=== PATIENT | female | born 1970 | race Caucasian/White ===

== ENCOUNTER 2016-07-15 13:33 | Emergency (ER) | payer MEDICAID, OTHER ==
[~2016-07-15] VITALS: Ht 147.3 cm; Wt 63.0 kg
[~2016-07-15 13:33] MED LIST: CHOL1CAP6 PO; FIORIC PO; MAGN1CAP PO; ONE50TAB4 PO; VITA100T15 PO
[2016-07-15 13:35] VITALS: BP 115/67; PULSE 70; RESP 20; TEMP 97.8; O2SAT 96
--- NOTE | 2016-07-15 14:20 | PD ---
HPI . right heel pain for 6 mts Chief Complaint: Pain: Acute or Chronic Time Seen by Provider: 14:20 Travel History International Travel<30 days: No Contact w/Intl Traveler<30days: No Traveled to known affect area: No History of Present Illness HPI 45 yr old female with no significant PMH here with c/o right heel pain for 6 mts. Patient says she has been experiencing right heel pain for over 6 mts. She has seen her PCP Dr. Chacon and was told to have xrays, however it has been 3 weeks and she has not heard any instructions back as where to have those done. She decided to come to the ED to get the xrays ordered and expedited. She denies any recent injury or trauma. She has no other complaints. 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) Social History Alcohol Use: No Tobacco Use: No Substance Use: No Allergies-Medications (Allergen,Severity, Reaction): Coded Allergies: Bactrim (Verified Allergy, Intermediate, 07/15/16) HIVES Reported Meds & Prescriptions Reported Meds & Active Scripts Active Mobic (Meloxicam) 7.5 Mg Tab 7.5 Mg PO DAILY Review of Systems General / Constitutional: No: Fever Eyes: No: Visual changes HENT: No: Headaches Cardiovascular: No: Chest Pain or Discomfort Respiratory: No: Shortness of Breath Gastrointestinal: No: Abdominal Pain Genitourinary: No: Dysuria Musculoskeletal: Positive: Pain (right heel pain) Skin: No Rash Neurologic: No: Weakness Psychiatric: No: Depression Endocrine: No: Polydipsia Hematologic/Lymphatic: No: Easy Bruising Physical Exam Narrative GENERAL: AAO x 3, no acute distress, Well-nourished, well-developed patient. SKIN: Warm and dry. No visible rashes or bruising. No visible abnormality of b/ l feet. HEAD: Normocephalic and atraumatic. EYES: No scleral icterus. No injection or drainage. ENT: No nasal drainage noted. Mucous membranes pink. Airway patent. NECK: Supple, trachea midline. No JVD. CARDIOVASCULAR: Regular rate and rhythm without murmurs, gallops, or rubs. RESPIRATORY: Breath sounds equal bilaterally. No accessory muscle use. No rhonchi or rales. GASTROINTESTINAL: Abdomen soft, non-tender, nondistended. EXTREMITIES: No cyanosis or edema. Right foot: heel tender to touch. No pain with movement. Flexion and extension normal. Sensation is intact. BACK: Nontender without obvious deformity. No CVA tenderness. PSYCH: AAO x 3, normal affect. Data Data Last Documented VS Vital Signs Date Time Temp Pulse Resp B/P Pulse Ox O2 Delivery O2 Flow Rate FiO2 07/15/16 13:35 97.8 70 20 115/67 96 Room Air Orders Ketorolac Inj (Toradol Inj) (07/15/16 14:45) MDM Medical Decision Making Medical Screen Exam Complete: Yes Emergency Medical Condition: Yes Medical Record Reviewed: Yes Differential Diagnosis Plantar fasciitis, less likely bone spur, less likely fracture Narrative Course 45 yr old female with no significant PMH here with c/o right heel pain for 6 mts. Patient says she has been experiencing right heel pain for over 6 mts. She has seen her PCP Dr. Chacon and was told to have xrays, however it has been 3 weeks and she has not heard any instructions back as where to have those done. She decided to come to the ED to get the xrays ordered and expedited. She denies any recent injury or trauma. She has no other complaints. Patient seen and examined. There are no acute findings on her exam other than some tenderness of entire right heel. I discussed with her the pathophysiology and disease process of plantar fasciitis, which is what I suspect she may have. I recommend follow-up with her primary care provider and referral to podiatry for further workup and treatment. I discussed with her that my index of suspicion for fracture is low, and she was in agreement. I recommended some anti-inflammatories to see if they help with her symptoms. She was encouraged to reach out to her primary care provider this week. Patient verbalized understanding of instructions, questions were answered, and thanked me for their care. I advised them if their condition worsens, please return to the nearest emergency room for further care. Diagnosis Primary Impression: Foot pain, left Additional Impression: Plantar fasciitis of left foot Patient Instructions: General Instructions, Plantar Fasciitis (ED), Plantar Fasciitis Exercises (GEN) Additional Instructions: Please return to emergency department if your symptoms return or worsen. Follow up with your primary care provider. Take medications as prescribed. As we discussed, you will need to see a silviculturist for these issues. Please follow-up with your primary care provider for appropriate referral. Med/Other Pt SpecificInfo: Prescription(s) given Scripts Meloxicam (Mobic)7.5 Mg Tab7.5 Mg PO DAILY #20 TAB Ref 0 Prov:Carol Saenz MD 07/15/16 Disposition: 01 DISCHARGE HOME Condition: Stable Sharlene Villalta Jul 15, 2016 14:20
[2016-07-15] MEDS ORDERED: MOBI7.5T PO (14:35)
[2016-07-15] MEDS ORDERED: KETOROLAC TROMETHAMINE 60 MG/2 ML (IM) VIAL IM ONE (14:45)
== END 2016-07-15 14:49 | disposition home or self-care (01) ==
LOC: NEPB 13:33
DX: M72.2 Plantar fascial fibromatosis (principal)
CPT/HCPCS: 96372; 99283; J1885

== ENCOUNTER 2017-03-22 19:00 | Inpatient (IN) | payer MEDICAID ==
[~2017-03-22] VITALS: Ht 147.3 cm; Wt 72.9 kg
[~2017-03-22 19:00] MED LIST changes: -CHOL1CAP6 PO; -FIORIC PO; -MAGN1CAP PO; +MOBI7.5T PO; -ONE50TAB4 PO; -VITA100T15 PO
[2017-03-22 19:01] VITALS: BP 120/67; PULSE 75; RESP 16; TEMP 98.5; O2SAT 97
[2017-03-22] MEDS ORDERED: IBUP1TAB7 PO (20:24)
[2017-03-22] MEDS ORDERED: MECL12.574 PO (20:26)
[2017-03-22] MEDS ORDERED: SIMV10TA PO (20:26)
[2017-03-22] MEDS ORDERED: SODIUM CHLOR 0.9% 1000 ML INJ 1,000 ML IV SCH (20:55)
[2017-03-22] MEDS ORDERED: SODIUM CHLORIDE 0.9% FLUSH 5 ML FLUSH IV FLUSH PRN (21:00)
[2017-03-22 21:26] LABS: AUTOMATED NEUTROPHIL # 4.9 TH/MM3 (1.8-7.7); BASOPHIL % 0.7 % (0.0-2.0); EOSINOPHIL # 0.2 TH/MM3 (0-0.4); EOSINOPHIL % 2.4 % (0.0-4.0); HEMATOCRIT 36.3 % (35.0-46.0); HEMO FLAGS DIFF FINAL; LYMPH % 24.6 % (9.0-44.0); LYMPHOCYTE # 1.8 TH/MM3 (1.0-4.8); MEAN CELL VOLUME 89.7 FL (80.0-100.0); MEAN CORPUSCULAR HEMOGLOBIN 29.4 PG (27.0-34.0); MEAN CORPUSCULAR HGB CONC 32.8 % (32.0-36.0); MONO % 5.1 % (0.0-8.0); NEUT % 67.2 % (16.0-70.0); PLATELET COUNT 232 TH/MM3 (150-450); RED BLOOD COUNT 4.05 MIL/MM3 (4.00-5.30); RED CELL DISTRIBUTION WIDTH 15.7 % (11.6-17.2); WHITE BLOOD COUNT 7.4 TH/MM3 (4.0-11.0)
[2017-03-22 21:39] LABS: APTT (PATIENT) 26.1 SEC (24.3-30.1); PROTHROMBIN TIME - PATIENT 11.2 SEC (9.8-11.6)
[2017-03-22 21:45] LABS: ALT (GPT) 26 U/L (10-53)
[2017-03-22 21:55] LABS: ALKALINE PHOSPHATASE 83 U/L (45-117); ANION GAP 5 MEQ/L (5-15); AST (GOT) 20 U/L (15-37); BICARBONATE 25.8 MEQ/L (21.0-32.0); BLOOD UREA NITROGEN 10 MG/DL (7-18); CHLORIDE 106 MEQ/L (98-107); GLOMERULAR FILTRATION RATE 116 ML/MIN (>89); SODIUM (NA) 137 MEQ/L (136-145); TOTAL BILIRUBIN ADULT 0.3 MG/DL (0.2-1.0)
--- NOTE | 2017-03-22 21:55 | PD ---
HPI Chief Complaint: Altered Mental Status Time Seen by Provider: 20:45 Travel History International Travel<30 days: No Contact w/Intl Traveler<30days: No Traveled to known affect area: No History of Present Illness HPI Patient is a 46-year-old female with history of intracranial shunt as well as brain tumors, presents to emergency room with her mother for evaluation of altered mental status. As per patient's mother, patient has not been acting like her normal self for the past week. Patient reports that given her past medical history of intracranial shunts and brain tumors, for the past week, she has been ataxic with abnormal gait. Mom reports the patient has not been acting like her normal self. Reports no fevers or chills, reports that her daughter is just "off." Mom reports that patient has history of a shunt placed in 2012, reports that she was diagnosed with a brain tumor, reports that the initial tumor was resected and a shunt was placed. She then was diagnosed with another brain tumor which the neurosurgeon was watching. Patient was initially seen Dr. Cagle at [facility] at [facility]. Reports that she was last seen 2 years ago as her insurance company changed. Patient reports that she has not seen a neurologist since then, that she was having MRI was of her brain every 6 months for evaluation of brain tumor, last MRI was 2 years ago. Patients mom reports that she has been trying to make a follow-up appointment with a neurosurgeon, she did make an appointment with a neurosurgeon but does not remember his name. Patient at this time with no complaints, denies headache , denies chest pain or shortness of breath. Patient denies any fevers or chills. Patient reports dizziness. Patient denies any trauma to her head or neck. 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) Social History Alcohol Use: No Tobacco Use: No Substance Use: No Allergies-Medications (Allergen,Severity, Reaction): Coded Allergies: sulfamethoxazole (Unverified Allergy, Intermediate, 03/22/17) HIVES trimethoprim (Unverified Allergy, Intermediate, 03/22/17) HIVES Reported Meds & Prescriptions Reported Meds & Active Scripts Active Reported Simvastatin 10 Mg Tab 10 Mg PO DAILY Meclizine (Meclizine HCl) 12.5 Mg Tab 12.5 Mg PO DIRECTED PRN Ibuprofen 800 Mg Tab 800 Mg PO Q8H PRN Review of Systems General / Constitutional: No: Fever Eyes: No: Visual changes HENT: No: Headaches Cardiovascular: No: Chest Pain or Discomfort Respiratory: No: Shortness of Breath Gastrointestinal: No: Abdominal Pain Genitourinary: No: Dysuria Musculoskeletal: No: Pain Skin: No Rash Neurologic: Positive: Dizziness, Ataxia, Change in Mentation, No: Weakness Psychiatric: No: Depression Endocrine: No: Polydipsia Hematologic/Lymphatic: No: Easy Bruising Physical Exam Narrative GENERAL: NAD SKIN: Focused skin assessment warm/dry. HEAD: Atraumatic. Normocephalic. EYES: Pupils equal and round. No scleral icterus. No injection or drainage. ENT: No nasal bleeding or discharge. Mucous membranes pink and moist. NECK: Trachea midline. No JVD. CARDIOVASCULAR: Regular rate and rhythm. No murmur appreciated. RESPIRATORY: No accessory muscle use. Clear to auscultation. Breath sounds equal bilaterally. GASTROINTESTINAL: Abdomen soft, non-tender, nondistended. Hepatic and splenic margins not palpable. MUSCULOSKELETAL: No obvious deformities. No clubbing. No cyanosis. No edema. NEUROLOGICAL: Awake and alert. No obvious cranial nerve deficits. Motor grossly within normal limits. Normal speech. PSYCHIATRIC: Appropriate mood and affect; insight and judgment normal. Data Data Last Documented VS Vital Signs Date Time Temp Pulse Resp B/P (MAP) Pulse Ox O2 Delivery O2 Flow Rate FiO2 03/23/17 00:26 80 18 109/64 (79) 98 Room Air 03/22/17 19:01 98.5 Orders Orders Mri Brain W&W/O Contrast (03/22/17 ) Electrocardiogram (03/22/17 20:55) Complete Blood Count With Diff (03/22/17 20:55) Comprehensive Metabolic Panel (03/22/17 20:55) Creatine Kinase (Cpk) (03/22/17 20:55) Prothrombin Time / Inr (Pt) (03/22/17 20:55) Act Partial Throm Time (Ptt) (03/22/17 20:55) Troponin I (03/22/17 20:55) Urinalysis - C+S If Indicated (03/22/17 20:55) Ecg Monitoring (03/22/17 20:55) Iv Access Insert/Monitor (03/22/17 20:55) Oximetry (03/22/17 20:55) Sodium Chloride 0.9% Flush (Ns Flush) (03/22/17 21:00) Sodium Chlor 0.9% 1000 Ml Inj (Ns 1000 M (03/22/17 20:55) Meclizine (Antivert) (03/22/17 22:00) Ct Brain W/O Iv Contrast(Rout) (03/22/17 ) Urine Culture (03/22/17 22:25) Admit Order (Ed Use Only) (03/23/17 01:04) Labs Laboratory Tests Test 03/22/17 21:04 03/22/17 22:25 White Blood Count 7.4 TH/MM3 Red Blood Count 4.05 MIL/MM3 Hemoglobin 11.9 GM/DL Hematocrit 36.3 % Mean Corpuscular Volume 89.7 FL Mean Corpuscular Hemoglobin 29.4 PG Mean Corpuscular Hemoglobin Concent 32.8 % Red Cell Distribution Width 15.7 % Platelet Count 232 TH/MM3 Mean Platelet Volume 7.6 FL Neutrophils (%) (Auto) 67.2 % Lymphocytes (%) (Auto) 24.6 % Monocytes (%) (Auto) 5.1 % Eosinophils (%) (Auto) 2.4 % Basophils (%) (Auto) 0.7 % Neutrophils # (Auto) 4.9 TH/MM3 Lymphocytes # (Auto) 1.8 TH/MM3 Monocytes # (Auto) 0.4 TH/MM3 Eosinophils # (Auto) 0.2 TH/MM3 Basophils # (Auto) 0.0 TH/MM3 CBC Comment DIFF FINAL Differential Comment Prothrombin Time 11.2 SEC Prothromb Time International Ratio 1.0 RATIO Activated Partial Thromboplast Time 26.1 SEC Blood Urea Nitrogen 10 MG/DL Creatinine 0.56 MG/DL Random Glucose 91 MG/DL Total Protein 7.3 GM/DL Albumin 3.5 GM/DL Calcium Level 8.8 MG/DL Alkaline Phosphatase 83 U/L Aspartate Amino Transf (AST/SGOT) 20 U/L Alanine Aminotransferase (ALT/SGPT) 26 U/L Total Bilirubin 0.3 MG/DL Sodium Level 137 MEQ/L Potassium Level 4.4 MEQ/L Chloride Level 106 MEQ/L Carbon Dioxide Level 25.8 MEQ/L Anion Gap 5 MEQ/L Estimat Glomerular Filtration Rate 116 ML/MIN Total Creatine Kinase 79 U/L Troponin I LESS THAN 0.02 NG/ML Urine Color LIGHT-YELLOW Urine Turbidity CLEAR Urine pH 7.5 Urine Specific Tiller 1.007 Urine Protein NEG mg/dL Urine Glucose (UA) NEG mg/dL Urine Ketones NEG mg/dL Urine Occult Blood NEG Urine Nitrite NEG Urine Bilirubin NEG Urine Urobilinogen LESS THAN 2.0 MG/DL Urine Leukocyte Esterase NEG Urine Squamous Epithelial Cells 0-5 /hpf Urine Bacteria RARE /hpf Urine Mucus RARE /lpf Urine Yeast (Budding) OCC Microscopic Urinalysis Comment CATH-CULTURE IND MDM Medical Decision Making Medical Screen Exam Complete: Yes Emergency Medical Condition: Yes Medical Record Reviewed: Yes Interpretation(s) EKG at 211: NSR at 71bpm, qt/qtc: 352/375, no acute st or t wave changes Vital Signs Date Time Temp Pulse Resp B/P (MAP) Pulse Ox O2 Delivery O2 Flow Rate FiO2 03/22/17 19:01 98.5 75 16 120/67 (84) 97 Room Air Differential Diagnosis Electrolyte abnormality, intracranial tumor versus intracranial hemorrhage, vertebrobasilar insufficiency Narrative Course During the course of the patients emergency department visit, the patients history, examination, and differential diagnosis were reviewed with the patient. The patient was placed on a monitor technician with oximetry and frequent blood pressure monitoring. The patient had a 20-gauge IV access obtained and blood work sent for analysis. The patient was initially provided IV fluids The patients laboratory studies were reviewed and remarkable for: CBC & BMP Diagram 03/22/17 21:04 Total Protein 7.3, Albumin 3.5, Calcium Level 8.8, Alkaline Phosphatase 83, Aspartate Amino Transf (AST/SGOT) 20, Alanine Aminotransferase (ALT/SGPT) 26, Total Bilirubin 0.3 MRI of the brain with and without contrast was initially ordered, MRI as unable to be performed as it is unknown will kind of shunt she has. Plan to obtain records from [facility]. In the meantime, will obtain ct of head. Patient will require admission to the hospital for further evaluation of her altered mental status and gait dysfunction Last Impressions Head CT 03/22/17 0000 Signed Impressions: Service Date/Time: Wednesday, March 22, 2017 23:02 - CONCLUSION: Abnormal appearance to the right frontal lobe with cerebral edema, effacement of the right lateral ventricle, and midline shift towards the left. Differential considerations include infarct and tumor. Recommend further characterization with MRI with and without contrast. Larry Muller MD CT of the head with concerns infarct versus tumor. Patient require MRI with and without contrast to further differentiate this abnormal appearance of the CT of the head. Patient does have a known tumor to her brain, records were requested from [facility]. We are unable to perform an MRI until I find out what the shunt used. Patient will admission to the hospital this time. Case reviewed with Dr. Barber who accepts pt to service Records were received from [facility]. Critical Care Narrative Aggregate critical care time was 45 minutes. Time to perform other separately billable procedures was not included in the critical care time. My time did not include minutes spent treating any other patients simultaneously or on activities that did not directly contribute to the patient's treatment. The services I provided to this patient were to treat and/or prevent clinically significant deterioration that could result in: , decompensation, deterioration I provided critical care services requiring my management, as noted below: Chart data review, documentation time, medication orders and management, vital sign assessments/reviewing monitor data, ordering and reviewing lab tests, ordering and interpreting/reviewing x-rays and diagnostic studies, care of the patient and discussion of the patient with the admitting physicians. Diagnosis Primary Impression: Altered mental status, unspecified Additional Impressions: Ataxia Cerebral infarct Admitting Information Admitting Physician Requests: Admit Reina Villeda DO Mar 22, 2017 21:55
[2017-03-22 21:57] LABS: CREATINE KINASE 79 U/L (26-192); POTASSIUM 4.4 MEQ/L (3.5-5.1)
[2017-03-22] MEDS ORDERED: MECLIZINE HCL 25 MG TAB PO ONE (22:00)
[2017-03-22 22:44] LABS: BLOOD, URINE NEG (NEG); GLUCOSE,URINE NEG (NEG); KETONE, URINE NEG (NEG); NITRITE,URINE NEG (NEG); PH, URINE 7.5 (5.0-8.5); URINE COLOR LIGHT-YELLOW (YELLW/STRAW)
[2017-03-22 23:00] LABS: MUCUS URINE RARE /lpf (OCC)
[2017-03-22 23:01] LABS: BACTERIA, URINE RARE /hpf; COMMENT (UR) CATH-CULTURE IND; CULTURE IF INDICATED CATH CULTURE IND; SQUAMOUS EPITHELIAL CELL URINE 0-5 /hpf (0-5)
[2017-03-22 23:12] VITALS: BP 145/62; PULSE 84; RESP 18; O2SAT 100
[2017-03-22 23:13] VITALS: O2SAT 100
--- NOTE | 2017-03-22 23:36 | RADRPT ---
EXAM DATE/TIME: 03/22/2017 23:02 [facility] COMPARISON: CT BRAIN W & W/O CONTRAST, January 24, 2016, 20:44. INDICATIONS : Altered mental status. 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 ventricular shunt ENCOUNTER: Initial ACUITY: 1 day PAIN SCALE: Non-responsive LOCATION: cranial TECHNIQUE: Multiple contiguous axial images were obtained of the head. Using automated exposure control and adj ustment of the mA and/or kV according to patient size, radiation dose was kept as low as reasonably a chievable to obtain optimal diagnostic quality images. DICOM format image data is available electro nically for review and comparison. FINDINGS: Examination is abnormal. Prior CT in January 2016 demonstrated ventriculostomy catheter in the rig ht frontal region and left craniotomy. There are new findings on today's CT including right frontal cerebral edema, 3 mm midline shift to the left at the level of the 3rd ventricle, and effacement of t he frontal horn and body of the right lateral ventricle. These findings suggest tumor or infarct in the right frontal lobe. There is good nava-white matter differentiation in the left frontal lobe. R ight ventriculostomy catheter is in place with the tip near the 3rd ventricle. Left craniotomy defect with good approximation of the calvarial prosthesis. In the posterior fossa, there is a hyperdensit y in the posterior right bjorn with poorly defined margins and measuring 9 mm.. CONCLUSION: Abnormal appearance to the right frontal lobe with cerebral edema, effacement of the right lateral ve ntricle, and midline shift towards the left. Differential considerations include infarct and tumor. Recommend further characterization with MRI with and without contrast. Larry Muller MD on March 22, 2017 at 23:13 Board Certified Radiologist. This report was verified electronically.
[2017-03-23] VITALS (16 sets, daily range): BP systolic 99–125; BP diastolic 53–86; PULSE 70–99; RESP 15–25; TEMP 97.6–98.8; O2SAT 92–99
[2017-03-23] MEDS ORDERED: SODIUM CHLORIDE 0.9% FLUSH 10 ML FLUSH IV FLUSH PRN (01:15)
[2017-03-23] MEDS ORDERED: MAGNESIUM HYDROXIDE SUSP 30 ML CUP PO PRN (01:15)
[2017-03-23] MEDS ORDERED: RESP: ALBUTEROL 2.5 MG/3 ML NEB (PRN) INH (01:15)
[2017-03-23] MEDS ORDERED: CHLORHEXIDINE GLUCONATE 2 % 1 PACK (2 CLOTHS) TOP PRN (01:15)
[2017-03-23] MEDS ORDERED: ONDANSETRON HCL 4 MG/2 ML VIAL IV PUSH PRN (01:15)
[2017-03-23] MEDS ORDERED: BISACODYL 10 MG SUPP RECTAL PRN (01:15)
[2017-03-23] MEDS ORDERED: MISCELLANEOUS NURSING INFORMATION XX SCH (01:15)
[2017-03-23] MEDS ORDERED: LACTULOSE SYRUP 20 GM/30 ML CUP PO PRN (01:15)
[2017-03-23] MEDS ORDERED: SENNOSIDES 8.6 MG TAB PO PRN (01:15)
[2017-03-23] MEDS: ACETAMINOPHEN 325 MG TAB PO PRN ×3 (02:22→11:31)
[2017-03-23] MEDS: SODIUM CHLOR 0.9% 1000 ML INJ 1,000 ML IV SCH ×3 (02:22→23:18)
[2017-03-23] MEDS: CHLORHEXIDINE GLUCONATE 2 % 1 PACK (2 CLOTHS) TOP SCH (04:00)
[2017-03-23] MEDS: DEXAMETHASONE SOD PHOS 4 MG/ML VIAL IV PUSH SCH ×4 (06:00→23:18)
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
[2017-03-23] MEDS ORDERED: MECLIZINE HCL 25 MG TAB PO PRN (08:45)
[2017-03-23] MEDS: SODIUM CHLORIDE 0.9% FLUSH 10 ML FLUSH IV FLUSH SCH ×2 (09:00→20:52)
[2017-03-23] MEDS: PRAVASTATIN SOD 20 MG TAB PO SCH (09:41)
[2017-03-23] MEDS: PANTOPRAZOLE SOD 40 MG DELAYED RELEASE TAB PO SCH (09:41)
[2017-03-23] MEDS: DOCUSATE SODIUM 50 MG/SENNA 8.6 MG TAB PO SCH ×2 (09:41→21:00)
--- NOTE | 2017-03-23 13:20 | HHI.CCPN ---
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 emergency department for "not acting like herself", headache, and abnormal gait for about 3 weeks. Her mother notes that she is very slow with performing ADLs like buckling her seatbelt and dressing herself. Her gait has been slow and she leans to the left when she walks .No falls, seizures, vision changes. Reportedly she has a known second brain tumor and was getting serial MRI every 6 months. She has been unable to follow up with neurology or neurosurgery due to financial/insurance status. CT brain demonstrates right frontal lobe edema versus infarct. There is some mass effect with about 3 mm of midline shift. MRI pending. No fever, chills, chest pain, shortness of breath, palpitations, dysuria. Remainder of review of systems negative. 03/23: Presently researching the make of BURNISHER shunt to decide if MRI compatible. No change in neuro status. Objective Vital Signs Date Time Temp Pulse Resp B/P (MAP) Pulse Ox O2 Delivery O2 Flow Rate FiO2 03/23/17 12:00 86 03/23/17 12:00 97.6 15 102/61 (75) 95 03/23/17 07:00 Room Air Intake and Output 03/23/17 03/23/17 03/24/17 08:00 16:00 00:00 Intake Total 240 ml Output Total 500 ml Balance -260 ml Result Diagram: 03/22/17210303/22/172103 Objective Remarks GENERAL: Well-nourished, well-developed obese female in ISC bed. SKIN: Warm and dry. HEAD: Atraumatic. Normocephalic. EYES: Pupils equal and round, 4 mm and reactive to 2 mm bilaterally. Extra ocular movements intact. No scleral icterus. No injection or drainage. ENT: No nasal bleeding or discharge. Mucous membranes pink and moist. NECK: Trachea midline. Airway widely patent. CARDIOVASCULAR: Regular rate and rhythm. NL S1S2. No murmurs rubs or gallops. No JVD. RESPIRATORY: Breathing comfortably on room air with no accessory muscle use. Clear to auscultation bilaterally. GASTROINTESTINAL: Abdomen soft, non-tender, nondistended. Bowel sounds active. No guarding. MUSCULOSKELETAL: Extremities without clubbing, cyanosis, or edema. No obvious deformities. NEUROLOGICAL: Awake and alert. No obvious cranial nerve deficits. No nystagmus. No pronator drift. Strength 4+/5 triceps/biceps/deltoid bilaterally. Otherwise strength is 5/5 throughout. No response to Babinski. A/P Problem List: (1) Headache ICD Code: R51 - Headache Status: Acute (2) Obesity ICD Code: E66.9 - Obesity, unspecified Status: Chronic (3) Cerebral edema ICD Code: G93.6 - Cerebral edema Status: Chronic (4) BURNISHER (ventriculoperitoneal) shunt status ICD Code: Z98.2 - Presence of cerebrospinal fluid drainage device Status: Chronic (5) Meningioma ICD Code: D32.9 - Benign neoplasm of meninges, unspecified Status: Chronic (6) BMI 30.0-30.9,adult ICD Code: Z68.30 - Body mass index (BMI) 30.0-30.9, adult Status: Chronic (7) Dyslipidemia ICD Code: E78.5 - Hyperlipidemia, unspecified Status: Chronic (8) Altered mental status ICD Code: R41.82 - Altered mental status, unspecified Status: Acute Assessment and Plan NEURO: History of benign L frontal lobe brain tumor s/p resection BURNISHER shunt in place R frontal lobe edema - ?secondary to tumor. Infarct could not be ruled out by CT. Will obtain MRI to glean more information and determine further workup and management from there. Decadron 4 mg IV q6 hours. Neurosurgery consulted. RESP: On room air CV: Hyperlipidemia Continue simvastatin 10 mg by mouth daily GI: Obesity Regular diet FEN/RENAL: Normal renal function. Monitor electrolytes and replace as indicated. ID: UA with rare bacteria, occasional yeast. She denies symptoms. Will follow- up culture HEME: H/o ALL age 1 s/p radiation 'No acute hematologic issues. ENDO: Euglycemic PROPH: SCDs for DVT prophylaxis. Protonix 40 mg by mouth daily for stress ulcer prophylaxis. ACCESS: Peripheral IV providing adequate access at this time Overall impression: Recent deterioration in performance of minor tasks. BURNISHER shunt in place following resection of benign brain tumor. MRI pending. Problem Qualifiers (1) Obesity: Rodolfo Mcnair MD Mar 23, 2017 13:20
--- NOTE | 2017-03-23 15:48 | EKG ---
Date Performed: 03/22/2017 Time Performed: 21:11:06 PTAGE: 46 years EKG: Sinus rhythm NORMAL ECG NO PREVIOUS TRACING DOCTOR: Vasyl Nuñez Interpretating Date/Time 03/23/2017 15:46:15
--- NOTE | 2017-03-23 16:03 | EKG ---
Date Performed: 03/23/2017 Time Performed: 07:23:25 PTAGE: 46 years EKG: Sinus rhythm LOW QRS VOLTAGE IN PRECORDIAL LEADS Compared to prior tracing no significant change BORDERLINE ECG PREVIOUS TRACING : 03/22/2017 21.11 DOCTOR: Vasyl Nuñez Interpretating Date/Time 03/23/2017 16:02:42
--- NOTE | 2017-03-23 16:04 | RADRPT ---
EXAM DATE/TIME: 03/23/2017 15:00 [facility] COMPARISON: No previous studies available for comparison. INDICATIONS : Shunt settings pre mri MEDICAL HISTORY : SALES RECRUITER shunt, tumor resection SURGICAL HISTORY : Craniotomy. ventricular shunt ENCOUNTER: Initial ACUITY: 2 days PAIN SCORE: 0/10 LOCATION: Bilateral cranial FINDINGS: Plate and screw fixation of the left calvarium is noted. SALES RECRUITER shunt catheter tubing is present with tip terminating in the midline. Shunt valve settings are unable to be determined on this examination. CONCLUSION: SALES RECRUITER shunt catheter as above. The valve settings are indeterminate. Davin Rushing MD on March 23, 2017 at 15:55 Board Certified Radiologist. This report was verified electronically.
[2017-03-23] MEDS ORDERED: GADODIAMIDE PF 287 MG/ML 5 ML VIAL (for RAD MRI) IVCONTRAST ONE (18:07)
--- NOTE | 2017-03-23 18:10 | RADRPT ---
EXAM DATE/TIME: 03/23/2017 16:32 [facility] COMPARISON: CT BRAIN W/O CONTRAST, March 22, 2017, 23:02. INDICATIONS : Altered mental status. CONTRAST: 14 cc Omniscan (gadodiamide) IV MEDICAL HISTORY : Leukemia. SURGICAL HISTORY : Craniotomy. Hysterectomy. 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 ENCOUNTER: Initial ACUITY: 1 day PAIN SCORE: 0/10 LOCATION: cranial TECHNIQUE: Multiplanar, multisequence MRI of the brain was performed both prior to and following the administrat ion of paramagnetic contrast. FINDINGS: There is no evidence for acute infarction. There is a focal area of decreased T2 signal and slig htly decreased T1 signal with a few thin rim of increased T1 signal at the level of the bjorn to the r ight of midline. There is no abnormal enhancement. This is hyperdense on CT. There is a right frontal ventriculostomy catheter are identified and the tip terminates in third ventricle. The patient has h ad previous left frontal craniotomy. There is a large heterogeneously enhancing extra-axial mass in t he right frontal region, which measures on axial image 153 5.8 x 2.7 cm in transverse dimension. It a buts the falx cerebri which is focally thickened, and there is abnormal enhancing tissue on axial amadeo ge 150 in the left frontal region as well measuring 8 x 8 mm in AP and transverse. This mass demonstr ates mass effect on the right frontal lobe and ventricular system displaced inferiorly, as well as mi dline shift from right to left of the 1.3 cm. Also present is a dural based right high parietal extra -axial mass with heterogeneous enhancement measuring 3 x 1.3 cm in transverse dimension. There is dif fuse dural enhancement greatest along the right cerebral convexity. There is focal dural thickening l ateral to the right temporal region measuring 8 x 17 mm in transverse and AP dimension. CONCLUSION: 1. Multiple avidly enhancing extra-axial dural based masses in the right frontal region. The dominant mass in the right frontal region demonstrates extension across the falx in the left frontal region. There is significant mass effect and vasogenic edema. Dural enhancement is identified. I believe ther e is also some intraparenchymal involvement. 2. The findings would be most concerning for malignant spread of lymphoma/leukemia given the clinical history. The focus of decreased T2 signal and blooming artifact in the right bjorn may represent a r emote insult/bleed or cavernoma. Davin Rushing MD on March 23, 2017 at 17:58 Board Certified Radiologist. This report was verified electronically.
--- NOTE | 2017-03-23 23:15 | PD.CONS ---
HPI Service Neurosurgery Consult Requested By Orthotic Technician Reason for Consult Brain lesion Primary Care Physician Isaak Chacon, History of Present Illness The patient is a 46-year-old female who is accompanied by her mother who gives most of the history. The patient has a history of leukemia diagnosed and treated at age 1-1/2 years with treatment up until 10 years old. In 2012 she was diagnosed with a left frontal meningioma which was resected at [facility] in 2012, with an additional surgery for a bone flap revision in 2012. She developed postoperative hydrocephalus and underwent a ventriculoperitoneal shunt in 2013. The mother states that the patient has had a known right sided tumor since 2012. This was previously followed with serial MRI imaging every 6-12 months at [facility] until the past year or 2 when the patient had a change in her insurance coverage and could no longer be seen at [facility]. Since then she has had a neurology evaluation and last week a CT scan was obtained per neurology. The patient's mother states that she did not hear back from the neurologist regarding the CT case scan results and proceeded to the emergency room last evening due to persistent progressive symptoms. The patient and her mother state that the patient has chronic headaches and dizziness which have not really changed recently. However the patient has noted approximately 1-2 weeks of progressive difficulty with comprehension and memory loss with increased difficulty coordinating her thought processes. However she does not have slurred speech. The mother states that her gait has become significantly slowed over the past week. She has also noted some problems with left upper extremity coordination. The patient denies any recent vision problems, nausea or vomiting. No fevers or chills. Review of Systems Constitutional: COMPLAINS OF: Dizziness, DENIES: Fever, Change in appetite Eyes: DENIES: Blurred vision, Diplopia, Vision loss Ears, nose, mouth, throat: DENIES: Hearing loss Respiratory: DENIES: Cough, Hemoptysis Cardiovascular: DENIES: Chest pain, Palpitations Gastrointestinal: DENIES: Abdominal pain, Nausea Musculoskeletal: DENIES: Joint pain, Muscle aches Hematologic/lymphatic: DENIES: Bruising Neurologic: COMPLAINS OF: Abnormal gait, Headache, Poor Balance, DENIES: Localized weakness Psychiatric: DENIES: Anxiety, Depression Past Family Social History Allergies: Coded Allergies: sulfamethoxazole (Unverified Allergy, Intermediate, 03/22/17) HIVES trimethoprim (Unverified Allergy, Intermediate, 03/22/17) HIVES Past Medical History 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 Previous radiation treatment. Negative diabetes, hypertension Dyslipidemia Past Surgical History Surgeries are as noted above. In previous hysterectomy. Reported Medications Reported Meds & Active Scripts Active Reported Simvastatin 10 Mg Tab 10 Mg PO DAILY Meclizine (Meclizine HCl) 12.5 Mg Tab 12.5 Mg PO DIRECTED PRN Ibuprofen 800 Mg Tab 800 Mg PO Q8H PRN Family History Uterine cancer in the patient's grandmother Social History No history of significant alcohol or cigarette use. Lives at home with her mother Physical Exam Vital Signs Vital Signs Date Time Temp Pulse Resp B/P (MAP) Pulse Ox O2 Delivery O2 Flow Rate FiO2 03/23/17 22:00 86 03/23/17 20:00 98.8 88 24 110/68 (82) 95 03/23/17 20:00 88 03/23/17 19:00 100 Room Air 03/23/17 18:00 99 03/23/17 16:00 77 18 108/53 (71) 96 03/23/17 16:00 77 03/23/17 15:00 82 03/23/17 14:00 90 03/23/17 12:00 86 03/23/17 12:00 97.6 86 15 102/61 (75) 95 03/23/17 11:32 22 03/23/17 10:00 96 03/23/17 08:00 91 03/23/17 08:00 98.2 91 25 125/57 (79) 97 03/23/17 07:00 70 03/23/17 07:00 95 Room Air 03/23/17 06:00 92 03/23/17 05:58 115/66 (82) 03/23/17 04:00 98.2 72 19 125/86 (99) 92 03/23/17 04:00 76 03/23/17 03:48 98.2 78 22 114/59 (77) 97 03/23/17 02:06 98.1 75 18 99/54 (69) 99 Room Air 03/23/17 00:26 80 18 109/64 (79) 98 Room Air 03/22/17 23:13 100 03/22/17 23:12 84 18 145/62 (89) 100 Room Air Physical Exam GENERAL: Pleasant moderately obese female in no apparent distress. SKIN: No abrasions, contusion, rash noted. Skin warm and dry. HEAD: Atraumatic. Normocephalic. No temporal or scalp tenderness. EYES: Sclerae are clear and nonicteric ENT: No facial edema or ecchymosis. No periorbital edema. No CSF otorrhea or rhinorrhea. No palpable facial fracture or deformity. NECK: Trachea midline. No cervical spine tenderness. CARDIOVASCULAR: Regular rate and rhythm without murmurs, gallops, or rubs. RESPIRATORY: Clear to auscultation. Breath sounds equal bilaterally. No wheezes , rales, or rhonchi. GASTROINTESTINAL: Abdomen soft, non-tender, nondistended. No hepato-splenomegaly , or palpable masses. No guarding. MUSCULOSKELETAL: Extremities without cyanosis, or edema. No joint tenderness, or edema noted. No calf tenderness. Dorsalis pedis pulses 2+ bilateral NEUROLOGICAL: Awake and alert Oriented X person, hospital Speech is clear, mild to moderate slowing of speech and thought processes. Follow simple commands well Answers questions appropriately Diminished judgment and insight Recent and remote memory are at least moderately diminished No evidence of anxiety or depression Pupils are equal and reactive to accommodation. Extra-ocular movements, visual morris to confrontation, facial sensorimotor, tongue, palate, sternocleidomastoid testing, hearing to finger rub testing, and bilateral shoulder shrug are all intact. Sensation is intact to light touch in all extremities Strength normal major flexion and extension groups all extremities Panchito's absent bilaterally No ankle clonus Plantar responses absent bilateral Fine motor movements are mildly impaired in the upper extremities Laboratory Laboratory Tests Test 03/23/17 04:30 Nasal Screen MRSA (PCR) MRSA NOT DETECTED Date/Time Source Procedure Growth Status 03/22/17 22:25 Urine Catheterized Urine Urine Culture - Preliminary RESULTS PENDING Resulted Result Diagram: 03/22/17210303/22/172103 Imaging Last Impressions Skull X-Ray 03/23/17 0000 Signed Impressions: Service Date/Time: Saturday, March 23, 2017 15:00 - CONCLUSION: GROUND WIRER shunt catheter as above. The valve settings are indeterminate. Davin Rushing MD Brain MRI 03/23/17 0000 Signed Impressions: Service Date/Time: Thursday, March 23, 2017 16:32 - CONCLUSION: 1. Multiple avidly enhancing extra-axial dural based masses in the right frontal region. The dominant mass in the right frontal region demonstrates extension across the falx in the left frontal region. There is significant mass effect and vasogenic edema. Dural enhancement is identified. I believe there is also some intraparenchymal involvement. 2. The findings would be most concerning for malignant spread of lymphoma/leukemia given the clinical history. The focus of decreased T2 signal and blooming artifact in the right bjorn may represent a remote insult/bleed or cavernoma. Davin Rushing MD Head CT 03/22/17 0000 Signed Impressions: Service Date/Time: Wednesday, March 22, 2017 23:02 - CONCLUSION: Abnormal appearance to the right frontal lobe with cerebral edema, effacement of the right lateral ventricle, and midline shift towards the left. Differential considerations include infarct and tumor. Recommend further characterization with MRI with and without contrast. Larry Muller MD Assessment and Plan Assessment and Plan Impression: The patient has a new large right frontal meningioma just adjacent to the ventriculoperitoneal shunt arising from the falx. There is a previously noted right parietal parafalcine and convexity meningioma which was present on a previous MRI from 2014, although somewhat larger on the MRI from 03/23/2017. Plan: Findings were discussed at length with the patient's mother. The previous MRI images from 2014 were reviewed with her and compared to continue MRI from 03/23/17. Due to the very extensive and rapid growth of the right frontal meningioma, I have recommended surgical resection of this lesion. There may be compromised of the sagittal sinus. Also the lesion is rather nonhomogeneous and appears to have significant vascularity. Therefore an MRA and MRV of the brain will be obtained prior to considering surgical intervention. Patient will be maintained on Decadron. She is at increased risk for seizure activity. Guanaco Leonard MD Mar 23, 2017 23:15
[2017-03-24] VITALS (7 sets, daily range): BP systolic 102–110; BP diastolic 52–61; PULSE 72–100; RESP 20–29; TEMP 97.7–98.2; O2SAT 92–100
[2017-03-24] MEDS: CHLORHEXIDINE GLUCONATE 2 % 1 PACK (2 CLOTHS) TOP SCH (04:00)
[2017-03-24] MEDS: DEXAMETHASONE SOD PHOS 4 MG/ML VIAL IV PUSH SCH ×2 (05:24→11:43)
[2017-03-24 06:27] LABS: AUTOMATED NEUTROPHIL # 8.3 TH/MM3 (1.8-7.7); BASOPHIL % 0.2 % (0.0-2.0); BICARBONATE 20.9 MEQ/L (21.0-32.0); HEMATOCRIT 34.9 % (35.0-46.0); HEMO FLAGS DIFF FINAL; LYMPHOCYTE # 0.9 TH/MM3 (1.0-4.8); MEAN CELL VOLUME 88.5 FL (80.0-100.0); MEAN CORPUSCULAR HEMOGLOBIN 29.6 PG (27.0-34.0); MEAN CORPUSCULAR HGB CONC 33.5 % (32.0-36.0); MONO % 0.8 % (0.0-8.0); PLATELET COUNT 249 TH/MM3 (150-450); POTASSIUM 3.8 MEQ/L (3.5-5.1); RED BLOOD COUNT 3.95 MIL/MM3 (4.00-5.30); RED CELL DISTRIBUTION WIDTH 15.4 % (11.6-17.2); WHITE BLOOD COUNT 9.3 TH/MM3 (4.0-11.0)
[2017-03-24] MEDS: DOCUSATE SODIUM 50 MG/SENNA 8.6 MG TAB PO SCH (08:12)
[2017-03-24] MEDS: PRAVASTATIN SOD 20 MG TAB PO SCH (08:12)
[2017-03-24] MEDS: PANTOPRAZOLE SOD 40 MG DELAYED RELEASE TAB PO SCH (08:12)
[2017-03-24] MEDS: SODIUM CHLORIDE 0.9% FLUSH 10 ML FLUSH IV FLUSH SCH (08:12)
--- NOTE | 2017-03-24 08:30 | HHI.CCPN ---
Subjective Remarks/Hospital Course 46 yo F with PMH of L frontal brain tumor status post resection in 2013 (pt reports meningioma?) and SENIOR COPYWRITER shunt, hyperlipidemia, ALL at age 3 with cure who presents to [facility] emergency department for "not acting like herself", headache, and abnormal gait for about 3 weeks. Her mother notes that she is very slow with performing ADLs like buckling her seatbelt and dressing herself. Her gait has been slow and she leans to the left when she walks .No falls, seizures, vision changes. Reportedly she has a known second brain tumor and was getting serial MRI every 6 months. She has been unable to follow up with neurology or neurosurgery due to financial/insurance status. CT brain demonstrates right frontal lobe edema versus infarct. There is some mass effect with about 3 mm of midline shift. MRI pending. No fever, chills, chest pain, shortness of breath, palpitations, dysuria. Remainder of review of systems negative. 03/23: Presently researching the make of SENIOR COPYWRITER shunt to decide if MRI compatible. No change in neuro status. 03/24: no complaints. still slightly weak on left, particularly LUE. MRI shows progression of disease, MRA/MRV pending for today. ROS negative. Objective Vital Signs Date Time Temp Pulse Resp B/P (MAP) Pulse Ox O2 Delivery O2 Flow Rate FiO2 03/24/17 07:00 100 Room Air 03/24/17 06:00 72 03/24/17 04:00 98.2 23 102/52 (69) Intake and Output 03/24/17 03/24/17 03/25/17 08:00 16:00 00:00 Intake Total 1000 ml Balance 1000 ml Result Diagram: 03/24/17 0533 03/24/17 0533 Objective Remarks GENERAL: obese female in [facility] bed. SKIN: Warm and dry. HEAD: Atraumatic. Normocephalic. EYES: Pupils equal and round, reactive and conjugate. No scleral icterus. No injection or drainage. ENT: No nasal bleeding or discharge. Mucous membranes pink and moist. NECK: Trachea midline. Airway widely patent. CARDIOVASCULAR: Regular rate and rhythm. sinus by tele. RESPIRATORY: Breathing comfortably on room air with no accessory muscle use. GASTROINTESTINAL: Abdomen soft, non-tender, nondistended. No guarding. MUSCULOSKELETAL: Extremities without clubbing, cyanosis, or edema. No obvious deformities. NEUROLOGICAL: Awake and alert. No obvious cranial nerve deficits. No nystagmus. No pronator drift. Strength 4+/5 triceps/biceps/deltoid bilaterally. Otherwise strength is 5/5 throughout. No response to Babinski. A/P Problem List: (1) Headache ICD Code: R51 - Headache Status: Acute (2) Obesity ICD Code: E66.9 - Obesity, unspecified Status: Chronic (3) Cerebral edema ICD Code: G93.6 - Cerebral edema Status: Chronic (4) SENIOR COPYWRITER (ventriculoperitoneal) shunt status ICD Code: Z98.2 - Presence of cerebrospinal fluid drainage device Status: Chronic (5) Meningioma ICD Code: D32.9 - Benign neoplasm of meninges, unspecified Status: Chronic (6) BMI 30.0-30.9,adult ICD Code: Z68.30 - Body mass index (BMI) 30.0-30.9, adult Status: Chronic (7) Dyslipidemia ICD Code: E78.5 - Hyperlipidemia, unspecified Status: Chronic (8) Altered mental status ICD Code: R41.82 - Altered mental status, unspecified Status: Acute Assessment and Plan NEURO: History of benign L frontal lobe brain tumor s/p resection SENIOR COPYWRITER shunt in place R frontal lobe edema - secondary to tumor. MRI with significant progression of disease. MRA/MRV pending to confirm possible sinus thrombosis. Decadron 4 mg IV q6 hours. Neurosurgery consulted. RESP: On room air CV: Hyperlipidemia Continue simvastatin 10 mg by mouth daily GI: Obesity Regular diet FEN/RENAL: Normal renal function. Monitor electrolytes and replace as indicated. ID: UA with rare bacteria, occasional yeast. She denies symptoms. so far culture is NGTD. HEME: H/o ALL age 1 s/p radiation 'No acute hematologic issues. ENDO: Euglycemic PROPH: SCDs for DVT prophylaxis. Protonix 40 mg by mouth daily for stress ulcer prophylaxis. ACCESS: Peripheral IV providing adequate access at this time Overall impression: Recent deterioration in performance of minor tasks. SENIOR COPYWRITER shunt in place following resection of benign brain tumor. MRI with progression of disease. will likely need resection. continue neuro checks and f/u imaging. further operative planning per neurosurgery. Problem Qualifiers (1) Obesity: Dain Kennedy MD Mar 24, 2017 08:29
--- NOTE | 2017-03-24 10:16 | HHI.NSPN ---
(Dario Mathis Marcello RYDERP) History Chief Complaint: Headache, dizziness (Dario Mathis) Interval History 03/23: The patient is a 46-year-old female who is accompanied by her mother who gives most of the history. The patient has a history of leukemia diagnosed and treated at age 1-1/2 years with treatment up until 10 years old. In 2012 she was diagnosed with a left frontal meningioma which was resected at [facility] in 2012, with an additional surgery for a bone flap revision in 2012. She developed postoperative hydrocephalus and underwent a ventriculoperitoneal shunt in 2013. The mother states that the patient has had a known right sided tumor since 2012. This was previously followed with serial MRI imaging every 6-12 months at [facility] until the past year or 2 when the patient had a change in her insurance coverage and could no longer be seen at [facility]. Since then she has had a neurology evaluation and last week a CT scan was obtained per neurology. The patient's mother states that she did not hear back from the neurologist regarding the CT case scan results and proceeded to the emergency room last evening due to persistent progressive symptoms. The patient and her mother state that the patient has chronic headaches and dizziness which have not really changed recently. However the patient has noted approximately 1-2 weeks of progressive difficulty with comprehension and memory loss with increased difficulty coordinating her thought processes. However she does not have slurred speech. The mother states that her gait has become significantly slowed over the past week. She has also noted some problems with left upper extremity coordination. The patient denies any recent vision problems, nausea or vomiting. No fevers or chills. 03/24: The patient is awake and alert this morning when seen. She still has a frontal and vertex headache. She does endorse some dizziness. She denies any nausea, abdominal pain, numbness, tingling or weakness. She does feel tired. She went for a skull x-ray yesterday to determine her shunt settings ( Unfortunately the settings were not able to be obtained.) and then went for an MRI brain which demonstrated a new large right frontal meningioma and increase in size of the right parietal parafalcine and convexity meningoma. Nursing reports that the patient is going down for a MRA and MRV brain this morning. (Dario Mathis) System Review Comments Neurologic: Frontal headache, dizziness. Remainder of the ROS is negative. (Dario Mathis) Exam Results 03/22/17 03/22/17 03/23/17 03/23/17 03/24/17 03/24/17 06:00 18:00 06:00 18:00 06:00 18:00 Intake Total 1240 ml 800 ml 1000 ml Output Total 500 ml Balance 740 ml 800 ml 1000 ml Intake Oral 240 ml 800 ml 1000 ml IV Total 1000 ml Output Urine Total 500 ml # Voids 1 7 3 # Bowel Movements 1 0 Vital Signs Date Time Temp Pulse Resp B/P (MAP) Pulse Ox O2 Delivery O2 Flow Rate FiO2 03/24/17 08:00 88 03/24/17 08:00 98.1 88 20 110/59 (76) 97 03/24/17 07:00 100 Room Air 03/24/17 06:00 72 03/24/17 04:00 98.2 76 23 102/52 (69) 92 03/24/17 04:00 76 03/24/17 02:00 86 03/24/17 00:00 90 03/24/17 00:00 97.7 90 24 106/61 (76) 100 03/23/17 22:00 86 03/23/17 20:00 98.8 88 24 110/68 (82) 95 03/23/17 20:00 88 03/23/17 19:00 100 Room Air 03/23/17 18:00 99 03/23/17 16:00 77 18 108/53 (71) 96 03/23/17 16:00 77 03/23/17 15:00 82 03/23/17 14:00 90 03/23/17 12:00 86 03/23/17 12:00 97.6 86 15 102/61 (75) 95 03/23/17 11:32 22 03/23/17 10:00 96 03/23/17 08:00 91 03/23/17 08:00 98.2 91 25 125/57 (79) 97 03/23/17 07:00 70 03/23/17 07:00 95 Room Air 03/23/17 06:00 92 03/23/17 05:58 115/66 (82) 03/23/17 04:00 98.2 72 19 125/86 (99) 92 03/23/17 04:00 76 03/23/17 03:48 98.2 78 22 114/59 (77) 97 03/23/17 02:06 98.1 75 18 99/54 (69) 99 Room Air 03/23/17 00:26 80 18 109/64 (79) 98 Room Air 03/22/17 23:13 100 03/22/17 23:12 84 18 145/62 (89) 100 Room Air 03/22/17 19:01 98.5 75 16 120/67 (84) 97 Room Air (Dario Mathis) Physical Examination GENERAL: Patient is awake & alert and readily interacts this morning. Her affect is normal and she is not in any apparent distress. HEENT: Normocephalic, atraumatic. Face is symmetrical. PERRLA 4 mm brisk, EOMI. MMM & pink, tongue midline to protrusion. MUSCULOSKELETAL: RIZO w/o difficulty, no evident deformity or clubbing. NEUROLOGICAL: AAOx2 (person & place but not time). Speech clear & appropriate, slow to respond. Follows simple commands w/o difficulty. CN II-XII are grossly intact. Sensation is intact to light touch to all extremities. Motor strength is 4+ to 5/5 to all major flexion & extension muscle groups except for right deltoid 4/5 and left deltoid is 3+/5. (Dario Mathis) Lab, Micro, Other Results Recent Impressions Skull X-Ray 03/23/17 0000 Signed Impressions: Service Date/Time: Thursday, March 23, 2017 15:00 - CONCLUSION: SALES SUPPORT ADVISOR shunt catheter as above. The valve settings are indeterminate. Davin Rushing MD Brain MRI 03/23/17 0000 Signed Impressions: Service Date/Time: Thursday, March 23, 2017 16:32 - CONCLUSION: 1. Multiple avidly enhancing extra-axial dural based masses in the right frontal region. The dominant mass in the right frontal region demonstrates extension across the falx in the left frontal region. There is significant mass effect and vasogenic edema. Dural enhancement is identified. I believe there is also some intraparenchymal involvement. 2. The findings would be most concerning for malignant spread of lymphoma/leukemia given the clinical history. The focus of decreased T2 signal and blooming artifact in the right bjorn may represent a remote insult/bleed or cavernoma. Davin Rushing MD Head CT 03/22/17 0000 Signed Impressions: Service Date/Time: Wednesday, March 22, 2017 23:02 - CONCLUSION: Abnormal appearance to the right frontal lobe with cerebral edema, effacement of the right lateral ventricle, and midline shift towards the left. Differential considerations include infarct and tumor. Recommend further characterization with MRI with and without contrast. Larry Muller MD Laboratory Tests Test 03/22/17 21:04 03/22/17 22:25 03/23/17 04:30 03/24/17 05:33 White Blood Count 7.4 TH/MM3 9.3 TH/MM3 Red Blood Count 4.05 MIL/MM3 3.95 MIL/MM3 Hemoglobin 11.9 GM/DL 11.7 GM/DL Hematocrit 36.3 % 34.9 % Mean Corpuscular Volume 89.7 FL 88.5 FL Mean Corpuscular Hemoglobin 29.4 PG 29.6 PG Mean Corpuscular Hemoglobin Concent 32.8 % 33.5 % Red Cell Distribution Width 15.7 % 15.4 % Platelet Count 232 TH/MM3 249 TH/MM3 Mean Platelet Volume 7.6 FL 7.8 FL Neutrophils (%) (Auto) 67.2 % 89.0 % Lymphocytes (%) (Auto) 24.6 % 10.0 % Monocytes (%) (Auto) 5.1 % 0.8 % Eosinophils (%) (Auto) 2.4 % 0.0 % Basophils (%) (Auto) 0.7 % 0.2 % Neutrophils # (Auto) 4.9 TH/MM3 8.3 TH/MM3 Lymphocytes # (Auto) 1.8 TH/MM3 0.9 TH/MM3 Monocytes # (Auto) 0.4 TH/MM3 0.1 TH/MM3 Eosinophils # (Auto) 0.2 TH/MM3 0.0 TH/MM3 Basophils # (Auto) 0.0 TH/MM3 0.0 TH/MM3 CBC Comment DIFF FINAL DIFF FINAL Differential Comment Prothrombin Time 11.2 SEC Prothromb Time International Ratio 1.0 RATIO Activated Partial Thromboplast Time 26.1 SEC Blood Urea Nitrogen 10 MG/DL 9 MG/DL Creatinine 0.56 MG/DL 0.47 MG/DL Random Glucose 91 MG/DL 136 MG/DL Total Protein 7.3 GM/DL Albumin 3.5 GM/DL Calcium Level 8.8 MG/DL 8.9 MG/DL Alkaline Phosphatase 83 U/L Aspartate Amino Transf (AST/SGOT) 20 U/L Alanine Aminotransferase (ALT/SGPT) 26 U/L Total Bilirubin 0.3 MG/DL Sodium Level 137 MEQ/L 139 MEQ/L Potassium Level 4.4 MEQ/L 3.8 MEQ/L Chloride Level 106 MEQ/L 109 MEQ/L Carbon Dioxide Level 25.8 MEQ/L 20.9 MEQ/L Anion Gap 5 MEQ/L 9 MEQ/L Estimat Glomerular Filtration Rate 116 ML/MIN 142 ML/MIN Total Creatine Kinase 79 U/L Troponin I LESS THAN 0.02 NG/ML Urine Color LIGHT-YELLOW Urine Turbidity CLEAR Urine pH 7.5 Urine Specific [place] 1.007 Urine Protein NEG mg/dL Urine Glucose (UA) NEG mg/dL Urine Ketones NEG mg/dL Urine Occult Blood NEG Urine Nitrite NEG Urine Bilirubin NEG Urine Urobilinogen LESS THAN 2.0 MG/DL Urine Leukocyte Esterase NEG Urine Squamous Epithelial Cells 0-5 /hpf Urine Bacteria RARE /hpf Urine Mucus RARE /lpf Urine Yeast (Budding) OCC Microscopic Urinalysis Comment CATH-CULTURE IND Nasal Screen MRSA (PCR) MRSA NOT DETECTED (Dario Mathis) Medical Decision Making Impression and Plan Impression: 1. New large right frontal meningioma adjacent to the SALES SUPPORT ADVISOR shunt, arising from the falx. 2. Known right parafalcine & convexity meningioma slightly larger than MRI from 2015. 3. Increased risk for seizure activity. The patient is doing well, she continues to have her chronic headache & dizziness. She is neurologically intact except for deltoid weakness. Labs for today reviewed. Urine culture from pending. Plan: Discussed the plan of care with the patient. Recommend surgical resection of the right frontal meningioma. MRA & MRV brain today to evaluate possible compromise of the sagittal sinus. Continue dexamethasone. Patient will be maintained on Decadron. (Dario Mathis) Attending Statement The exam, history, and the medical decision-making described in the above note were completed with the assistance of the mid-level provider. I reviewed and agree with the findings presented. I attest that I had a [id number] encounter with the patient on the same day, and personally performed and documented my assessment and findings in the medical record. Please see my note of the same date. (Guanaco Leonard MD) Dario Mathis Mar 24, 2017 10:16 Guanaco Leonard MD Mar 24, 2017 13:15
[2017-03-24] MEDS ORDERED: GADODIAMIDE PF 287 MG/ML 20 ML VIAL (for RAD MRI) IVCONTRAST ONE (11:42)
[2017-03-24] MEDS: ACETAMINOPHEN 325 MG TAB PO PRN (11:43)
--- NOTE | 2017-03-24 12:16 | RADRPT ---
EXAM DATE/TIME: 03/24/2017 11:13 COMPARISON: MRA BRAIN W/O CONTRAST, March 24, 2017, 11:13. INDICATIONS : Cephalgia. CONTRAST: 20 cc Omniscan (gadodiamide) IV MEDICAL HISTORY : Leukemia. SURGICAL HISTORY : Craniotomy. Hysterectomy. shunt ENCOUNTER: Initial ACUITY: 1 day PAIN SCORE: 5/10 LOCATION: cranial FINDINGS: Intracranial veins and dural venous sinuses show normal configuration. No abnormal filling defect bart ntified. CONCLUSION: Brain MRV within normal limits. Martin Grove MD on March 24, 2017 at 12:11 Board Certified Radiologist. This report was verified electronically.
--- NOTE | 2017-03-24 12:18 | RADRPT ---
EXAM DATE/TIME: 03/24/2017 11:13 [place] COMPARISON: No previous studies available for comparison. INDICATIONS : Cephalgia. MEDICAL HISTORY : Leukemia. SURGICAL HISTORY : Craniotomy. Hysterectomy. Shunt. ENCOUNTER: Initial ACUITY: 2 day PAIN SCORE: 5/10 LOCATION: cranial Please note a normal MRA of the brain does not entirely exclude the possibility of a small aneurysm, nor the possibility of distal intracranial vessel disease. TECHNIQUE: 3D time of flight MRA was performed. Source images, multiplanar STS MIP, and 3D volume MIP reconstru ctions were reviewed. FINDINGS: There is excellent visualization of the major intracranial arteries out to the second-order branch ve ssels. There is no evidence for aneurysm, vessel truncation or stenosis, and no evidence for vascula r malformation. CONCLUSION: Brain MRA within normal limits. Martin Grove MD on March 24, 2017 at 12:15 Board Certified Radiologist. This report was verified electronically.
[2017-03-24] MEDS: SODIUM CHLOR 0.9% 1000 ML INJ 1,000 ML IV SCH (12:48)
--- NOTE | 2017-03-24 13:15 | HHI.NSPN ---
History Chief Complaint: Headache, dizziness Interval History 46-year-old female with history of left frontal meningioma resected 2012 at [facility]. The patient has a known right parietal convexity meningioma which has been followed conservatively with imaging studies over the past few years. She presents to the hospital now with recent progressive problems with increased beach difficulty, memory loss, difficulty with ambulation and coordination as well as possible increased headaches and dizziness. 03/23/17 MRI brain reveals a new right frontal dural based neoplasm consistent with meningioma. The lesion was not present on previous MRI from 2014. Mild increase in the size of the right parietal convexity meningioma. Exam Results Vital Signs Date Time Temp Pulse Resp B/P (MAP) Pulse Ox O2 Delivery O2 Flow Rate FiO2 03/24/17 10:00 100 03/24/17 08:00 98.1 20 110/59 (76) 97 03/24/17 07:00 Room Air Intake and Output 03/24/17 03/24/17 03/25/17 08:00 16:00 00:00 Intake Total 1000 ml Balance 1000 ml Physical Examination Gen.: Patient sitting up in bed. No acute distress Respiratory: Clear and nonlabored Neurologic: Mild slowing of speech and thought processes. Somewhat improved compared to examination. Moves all extremities well Ambulates without assist Lab, Micro, Other Results 03/24/2017 MRA and MRV of the brain images reviewed by the undersigned. No significant abnormalities noted in the arteriovenous cerebral vasculature. Head/Brain Mag Res Venography 03/24/17 0000 Signed Impressions: Service Date/Time: Friday, March 24, 2017 11:13 - CONCLUSION: Brain MRV within normal limits. Martin Grove MD Head Magnetic Resonance Angiography 03/24/17 0000 Signed Impressions: Service Date/Time: Friday, March 24, 2017 11:13 - CONCLUSION: Brain MRA within normal limits. Martin Grove MD Laboratory Tests Test 03/24/17 05:33 White Blood Count 9.3 TH/MM3 Red Blood Count 3.95 MIL/MM3 Hemoglobin 11.7 GM/DL Hematocrit 34.9 % Mean Corpuscular Volume 88.5 FL Mean Corpuscular Hemoglobin 29.6 PG Mean Corpuscular Hemoglobin Concent 33.5 % Red Cell Distribution Width 15.4 % Platelet Count 249 TH/MM3 Mean Platelet Volume 7.8 FL Neutrophils (%) (Auto) 89.0 % Lymphocytes (%) (Auto) 10.0 % Monocytes (%) (Auto) 0.8 % Eosinophils (%) (Auto) 0.0 % Basophils (%) (Auto) 0.2 % Neutrophils # (Auto) 8.3 TH/MM3 Lymphocytes # (Auto) 0.9 TH/MM3 Monocytes # (Auto) 0.1 TH/MM3 Eosinophils # (Auto) 0.0 TH/MM3 Basophils # (Auto) 0.0 TH/MM3 CBC Comment DIFF FINAL Differential Comment Blood Urea Nitrogen 9 MG/DL Creatinine 0.47 MG/DL Random Glucose 136 MG/DL Calcium Level 8.9 MG/DL Sodium Level 139 MEQ/L Potassium Level 3.8 MEQ/L Chloride Level 109 MEQ/L Carbon Dioxide Level 20.9 MEQ/L Anion Gap 9 MEQ/L Estimat Glomerular Filtration Rate 142 ML/MIN Medical Decision Making Impression and Plan Impression: 1. Large right frontal meningioma, not present on previous MRI from 2014. Relatively stable right parietal meningioma Recommendations: Findings were discussed with the patient and her mother Treatment options discussed. They wish to proceed with surgical intervention which will be scheduled on an elective basis. She appears neurologically stable at this time. Signs and symptoms to watch for mental discussed. She will be discharged on a low-dose Decadron 2 mg by mouth twice a day since she does have a history of GERD, takes Zantac. Guanaco Leonard MD Mar 24, 2017 13:15
[2017-03-24] MEDS ORDERED: DEXA2TAB PO (13:21)
--- NOTE | 2017-03-24 13:23 | HHI.DCPOC ---
Discharge Care Plan Diagnosis: (1) Meningioma Your Health Problems Are: Difficulty with ADL Exercise Tolerance Difficulty with Speech Additional Problems GERD. Maybe aggravated by oral steroids Goals to Promote Your Health * To prevent worsening of your condition and complications * To maintain your health at the optimal level Directions to Meet Your Goals Take your medications as prescribed Follow your dietary instruction Follow activity as directed Keep your appointments as scheduled Take your immunizations and boosters as scheduled If your symptoms worsen call your PCP, if no PCP go to Urgent Care Center or Emergency Room Smoking is Dangerous to Your Health. Avoid second hand smoke Call the 24-hour hour crisis hotline for domestic abuse at Guanaco Leonard MD Mar 24, 2017 13:23
--- NOTE | 2017-03-24 13:28 | HHI.DS ---
Discharge Summary Admission Date Mar 23, 2017 at 01:06 Discharge Date: Mar 24, 2017 Admitting Diagnosis AMS, Cerebral EDEMA, Intracranial mass vs infarct (1) Cerebral edema Diagnosis: Secondary ICD Code: G93.6 - Cerebral edema Status: Chronic (2) Meningioma Diagnosis: Principal ICD Code: D32.9 - Benign neoplasm of meninges, unspecified Status: Chronic CBC/BMP: 03/24/17 0533 03/24/17 0533 Significant Findings Laboratory Tests Test 03/22/17 21:04 03/22/17 22:25 03/23/17 04:30 03/24/17 05:33 Troponin I LESS THAN 0.02 NG/ML Urine Bacteria RARE /hpf (NONE) Urine Yeast (Budding) OCC (NONE) Red Blood Count 3.95 MIL/MM3 (4.00-5.30) Hematocrit 34.9 % (35.0-46.0) Neutrophils (%) (Auto) 89.0 % (16.0-70.0) Neutrophils # (Auto) 8.3 TH/MM3 (1.8-7.7) Lymphocytes # (Auto) 0.9 TH/MM3 (1.0-4.8) Creatinine 0.47 MG/DL (0.50-1.00) Random Glucose 136 MG/DL (74-106) Chloride Level 109 MEQ/L (98-107) Carbon Dioxide Level 20.9 MEQ/L (21.0-32.0) Imaging Last Impressions Head/Brain Mag Res Venography 03/24/17 0000 Signed Impressions: Service Date/Time: Friday, March 24, 2017 11:13 - CONCLUSION: Brain MRV within normal limits. Martin Grove MD Head Magnetic Resonance Angiography 03/24/17 0000 Signed Impressions: Service Date/Time: Friday, March 24, 2017 11:13 - CONCLUSION: Brain MRA within normal limits. Martin Grove MD Skull X-Ray 03/23/17 0000 Signed Impressions: Service Date/Time: Thursday, March 23, 2017 15:00 - CONCLUSION: EYEGLASS CUTTER shunt catheter as above. The valve settings are indeterminate. Davin Rushing MD Brain MRI 03/23/17 0000 Signed Impressions: Service Date/Time: Thursday, March 23, 2017 16:32 - CONCLUSION: 1. Multiple avidly enhancing extra-axial dural based masses in the right frontal region. The dominant mass in the right frontal region demonstrates extension across the falx in the left frontal region. There is significant mass effect and vasogenic edema. Dural enhancement is identified. I believe there is also some intraparenchymal involvement. 2. The findings would be most concerning for malignant spread of lymphoma/leukemia given the clinical history. The focus of decreased T2 signal and blooming artifact in the right bjorn may represent a remote insult/bleed or cavernoma. Davin Rushing MD Head CT 03/22/17 0000 Signed Impressions: Service Date/Time: Wednesday, March 22, 2017 23:02 - CONCLUSION: Abnormal appearance to the right frontal lobe with cerebral edema, effacement of the right lateral ventricle, and midline shift towards the left. Differential considerations include infarct and tumor. Recommend further characterization with MRI with and without contrast. Larry Muller MD Hospital Course Patient admitted through the emergency room due to mental status changes increased gait difficulty, dizziness, headache. Imaging studies reveals a new large right frontal meningioma with a relatively stable possible mildly increased right parietal convexity meningioma. Findings were discussed with the patient and her mother. They have elected to proceed with surgical intervention. She will be discharged over the holiday and surgery performed on elected basis in the near future. Pt Condition on Discharge: Stable Discharge Disposition: Discharge Home Discharge Instructions DIET: Follow Instructions for: As Tolerated, No Restrictions ACTIVITIES You can perform: Weight Bearing As Esteban Activities to Avoid: Lifting/Bending, Strenuous Activity New Medications: Dexamethasone (Dexamethasone) 2 Mg Tab 2 MG PO BID for Control Inflammation, #30 TAB 0 Refills Continued Medications: Meclizine (Meclizine) 12.5 Mg Tab 12.5 MG PO DIRECTED PRN for VERTIGO, TAB 0 Refills Discontinued Medications: Ibuprofen (Ibuprofen) 800 Mg Tab 800 MG PO Q8H PRN for PAIN 1 TO 10 AND/OR AGITATION, TAB 0 Refills Simvastatin (Simvastatin) 10 Mg Tab 10 MG PO DAILY for Cholesterol Management, #30 TAB 0 Refills Guanaco Leonard MD Mar 24, 2017 13:28
[2017-03-24] MEDS ORDERED: MELATONIN 5 MG TAB PO SCH (21:00)
== END 2017-03-24 14:01 | disposition home or self-care (01) | DRG 54 ==
LOC: NEPD 19:00 → NEDA 03-23 01:06 → N03A 03-23 02:38
PROVIDERS: ADMIT Emergency Medicine; ATTEND Emergency Medicine
DX: D32.0 Benign neoplasm of cerebral meninges (principal); G93.6 Cerebral edema; G91.9 Hydrocephalus, unspecified; E78.5 Hyperlipidemia, unspecified; Z85.6 Personal history of leukemia; R27.0 Ataxia, unspecified; Z98.2 Presence of cerebrospinal fluid drainage device; Z92.3 Personal history of irradiation; Z86.011 Personal history of benign neoplasm of the brain; E66.9 Obesity, unspecified; Z68.33 Body mass index [BMI] 33.0-33.9, adult; Z80.49 Family history of malignant neoplasm of other genital organs; K21.9 Gastro-esophageal reflux disease without esophagitis
CPT/HCPCS: 70250; 70450; 70544; 70546; 70553; 80048; 80053; 81001; 82550; 84484; 85025; 85610; 85730; 87086; 87641; 93005; 96360; A9579; J1100; J7030

== ENCOUNTER 2017-04-18 06:23 | Inpatient (IN) | payer MEDICAID ==
[~2017-04-18] VITALS: Ht 147.3 cm; Wt 72.0 kg
[~2017-04-18 06:23] MED LIST changes: +DEXA2TAB PO; +MECL12.574 PO; -MOBI7.5T PO
[2017-04-18] MEDS ORDERED: PROPOFOL 500 MG/50 ML INJ 100 ML ONE (06:39)
[2017-04-18] MEDS ORDERED: ceFAZolin 1,000 MG/NS 100 ML IV SCH ×2 (07:15)
[2017-04-18] MEDS ORDERED: CHLORHEXIDINE GLUCONATE 2 % 1 PACK (2 CLOTHS) TOPICAL PRN (07:15)
[2017-04-18] MEDS ORDERED: LACTATED RINGER'S 1000 ML IV PRN (07:15)
[2017-04-18] MEDS ORDERED: METOPROLOL TARTRATE 25 MG TAB PO PRN (07:15)
[2017-04-18] MEDS ORDERED: SODIUM CHLORID 0.9% 500 ML IV PRN (07:15)
[2017-04-18] MEDS ORDERED: POVIDONE IODINE 5% (ANTISEPSIS KIT) 4 APPLICATIONS EACH NARE PRN (07:15)
[2017-04-18] MEDS ORDERED: LACTATED RINGER'S 1000 ML INJ 1,000 ML IV SCH (07:15)
[2017-04-18] MEDS ORDERED: GELFOAM SIZE 100 ONE (07:31)
[2017-04-18] MEDS ORDERED: LIDOCAINE 1%/EPINEPHrine 1:100,000 SOLN 50 ML VIAL ONE (07:31)
[2017-04-18] MEDS ORDERED: THROMBIN (TOPICAL) 5,000 UNIT VIAL ONE ×2 (07:31→11:05)
[2017-04-18] MEDS ORDERED: GENTAMICIN SULFATE 80 MG/2 ML VIAL ONE (07:34)
[2017-04-18] MEDS ORDERED: MANNITOL INJ 100 ML ONE (08:30)
[2017-04-18] MEDS ORDERED: ARTIFICIAL TEARS OPTH OINT 3.5 APPLIC/3.5 GM TUBO ONE (09:22)
[2017-04-18] MEDS ORDERED: ceFAZolin INJ 1,000 MG VIAL IV ONE ×2 (09:36→12:00)
[2017-04-18] MEDS ORDERED: PHENYLEPHRINE HCL 10 MG/ML VIAL IV ONE (12:00)
[2017-04-18] MEDS ORDERED: VECURONIUM BROMIDE 20 MG VIAL IV ONE (12:00)
[2017-04-18] MEDS ORDERED: DEXAMETHASONE SOD PHOS 4 MG/ML VIAL IV ONE (12:00)
[2017-04-18] MEDS ORDERED: SODIUM CHLORID 0.9% 500 ML INJ 500 ML IV ONE (12:00)
[2017-04-18] MEDS ORDERED: PHENYLEPH/NS 1000 MCG/10 ML SYR IV ONE (12:00)
[2017-04-18] MEDS ORDERED: LIDOCAINE HCL 1% PF 5 ML SYRINGE OTHER ONE (12:00)
[2017-04-18] MEDS ORDERED: NORMOSOL R INJ 2,000 ML IV ONE (12:00)
[2017-04-18] MEDS ORDERED: ePHEDrine/NS 25 MG/5 ML SYRINGE IV ONE (12:00)
[2017-04-18] MEDS ORDERED: LACTATED RINGER'S 1000 ML INJ 1,000 ML IV ONE (12:00)
[2017-04-18] MEDS ORDERED: ONDANSETRON HCL 4 MG/2 ML VIAL IV PUSH ONE (12:00)
[2017-04-18] MEDS ORDERED: MIDAZOLAM HCL 2 MG/2 ML VIAL IV ONE (12:00)
[2017-04-18] MEDS ORDERED: ROCURONIUM INJ 50 MG/5 ML SYRINGE IV PUSH ONE (12:00)
[2017-04-18] MEDS ORDERED: SODIUM CHLOR 0.9% 250 ML INJ 250 ML IV ONE (12:00)
[2017-04-18] MEDS ORDERED: PROPOFOL 200 MG/20 ML AMP IV ONE (12:00)
[2017-04-18] MEDS ORDERED: levETIRAcetam 500 MG/5 ML VIAL IV ONE (12:02)
[2017-04-18] MEDS ORDERED: SUGAMMADEX SODIUM 200 MG/2 ML VIAL IV PUSH ONE ×2 (13:15→13:18)
[2017-04-18] MEDS ORDERED: NALOXONE HCL 0.4 MG/ML AMP IV PUSH PRN (13:37)
[2017-04-18] MEDS ORDERED: DO NOT ADM ANY ANTICOAGULANT DRUGS PRN (13:40)
[2017-04-18] MEDS ORDERED: MECLIZINE HCL 25 MG TAB PO PRN (13:45)
[2017-04-18] MEDS ORDERED: ONDANSETRON HCL 4 MG/2 ML VIAL IV PUSH PRN (13:45)
--- NOTE | 2017-04-18 14:03 | PD.OP ---
Operative Report Date of Surgery: Apr 18, 2017 Preoperative Diagnosis: (1) Meningioma Right frontal meningioma Right parietal meningioma Postoperative Diagnosis: (1) Meningioma Right frontal meningioma Right parietal meningioma Procedure: 1. Right frontoparietal craniotomy for resection of right frontal and right parietal meningiomas 2. Right frontoparietal dural reconstruction with Durepair patch graft 3. Use of intraoperative frameless stereotactic navigation for scalp and bone flap planning and assist for tumor resection. Anesthesia: General Surgeon: Guanaco Leonard Solution Analyst(s): Laura Rodríguez Operation and Findings: Findings: Large right frontal and moderate right parietal neoplasm. Right frontal lesion immediately adjacent to the falx. Procedure in detail: The patient was brought into the operating room and general endotracheal anesthesia induced without difficulty. Lines were established by anesthesia CAROLANN hose and sequential compression devices were in place Carlos catheter was in place Appropriate timeout procedure was performed with all personal present and in agreement The patient was positioned in supine position with all extremities appropriately padded. The head was placed in the 3-point fixation device and secured to the operating room table with the neck slightly flexed . The BrainLab system was registered with the laser facial registration system and landmarks verified. The BrainLab system was used to kamar the initial scalp flap and craniotomy opening, and was further used extensively during the procedure to guide the resection of the neoplasm. The hair overlying the scalp incision was shaved with clippers, and the operative site was sterilely prepped and draped. 1% Xylocaine with epinephrine was used for local infiltration over the incision site which was made in a curvilinear fashion over the right frontoparietal region and carried sharply down to the cranium. The anterior half of the incision was made over a previous right frontal parietal incision site. The scalp flap was elevated with the periosteal elevator and retracted with large scalp hooks. The existing ventricular shunt catheter was freed up from the surrounding tissue and sharply incised between the exit point from the cranium and the valve. The ventricular and was temporarily secured as needed with a rubber-shod hemostat. The water resources technical officer was used to place a bur hole at the right posterior parietal region adjacent to the midline, and the craniotome was used to incise the bone flap. 4-0 Nurolon dural tack up sutures placed through wire passing holes made along the edge of the craniotomy site were used as needed. There was significant involvement of the dura in the frontal and parietal region by neoplasm and it was elected to resect the dura in the right frontal parietal region along with the neoplasm. Draining veins were carefully preserved, particularly as they entered the sagittal sinus. There was no significant brain edema noted upon opening the dura. Patient was given Decadron during the procedure. The neoplasm was relatively soft with a good demarcation between the neoplasm and the surrounding brain tissue at both the frontal and parietal neoplasm sites. The neoplasm was circumferentially from the surrounding tissue with the [place] dissectors and the bipolar forceps with any bridging vessels coagulated with the bipolar forceps and incised with the micro-scissors. Any major vascular structures were carefully preserved. Cottonoid patties were used as needed to maintain the resection plane surrounding the tumor. Once the periphery of the tumor was delineated, the central portion was gradually debulked using the tissue biopsy forceps and the suction with bleeding controlled with bipolar forceps. The periphery of the tumor was then removed. A gross total resection of the lesion was achieved at both the right frontal and right parietal neoplasm locations. The tumor resection site was carefully examined and bleeding carefully controlled. There was no significant bleeding at the time of closure. The brain was soft and pulsatile at the time of closure A piece of Durepair was cut to the appropriate dimensions and sutured to the residual dural border and in some areas to the cranium through wire passing drill holes with 4-0 Nurolon suture. The proximal ventricular shunt tubing was brought out through a small incision in the dural graft and through the pre-existing bur hole in the bone flap and reapproximated to the distal peritoneal catheter with a in-line connector secured with 2-0 silk suture. Titanium maxillofacial plates and screws were used to secure the bone flap, 2-0 and 30 Vicryl was used for the galeal closure. [place] for the skin closure. A dressing of sterile Telfa, 4 x 4's, and a head stockinette were placed. The 3-point head fixation device was removed The patient was taken to recovery room in stable condition All counts were correct at the end of the case Estimated blood loss was 400 cc. Specimen of the neoplasm was sent to pathology for permanent section Guanaco Leonard MD Apr 18, 2017 14:03
[2017-04-18 14:57] LABS: EOSINOPHIL % 0.1 % (0.0-4.0); HEMATOCRIT 29.2 % (35.0-46.0); LYMPH % 9.7 % (9.0-44.0); LYMPHOCYTE # 1.1 TH/MM3 (1.0-4.8); MEAN CELL VOLUME 91.7 FL (80.0-100.0); MEAN CORPUSCULAR HEMOGLOBIN 31.2 PG (27.0-34.0); MEAN PLATELET VOLUME 6.9 FL (7.0-11.0); MONO % 5.8 % (0.0-8.0); MONOCYTE # 0.7 TH/MM3 (0-0.9); NEUT % 84.4 % (16.0-70.0); PLATELET COUNT 159 TH/MM3 (150-450); RED BLOOD COUNT 3.19 MIL/MM3 (4.00-5.30); RED CELL DISTRIBUTION WIDTH 18.1 % (11.6-17.2); WHITE BLOOD COUNT 11.8 TH/MM3 (4.0-11.0)
[2017-04-18] MEDS: D5-1/2 NS + KCL 20 MEQ INJ 1,000 ML IV SCH (15:00)
[2017-04-18] MEDS ORDERED: *morphine SULFATE 8 MG/ML PERIprocedure ONLY ONE (15:02)
[2017-04-18] MEDS ORDERED: PHENYLEPH/NS 1000 MCG/10 ML SYR ONE (15:11)
[2017-04-18 15:18] LABS: BICARBONATE 25.9 MEQ/L (21.0-32.0); CALCIUM 7.6 MG/DL (8.5-10.1); CREATININE 0.54 MG/DL (0.50-1.00)
[2017-04-18] MEDS: ACETAMINOPHEN/HYDROcodone 325 MG/10 MG TAB PO PRN (16:14)
[2017-04-18] MEDS: traMADol HCL 50 MG TAB PO PRN (17:44)
[2017-04-18 20:00] VITALS: BP 80/44; PULSE 78; RESP 20; TEMP 98.1; O2SAT 96
[2017-04-18] MEDS: MORPHINE SULFATE 2 MG/ML INJ IV PUSH PRN (20:50)
[2017-04-18] MEDS: DOCUSATE SODIUM 100 MG CAP PO SCH (20:50)
[2017-04-18] MEDS: DEXAMETHASONE 4 MG TAB PO SCH (20:50)
[2017-04-18] MEDS: FAMOTIDINE 20 MG TAB PO SCH (20:50)
[2017-04-18 22:00] VITALS: PULSE 75
[2017-04-19] VITALS (12 sets, daily range): BP systolic 79–114; BP diastolic 44–63; PULSE 64–95; RESP 14–20; TEMP 97.9–99.1; O2SAT 92–100
[2017-04-19] MEDS: D5-1/2 NS + KCL 20 MEQ INJ 1,000 ML IV SCH ×3 (00:50→19:37)
--- NOTE | 2017-04-19 04:58 | RADRPT ---
EXAM DATE/TIME: 04/19/2017 04:36 [place] COMPARISON: CT BRAIN W/O CONTRAST, March 22, 2017, 23:02. INDICATIONS : Post operative craniotomy. RADIATION DOSE: 26.39 CTDIvol (mGy) MEDICAL HISTORY : Non-responsive. SURGICAL HISTORY : Non-responsive. ENCOUNTER: Initial ACUITY: 3 days PAIN SCALE: Non-responsive LOCATION: cranial TECHNIQUE: Multiple contiguous axial images were obtained of the head. Using automated exposure control and adj ustment of the mA and/or kV according to patient size, radiation dose was kept as low as reasonably a chievable to obtain optimal diagnostic quality images. DICOM format image data is available electro nically for review and comparison. FINDINGS: Postsurgical findings are now seen in the frontal region. Left frontal skull defect is noted. Right f rontal skull postsurgical changes also noted. Gas and hemorrhagic products are seen centered in the p aramidline frontal region. Mass effect on the adjacent frontal lobes noted with up to 7 mm right to l eft midline shift focally. Vasogenic edema noted in the right frontal lobe. Small hyperdensity in the posterior right midbrain is again seen and unchanged. Right frontal ventriculostomy catheter remains in place with the tip in the region of the foramen of [place]. Ventricles within normal limits in siz e. CONCLUSION: 1. Postsurgical findings with hemorrhagic products and mass effect centered at the midline frontal re gion. 2. Ventriculostomy catheter remains in place. Martin Groev MD on April 19, 2017 at 4:49 Board Certified Radiologist. This report was verified electronically.
[2017-04-19] MEDS: ACETAMINOPHEN/HYDROcodone 325 MG/10 MG TAB PO PRN ×3 (07:48→19:48)
[2017-04-19] MEDS: levETIRAcetam 500 MG TAB PO SCH ×2 (07:48→19:48)
[2017-04-19] MEDS: DEXAMETHASONE 4 MG TAB PO SCH ×2 (07:48→19:49)
[2017-04-19] MEDS: FAMOTIDINE 20 MG TAB PO SCH ×2 (07:48→19:48)
[2017-04-19] MEDS: DOCUSATE SODIUM 100 MG CAP PO SCH ×2 (07:48→19:48)
--- NOTE | 2017-04-19 09:20 | HHI.NSPN ---
(Dario Mathis) History Chief Complaint: Throbbing headache. (Dario Mathis) Interval History 04/18: The patient presented for a right frontoparietal craniotomy for resection of right frontal and right parietal meningiomas. Post-operatively she was admitted to the [facility] unit for further care and monitoring. 04/19: This morning the patient is awake and alert when seen. She is picking at her breakfast tray. She states that she does have a throbbing headache but has no other complaints. Her mother does report that the patient has some confusion and appears weaker on the left more than normal. Nursing reports increased urine output and a urine specific gravity of 1.004. (Dario Mathis) System Review Comments MUSCULOSKELETAL: Mother reports some increased left-sided weakness. NEUROLOGICAL: Throbbing headache. Mother does report some confusion. (Dario Mathis) Exam Results 04/17/17 04/17/17 04/18/17 04/18/17 04/19/17 04/19/17 06:00 18:00 06:00 18:00 06:00 18:00 Intake Total 2580 ml 2881 ml Output Total 2200 ml 3650 ml Balance 380 ml -769 ml Intake Oral 480 ml 540 ml IV Total 2100 ml 2341 ml Output Urine Total 1800 ml 3650 ml Estimated Blood Loss 400 ml # Bowel Movements 0 Vital Signs Date Time Temp Pulse Resp B/P (MAP) Pulse Ox O2 Delivery O2 Flow Rate FiO2 04/19/17 08:00 82 04/19/17 08:00 96 Room Air 04/19/17 08:00 99.1 82 20 79/55 (63) 98 Arterial Line 04/19/17 06:00 68 04/19/17 04:04 100 Nasal Cannula 2.00 04/19/17 04:00 66 04/19/17 04:00 98.3 66 14 80/45 (57) 98 04/19/17 02:00 64 04/19/17 01:00 90 Nasal Cannula 2.00 04/19/17 00:00 74 04/19/17 00:00 97.9 74 16 83/44 (57) 92 04/18/17 22:00 75 04/18/17 20:00 96 Room Air 04/18/17 20:00 78 04/18/17 20:00 98.1 78 20 80/44 (56) 96 04/18/17 18:44 16 04/18/17 17:44 16 04/18/17 16:00 84 18 94/52 (66) 99 Nasal Cannula 2 04/18/17 15:45 98.2 92 16 90/52 (65) 98 Nasal Cannula 2 04/18/17 15:30 90 17 92/51 (65) 98 Nasal Cannula 2 04/18/17 15:15 91 16 92/52 (65) 98 Nasal Cannula 2 04/18/17 15:00 106 16 88/48 (61) 99 Nasal Cannula 2 04/18/17 14:45 106 15 89/55 (66) 97 Nasal Cannula 2 04/18/17 14:30 107 18 92/52 (65) 100 Nasal Cannula 2 113/56 (75) 04/18/17 14:15 109 16 95/54 (68) 98 Nasal Cannula 2 118/66 (83) 04/18/17 14:00 111 18 95/53 (67) 99 Nasal Cannula 2 122/64 (83) 04/18/17 13:45 114 15 104/53 (70) 99 Nasal Cannula 2 117/58 (77) 04/18/17 13:40 98.6 115 16 104/50 (68) 100 Nasal Cannula 2 04/18/17 07:20 98.0 64 18 113/55 (74) 96 (Dario Mathis) Physical Examination GENERAL: Awake & alert, picking at her food, interacts but is fixated on her breakfast tray, affect flat, no apparent distress. HEENT: Normocephalic, intact dressing to frontal surgical incision. PERRLA, EOMI , slight ecchymosis to lower eyelid. MMM & pink, tongue midline to protrusion. MUSCULOSKELETAL: RIZO, no evident deformity or clubbin. NEUROLOGICAL: AA&O x3. Speech clear & appropriate although slow. Follows simple commands w/o difficulty. CN II-XII appear grossly intact. Sensation intact to light touch to all extremities. Motor strength is 4+ to 5/5 to all major flexion & extension muscle groups on the right side. Motor strength on the left is the deltoid 3+/5, bicep 3/5, tricep 4/5 hand money laundering investigator 3+/5, iliopsoas 4/5, quadriceps 0/5, hamstrings 3/5, tibialis anterior 3/5, gastrocnemius 3+5 and extensor hallucis longus 3/5. (Dario Mathis) Lab, Micro, Other Results Recent Impressions Head CT 04/19/17 0600 Signed Impressions: Service Date/Time: Wednesday, April 19, 2017 04:36 - CONCLUSION: 1. Postsurgical findings with hemorrhagic products and mass effect centered at the midline frontal region. 2. Ventriculostomy catheter remains in place. Martin Grove MD Laboratory Tests Test 04/18/17 14:44 04/19/17 06:10 White Blood Count 11.8 TH/MM3 Red Blood Count 3.19 MIL/MM3 Hemoglobin 10.0 GM/DL Hematocrit 29.2 % Mean Corpuscular Volume 91.7 FL Mean Corpuscular Hemoglobin 31.2 PG Mean Corpuscular Hemoglobin Concent 34.0 % Red Cell Distribution Width 18.1 % Platelet Count 159 TH/MM3 Mean Platelet Volume 6.9 FL Neutrophils (%) (Auto) 84.4 % Lymphocytes (%) (Auto) 9.7 % Monocytes (%) (Auto) 5.8 % Eosinophils (%) (Auto) 0.1 % Basophils (%) (Auto) 0.0 % Neutrophils # (Auto) 10.0 TH/MM3 Lymphocytes # (Auto) 1.1 TH/MM3 Monocytes # (Auto) 0.7 TH/MM3 Eosinophils # (Auto) 0.0 TH/MM3 Basophils # (Auto) 0.0 TH/MM3 CBC Comment DIFF FINAL Differential Comment Blood Urea Nitrogen 10 MG/DL Creatinine 0.54 MG/DL Random Glucose 90 MG/DL Calcium Level 7.6 MG/DL Sodium Level 138 MEQ/L Potassium Level 3.8 MEQ/L Chloride Level 102 MEQ/L Carbon Dioxide Level 25.9 MEQ/L Anion Gap 10 MEQ/L Estimat Glomerular Filtration Rate 121 ML/MIN Urine Specific [place] 1.004 (Dario Mathis) Medical Decision Making Impression and Plan Impression: Right frontal meningioma Right parietal meningioma The patient is doing fairly well post-operatively. She is oriented but does appear to fixate. There is increased left-sided weakness. Reviewed labs & CT brain for today. Mild leukocytosis which is most likely reactionary due to surgery. Sodium is 138. Urine specific gravity is 1.004. CT brain today demonstrates post-operative changes with haemorrhagic products and mass effect centered to the midline frontal region with an intact ventriculostomy catheter. POD #1 () s/p: 1. Right frontoparietal craniotomy for resection of right frontal and right parietal meningiomas 2. Right frontoparietal dural reconstruction with Durepair patch graft 3. Use of intraoperative frameless stereotactic navigation for scalp and bone flap planning and assist for tumor resection. Postoperative Diagnosis: (1) Meningioma Right frontal meningioma Right parietal meningioma Plan: Frequent neuro checks. Stat CT brain for any worsening neuro status. Monitor urine output. Follow sodium level. Mobilise patient w/assistance. PT/OT eval & tx. Mechanical DVT prophylaxis. Hold pharmacological DVT prophylaxis. Advance diet as tolerated. Will d/c IVF when taking adequate PO fluids. (Dario Mathis) Attending Statement The exam, history, and the medical decision-making described in the above note were completed with the assistance of the mid-level provider. I reviewed and agree with the findings presented. I attest that I had a [id number] encounter with the patient on the same day, and personally performed and documented my assessment and findings in the medical record. Postoperative examination of 04/19/2017 as noted above. Patient with mostly 3/5 left upper and lower extremity strength. Hesitant speech. Mild lethargy. Postoperative CT satisfactory Begin physical therapy, speech therapy. Non-chemical DVT prophylaxis initially (Guanaco Leonard MD) Dario Mathis Apr 19, 2017 09:20 Guanaco Leonard MD Apr 24, 2017 00:17
[2017-04-19 13:30] LABS: AUTOMATED NEUTROPHIL # 7.5 TH/MM3 (1.8-7.7); BASOPHIL % 0.1 % (0.0-2.0); EOSINOPHIL % 0.1 % (0.0-4.0); HEMATOCRIT 28.5 % (35.0-46.0); HEMOGLOBIN 9.6 GM/DL (11.6-15.3); LYMPH % 7.2 % (9.0-44.0); LYMPHOCYTE # 0.6 TH/MM3 (1.0-4.8); MEAN CELL VOLUME 93.1 FL (80.0-100.0); MEAN CORPUSCULAR HEMOGLOBIN 31.2 PG (27.0-34.0); MEAN CORPUSCULAR HGB CONC 33.5 % (32.0-36.0); MEAN PLATELET VOLUME 7.5 FL (7.0-11.0); MONO % 8.2 % (0.0-8.0); MONOCYTE # 0.7 TH/MM3 (0-0.9); NEUT % 84.4 % (16.0-70.0); PLATELET COUNT 150 TH/MM3 (150-450); RED BLOOD COUNT 3.06 MIL/MM3 (4.00-5.30); RED CELL DISTRIBUTION WIDTH 17.9 % (11.6-17.2); WHITE BLOOD COUNT 8.8 TH/MM3 (4.0-11.0)
[2017-04-19] MEDS: traMADol HCL 50 MG TAB PO PRN (13:35)
[2017-04-19 13:57] LABS: BICARBONATE 26.4 MEQ/L (21.0-32.0); CALCIUM 8.4 MG/DL (8.5-10.1); CREATININE 0.41 MG/DL (0.50-1.00)
[2017-04-19] MEDS: MORPHINE SULFATE 2 MG/ML INJ IV PUSH PRN (14:33)
[2017-04-19 16:27] LABS: INTERNATIONAL NORMALIZED RATIO 1.1 RATIO; PROTHROMBIN TIME - PATIENT 10.7 SEC (9.8-11.6)
[2017-04-20] VITALS (11 sets, daily range): BP systolic 88–115; BP diastolic 52–75; PULSE 72–98; RESP 15–25; TEMP 98.2–98.8; O2SAT 92–99
[2017-04-20] MEDS: ACETAMINOPHEN/HYDROcodone 325 MG/10 MG TAB PO PRN ×2 (05:05→15:32)
[2017-04-20] MEDS: DOCUSATE SODIUM 100 MG CAP PO SCH ×2 (09:00→21:00)
[2017-04-20] MEDS: levETIRAcetam 500 MG TAB PO SCH ×2 (09:00→21:14)
[2017-04-20] MEDS: DEXAMETHASONE 4 MG TAB PO SCH ×2 (09:00→21:14)
[2017-04-20] MEDS: FAMOTIDINE 20 MG TAB PO SCH ×2 (09:00→21:14)
[2017-04-20] MEDS: traMADol HCL 50 MG TAB PO PRN (11:25)
[2017-04-21] VITALS (8 sets, daily range): BP systolic 104–112; BP diastolic 58–68; PULSE 66–84; RESP 15–20; TEMP 97.5–98.6; O2SAT 92–100
[2017-04-21] MEDS: ACETAMINOPHEN/HYDROcodone 325 MG/10 MG TAB PO PRN ×3 (03:13→21:53)
[2017-04-21] MEDS: DOCUSATE SODIUM 100 MG CAP PO SCH ×2 (08:14→21:56)
[2017-04-21] MEDS: levETIRAcetam 500 MG TAB PO SCH ×2 (08:14→21:56)
[2017-04-21] MEDS: FAMOTIDINE 20 MG TAB PO SCH ×2 (08:14→21:56)
[2017-04-21] MEDS: DEXAMETHASONE 4 MG TAB PO SCH ×2 (08:14→21:56)
[2017-04-21] MEDS: traMADol HCL 50 MG TAB PO PRN (10:40)
--- NOTE | 2017-04-21 12:20 | HHI.NSPN ---
History Chief Complaint: craniotomy Interval History No new complaints Sitting in chair System Review Comments no change Exam Results Vital Signs Date Time Temp Pulse Resp B/P (MAP) Pulse Ox O2 Delivery O2 Flow Rate FiO2 04/21/17 08:07 96 21 04/21/17 07:00 Room Air 04/21/17 06:00 66 04/21/17 04:00 98.6 20 104/58 (73) 04/19/17 04:04 2.00 Intake and Output 04/21/17 04/21/17 04/22/17 08:00 16:00 00:00 Intake Total 1120 ml Output Total 900 ml Balance 220 ml Physical Examination Sitting in chair Slow to respond Follows commands Moves all extremities Weaker on the left Wound is clean Medical Decision Making Impression and Plan Imp; Stable P: Move to floor Will need PT/OT Total Minutes: 15 Randall Smyth MD Apr 21, 2017 12:20
[2017-04-22] VITALS (8 sets, daily range): BP systolic 98–129; BP diastolic 51–76; PULSE 65–87; RESP 18–20; TEMP 98–98.8; O2SAT 95–98
[2017-04-22] MEDS: levETIRAcetam 500 MG TAB PO SCH ×2 (10:03→20:37)
[2017-04-22] MEDS: DOCUSATE SODIUM 100 MG CAP PO SCH ×2 (10:03→20:36)
[2017-04-22] MEDS: DEXAMETHASONE 4 MG TAB PO SCH ×2 (10:03→20:37)
[2017-04-22] MEDS: FAMOTIDINE 20 MG TAB PO SCH ×2 (10:03→20:37)
--- NOTE | 2017-04-22 16:42 | HHI.NSPN ---
(Dario Mathis) History Chief Complaint: Headache (Dario Mathis) Interval History 04/18: The patient presented for a right frontoparietal craniotomy for resection of right frontal and right parietal meningiomas. Post-operatively she was admitted to the [facility] unit for further care and monitoring. 04/19: This morning the patient is awake and alert when seen. She is picking at her breakfast tray. She states that she does have a throbbing headache but has no other complaints. Her mother does report that the patient has some confusion and appears weaker on the left more than normal. Nursing reports increased urine output and a urine specific gravity of 1.004. 04/21: No new complaints Sitting in chair 04/22: When seen this afternoon the patient is asleep but awakens to voice. She does say she has a headache and pain to the surgical site. Her mother states that the patient has refused to use the left upper extremity so yesterday the mother refused to open things for her and let the patient come up with her own way of opening them. Her mother does report that the patient did reach over with her left upper this morning and grabbed the rail with her left hand to help turn herself. The patient was doing well in [facility] and was therefore transferred to a regular med/surg floor yesterday. Nursing reports that the patient does not have any IV access and that six attempts were made without success. (Dario Mathis) System Review Comments HEENT: Pain to the surgical incision. NEUROLOGICAL: Headache. (Dario Mathis) Exam Results 04/20/17 04/20/17 04/21/17 04/21/17 04/22/17 04/22/17 06:00 18:00 06:00 18:00 06:00 18:00 Intake Total 960 ml 2400 ml 1120 ml 1375 ml Output Total 2700 ml 2650 ml 900 ml Balance -1740 ml -250 ml 220 ml 1375 ml Intake Oral 960 ml 2400 ml 1120 ml 1375 ml Output Urine Total 2700 ml 2650 ml 900 ml # Voids 6 1 # Bowel Movements 0 0 0 0 1 Vital Signs Date Time Temp Pulse Resp B/P (MAP) Pulse Ox O2 Delivery O2 Flow Rate FiO2 04/22/17 12:32 98.2 84 20 106/55 (72) 96 04/22/17 12:31 98 21 04/22/17 08:11 98.3 65 20 112/56 (74) 98 04/22/17 05:00 98.1 69 18 120/69 (86) 97 04/22/17 00:40 98.5 82 18 129/76 (93) 97 04/21/17 16:00 98.4 72 18 110/63 (79) 98 04/21/17 12:00 84 04/21/17 12:00 98.0 84 18 106/68 (81) 96 04/21/17 08:07 96 21 04/21/17 08:00 81 04/21/17 08:00 97.5 81 15 112/62 (79) 100 04/21/17 07:00 95 Room Air 04/21/17 06:00 66 04/21/17 04:00 70 04/21/17 04:00 98.6 70 20 104/58 (73) 92 04/21/17 02:00 70 04/21/17 00:00 98.4 68 18 112/60 (77) 93 04/21/17 00:00 68 04/20/17 22:00 88 04/20/17 20:39 99 04/20/17 20:00 92 04/20/17 20:00 98.8 92 17 115/72 (86) 94 04/20/17 19:00 96 Room Air 04/20/17 16:32 19 04/20/17 16:00 87 04/20/17 16:00 98.5 87 19 111/62 (78) 93 04/20/17 12:25 19 04/20/17 12:00 98.2 98 19 103/75 (84) 95 04/20/17 12:00 98 04/20/17 09:59 97 21 04/20/17 08:00 98.2 76 16 88/52 (64) 95 04/20/17 08:00 76 04/20/17 08:00 95 Room Air 04/20/17 06:00 82 04/20/17 04:00 98.5 87 15 90/52 (65) 96 04/20/17 04:00 87 04/20/17 02:00 74 04/20/17 00:00 98.6 72 25 98/59 (72) 92 04/20/17 00:00 72 04/19/17 22:00 90 04/19/17 20:26 97 21 04/19/17 20:00 94 Room Air 04/19/17 20:00 95 04/19/17 20:00 98.4 84 17 104/53 (70) 94 (Dario Mathis) Physical Examination GENERAL: Asleep but awakens to voice, awake & interacts after that, affect flat , no apparent distress. HEENT: Normocephalic, well-approximated frontal surgical incision TTP w/jorge intact, no drainage, erythema or streaking noted. PERRLA, EOMI, slight ecchymosis to lower eyelid. MMM & pink, tongue midline to protrusion. MUSCULOSKELETAL: RIZO, no evident deformity or clubbing. NEUROLOGICAL: AA&O x3. Speech clear & appropriate although slow. Follows simple commands w/o difficulty. CN II-XII appear grossly intact. Sensation intact to light touch to all extremities. Motor strength is 4+ to 5/5 to all major flexion & extension muscle groups on the right side. Motor strength on the left is the deltoid 3/5, bicep 3/5, tricep 4/5 hand senior service technician 3 /5, iliopsoas 4/5, quadriceps 0/5, hamstrings 3/5, tibialis anterior 1/5, gastrocnemius 3/5 and extensor hallucis longus 3/5. (Dario Mathis) Medical Decision Making Impression and Plan Impression: Right frontal meningioma Right parietal meningioma The patient is doing good. The left-sided weakness persists o/w she is neurologically intact. CT brain demonstrates post-operative changes with haemorrhagic products and mass effect centered to the midline frontal region with an intact ventriculostomy catheter. Physical Therapy recommends inpatient rehab. POD #4 () s/p: 1. Right frontoparietal craniotomy for resection of right frontal and right parietal meningiomas 2. Right frontoparietal dural reconstruction with Durepair patch graft 3. Use of intraoperative frameless stereotactic navigation for scalp and bone flap planning and assist for tumor resection. Postoperative Diagnosis: (1) Meningioma Right frontal meningioma Right parietal meningioma Plan: Neuro checks. Stat CT brain for any worsening neuro status. Mobilise patient w/assistance. PT/OT eval & tx. Mechanical DVT prophylaxis. Hold pharmacological DVT prophylaxis. Diet as tolerated. Okay to have no heplock. (Dario Mathis) Attending Statement The exam, history, and the medical decision-making described in the above note were completed with the assistance of the mid-level provider. I reviewed and agree with the findings presented. I attest that I had a [id number] encounter with the patient on the same day, and personally performed and documented my assessment and findings in the medical record. On my examination today, 04/22/17, the patient is out of bed. She is awake and alert with relatively clear speech. She answers questions appropriately and follows simple commands well. She states that she has been able to ambulate to the bathroom with minimal assist. She is able to lift her left hand depth with moderate strength. Discussed findings with the patient. Anticipate discharge home on 04/23/17 (Guanaco Leonard MD) Dario Mathis Apr 22, 2017 16:42 Guanaco Leonard MD Apr 22, 2017 20:33
[2017-04-22] MEDS: ACETAMINOPHEN/HYDROcodone 325 MG/10 MG TAB PO PRN (20:39)
[2017-04-23 00:30] VITALS: BP 94/54; PULSE 68; RESP 18; TEMP 97.6; O2SAT 95
--- NOTE | 2017-04-23 03:28 | RADRPT ---
EXAM DATE/TIME: 04/23/2017 02:49 [facility] COMPARISON: CT BRAIN W & W/O CONTRAST, January 24, 2016, 20:44. CT BRAIN W/O CONTRAST, April 19, 2017, 4:36 . INDICATIONS : Post operative craniotomy. RADIATION DOSE: 26.99 CTDIvol (mGy) MEDICAL HISTORY : Brain tumor. SURGICAL HISTORY : Hysterectomy. Brain. ENCOUNTER: Initial ACUITY: 1 day PAIN SCALE: 6/10 LOCATION: Bilateral cranial TECHNIQUE: Multiple contiguous axial images were obtained of the head. Using automated exposure control and adj ustment of the mA and/or kV according to patient size, radiation dose was kept as low as reasonably a chievable to obtain optimal diagnostic quality images. DICOM format image data is available electro nically for review and comparison. FINDINGS: CEREBRUM: There is a ventriculostomy tube in place with a right frontal approach. There is hemorrhage, edema an d air seen in the right frontal lobe. Milder hemorrhage is seen in the medial left frontal lobe. Ther e is air in the left lateral ventricle. The right lateral ventricle is decompressed. It is slitlike. There is 8 mm of wdwaq-yx-ulir midline shift. The basal cisterns are open. There is a small focal are a of hemorrhage in the posterior right midbrain. There is a persistent low density subdural collectio n seen in the left frontal lobe measuring 3 mm. Air seen in the left subdural space. There also appea rs be some right subdural hemorrhage and fluid over the superior aspect of the right convexity. There is a small area of parenchymal hemorrhage in the right parietal lobe. POSTERIOR FOSSA: Again noted is the small hemorrhage in the posterior right midbrain. The cerebellum and brainstem are intact. The 4th ventricle is midline. The cerebellopontine angle is unremarkable. EXTRACRANIAL: The visualized portion of the orbits is intact. SKULL: The patient is status post bilateral craniotomy. CONCLUSION: 1. Persistent hemorrhage, edema, mass effect, and air in the right frontal lobe and to lesser degree anterior left medial frontal lobe. 2. All mild subdural collections. 3. Ventriculostomy tube in place with a right frontal approach with the tip seen in the right lateral ventricle which is slitlike. 4. 8 mm of xxkkb-od-otez midline shift. 5. Small focal hemorrhage in the posterior right midbrain. 6. The spines are all stable. Junior Sequeira MD on April 23, 2017 at 3:20 Board Certified Radiologist. This report was verified electronically.
[2017-04-23 05:00] VITALS: BP 92/51; PULSE 62; RESP 18; TEMP 98.4; O2SAT 95
[2017-04-23 08:19] VITALS: BP 112/53; PULSE 64; RESP 20; TEMP 98; O2SAT 95
[2017-04-23] MEDS: FAMOTIDINE 20 MG TAB PO SCH ×2 (08:26→21:31)
[2017-04-23] MEDS: levETIRAcetam 500 MG TAB PO SCH ×2 (08:26→21:31)
[2017-04-23] MEDS: DEXAMETHASONE 4 MG TAB PO SCH ×2 (08:26→21:31)
[2017-04-23] MEDS: DOCUSATE SODIUM 100 MG CAP PO SCH ×2 (08:26→21:32)
[2017-04-23] MEDS: ACETAMINOPHEN/HYDROcodone 325 MG/10 MG TAB PO PRN ×2 (08:27→18:42)
[2017-04-23 12:26] VITALS: BP 103/57; PULSE 95; RESP 20; TEMP 98.3; O2SAT 94
--- NOTE | 2017-04-23 15:51 | HHI.NSPN ---
(DelDario LUNA) History Chief Complaint: Throbbing headache. (Aquilino Mathisrikki LUNA) Interval History 04/18: The patient presented for a right frontoparietal craniotomy for resection of right frontal and right parietal meningiomas. Post-operatively she was admitted to the [facility] unit for further care and monitoring. 04/19: This morning the patient is awake and alert when seen. She is picking at her breakfast tray. She states that she does have a throbbing headache but has no other complaints. Her mother does report that the patient has some confusion and appears weaker on the left more than normal. Nursing reports increased urine output and a urine specific gravity of 1.004. 04/21: No new complaints Sitting in chair 04/22: When seen this afternoon the patient is asleep but awakens to voice. She does say she has a headache and pain to the surgical site. Her mother states that the patient has refused to use the left upper extremity so yesterday the mother refused to open things for her and let the patient come up with her own way of opening them. Her mother does report that the patient did reach over with her left upper this morning and grabbed the rail with her left hand to help turn herself. The patient was doing well in [facility] and was therefore transferred to a regular med/surg floor yesterday. Nursing reports that the patient does not have any IV access and that six attempts were made without success. 04/23: The patient is awake in bed when seen. She states that she does have a headache with some dizziness. She also has some pain to the surgical incision. Her mother states that the patient earlier today got up and ambulated to the walker on her own because she had to got to the bathroom because no one came in. She then got herself up to the chair for lunch. Her mother states that she is moving the left side extremities much better than yesterday.The mother did express home that the patient would not have to go to a prison facility but she then said that the daughter's home is cluttered and that there are cats in the home who get underfoot. (Dario Mathis) System Review Comments HEENT: Head hurts along surgical incision. NEUROLOGICAL: Throbbing headache. Some dizziness. Localised weakness on left. (Dario Mathis) Exam Results 04/21/17 04/21/17 04/22/17 04/22/17 04/23/17 04/23/17 06:00 18:00 06:00 18:00 06:00 18:00 Intake Total 1120 ml 1375 ml 960 ml 480 ml Output Total 900 ml Balance 220 ml 1375 ml 960 ml 480 ml Intake Oral 1120 ml 1375 ml 960 ml 480 ml Output Urine Total 900 ml # Voids 6 5 4 # Bowel Movements 0 0 1 1 Vital Signs Date Time Temp Pulse Resp B/P (MAP) Pulse Ox O2 Delivery O2 Flow Rate FiO2 04/23/17 13:01 21 04/23/17 12:26 98.3 95 20 103/57 (72) 94 04/23/17 09:27 18 04/23/17 08:19 98.0 64 20 112/53 (72) 95 04/23/17 05:00 98.4 62 18 92/51 (65) 95 04/23/17 00:30 97.6 68 18 94/54 (67) 95 04/22/17 20:49 98.0 77 18 98/51 (67) 95 04/22/17 17:40 95 21 04/22/17 16:32 98.8 87 20 109/55 (73) 95 04/22/17 12:32 98.2 84 20 106/55 (72) 96 04/22/17 12:31 98 21 04/22/17 08:11 98.3 65 20 112/56 (74) 98 04/22/17 05:00 98.1 69 18 120/69 (86) 97 04/22/17 00:40 98.5 82 18 129/76 (93) 97 04/21/17 16:00 98.4 72 18 110/63 (79) 98 04/21/17 12:00 84 04/21/17 12:00 98.0 84 18 106/68 (81) 96 04/21/17 08:07 96 21 04/21/17 08:00 81 04/21/17 08:00 97.5 81 15 112/62 (79) 100 04/21/17 07:00 95 Room Air 04/21/17 06:00 66 04/21/17 04:00 70 04/21/17 04:00 98.6 70 20 104/58 (73) 92 04/21/17 02:00 70 04/21/17 00:00 98.4 68 18 112/60 (77) 93 04/21/17 00:00 68 04/20/17 22:00 88 04/20/17 20:39 99 04/20/17 20:00 92 04/20/17 20:00 98.8 92 17 115/72 (86) 94 04/20/17 19:00 96 Room Air 04/20/17 16:00 87 04/20/17 16:00 98.5 87 19 111/62 (78) 93 (Dario Mathis) Physical Examination GENERAL: Awake & alert, readily interacts, affect flat, no apparent distress. HEENT: Normocephalic, well-approximated frontal surgical incision TTP w/jorge intact, no drainage, erythema or streaking noted. PERRLA, EOMI, slight ecchymosis to lower eyelid improving. MMM & pink, tongue midline to protrusion. MUSCULOSKELETAL: RIZO, no evident deformity or clubbing. NEUROLOGICAL: AA&O x3. Speech clear & appropriate although slow. Follows simple commands w/o difficulty. CN II-XII appear grossly intact. Sensation intact to light touch to all extremities. Motor strength is 4+ to 5/5 to all major flexion & extension muscle groups on the right side. Motor strength on the left is the deltoid 3/5, bicep 4/5, tricep 4/5 hand vehicle body builder 4 /5, iliopsoas 4/5, quadriceps 0/5, hamstrings 3+/5, tibialis anterior 1/5, gastrocnemius 3/5 and extensor hallucis longus 3/5. (Dario Mathis) Lab, Micro, Other Results Recent Impressions Head CT 04/23/17 0000 Signed Impressions: Service Date/Time: Sunday, April 23, 2017 02:49 - CONCLUSION: 1. Persistent hemorrhage, edema, mass effect, and air in the right frontal lobe and to lesser degree anterior left medial frontal lobe. 2. All mild subdural collections. 3. Ventriculostomy tube in place with a right frontal approach with the tip seen in the right lateral ventricle which is slitlike. 4. 8 mm of iltpy-nk-clrl midline shift. 5. Small focal hemorrhage in the posterior right midbrain. 6. The spines are all stable. Junior Sequeira MD (Dario Mathis) Medical Decision Making Impression and Plan Impression: Right frontal meningioma Right parietal meningioma The patient continues to do well. The left-sided weakness is mildly improved. There is some chance that the weakness noted may be related to the patient not being able to process the command. CT brain demonstrates persistent haemorrhage, edema, mass effect & air in the right frontal lobe and to a lesser degree the anterior left medial frontal lobe, intact ventriculostomy catheter, jxtkq-ny-reem midline shift, stable posterior right midbrain haemorrhage. . Physical Therapy recommends home w/Home Health. The mother did express home that the patient would not have to go to a prison facility but she then said that the daughter's home is cluttered and that there are cats in the home who get underfoot. POD #5 () s/p: 1. Right frontoparietal craniotomy for resection of right frontal and right parietal meningiomas 2. Right frontoparietal dural reconstruction with Durepair patch graft 3. Use of intraoperative frameless stereotactic navigation for scalp and bone flap planning and assist for tumor resection. Postoperative Diagnosis: (1) Meningioma Right frontal meningioma Right parietal meningioma Plan: Neuro checks. Stat CT brain for any worsening neuro status. Mobilise patient w/assistance. PT/OT eval & tx. Mechanical DVT prophylaxis. Hold pharmacological DVT prophylaxis. Diet as tolerated. Okay to have no heplock. Plan for discharge tomorrow. (Dario Mathis) Attending Statement The exam, history, and the medical decision-making described in the above note were completed with the assistance of the mid-level provider. I reviewed and agree with the findings presented. I attest that I had a [id number] encounter with the patient on the same day, and personally performed and documented my assessment and findings in the medical record. On my examination of 04/23/2017 in the evening, the patient is resting quietly. She arouses easily to voice Her speech is a little hesitant, mild confusion. Extraocular movements intact Was all extremities well with good strength She indicates no significant headache or nausea She is ambulating independently Incision dry and intact Stable from neurosurgical standpoint. Plan discharge home 04/24/2017 (Guanaco Leonard MD) Dario Mathis Apr 23, 2017 15:51 Guanaco Leonard MD Apr 24, 2017 00:19
[2017-04-23 16:00] VITALS: BP 108/53; PULSE 91; RESP 20; TEMP 98.4; O2SAT 95
[2017-04-23 22:06] VITALS: BP 111/53; PULSE 74; RESP 18; TEMP 98; O2SAT 97
[2017-04-24] VITALS: BP 109/54; PULSE 68; RESP 20; TEMP 98.1; O2SAT 97
[2017-04-24] MEDS: ACETAMINOPHEN/HYDROcodone 325 MG/10 MG TAB PO PRN ×2 (03:19→17:58)
[2017-04-24 04:00] VITALS: BP 99/60; PULSE 75; RESP 18; TEMP 97.7; O2SAT 98
[2017-04-24 08:00] VITALS: BP 107/59; PULSE 71; RESP 16; TEMP 98.3; O2SAT 95
[2017-04-24 09:00] VITALS: BP 107/57; PULSE 66; RESP 16; TEMP 98.3; O2SAT 95
[2017-04-24] MEDS: FAMOTIDINE 20 MG TAB PO SCH ×2 (10:23→22:36)
[2017-04-24] MEDS: DEXAMETHASONE 4 MG TAB PO SCH ×2 (10:23→22:37)
[2017-04-24] MEDS: DOCUSATE SODIUM 100 MG CAP PO SCH ×2 (10:23→22:37)
[2017-04-24] MEDS: levETIRAcetam 500 MG TAB PO SCH ×2 (10:23→22:37)
--- NOTE | 2017-04-24 11:47 | HHI.NSPN ---
History Chief Complaint: Headache. Interval History 04/18: The patient presented for a right frontoparietal craniotomy for resection of right frontal and right parietal meningiomas. Post-operatively she was admitted to the [facility] unit for further care and monitoring. 04/19: This morning the patient is awake and alert when seen. She is picking at her breakfast tray. She states that she does have a throbbing headache but has no other complaints. Her mother does report that the patient has some confusion and appears weaker on the left more than normal. Nursing reports increased urine output and a urine specific gravity of 1.004. 04/21: No new complaints Sitting in chair 04/22: When seen this afternoon the patient is asleep but awakens to voice. She does say she has a headache and pain to the surgical site. Her mother states that the patient has refused to use the left upper extremity so yesterday the mother refused to open things for her and let the patient come up with her own way of opening them. Her mother does report that the patient did reach over with her left upper this morning and grabbed the rail with her left hand to help turn herself. The patient was doing well in [facility] and was therefore transferred to a regular med/surg floor yesterday. Nursing reports that the patient does not have any IV access and that six attempts were made without success. 04/23: The patient is awake in bed when seen. She states that she does have a headache with some dizziness. She also has some pain to the surgical incision. Her mother states that the patient earlier today got up and ambulated to the walker on her own because she had to got to the bathroom because no one came in. She then got herself up to the chair for lunch. Her mother states that she is moving the left side extremities much better than yesterday.The mother did express home that the patient would not have to go to a [facility] facility but she then said that the daughter's home is cluttered and that there are cats in the home who get underfoot. 04/24: This morning the patient is awake in bed. Her mother is present as well. The patient states she does have a headache which is better. She describes it as a throbbing. She also has soreness to the surgical site. When her mother came in this morning the patient was on the floor by the opposite wall where the chair was located. She had gotten up with the walker on her own. System Review Comments HEENT: Head is sore at the surgical incision. NEUROLOGICAL: Headache. Localised weakness on left. Exam Results 04/22/17 04/22/17 04/23/17 04/23/17 04/24/17 04/24/17 06:00 18:00 06:00 18:00 06:00 18:00 Intake Total 1375 ml 960 ml 480 ml 480 ml Output Total 500 ml Balance 1375 ml 960 ml 480 ml 480 ml -500 ml Intake Oral 1375 ml 960 ml 480 ml 480 ml Output Urine Total 500 ml # Voids 6 5 4 4 3 # Bowel Movements 0 1 1 1 Vital Signs Date Time Temp Pulse Resp B/P (MAP) Pulse Ox O2 Delivery O2 Flow Rate FiO2 04/24/17 09:00 98.3 66 16 107/57 (74) 95 04/24/17 08:00 98.3 71 16 107/59 (75) 95 04/24/17 04:00 97.7 75 18 99/60 (73) 98 04/24/17 00:00 98.1 68 20 109/54 (72) 97 04/23/17 22:06 98.0 74 18 111/53 (72) 97 04/23/17 16:00 98.4 91 20 108/53 (71) 95 04/23/17 13:01 21 04/23/17 12:26 98.3 95 20 103/57 (72) 94 04/23/17 09:27 18 04/23/17 08:19 98.0 64 20 112/53 (72) 95 04/23/17 05:00 98.4 62 18 92/51 (65) 95 04/23/17 00:30 97.6 68 18 94/54 (67) 95 04/22/17 20:49 98.0 77 18 98/51 (67) 95 04/22/17 17:40 95 21 04/22/17 16:32 98.8 87 20 109/55 (73) 95 04/22/17 12:32 98.2 84 20 106/55 (72) 96 04/22/17 12:31 98 21 04/22/17 08:11 98.3 65 20 112/56 (74) 98 04/22/17 05:00 98.1 69 18 120/69 (86) 97 04/22/17 00:40 98.5 82 18 129/76 (93) 97 04/21/17 16:00 98.4 72 18 110/63 (79) 98 04/21/17 12:00 84 04/21/17 12:00 98.0 84 18 106/68 (81) 96 Physical Examination GENERAL: Awake & alert, readily interacts, affect flat, no apparent distress. HEENT: Normocephalic, well-approximated frontal surgical incision TTP w/jorge intact, no drainage, erythema or streaking noted. PERRLA, EOMI. MMM & pink, tongue midline to protrusion. MUSCULOSKELETAL: RIZO, no evident deformity or clubbing. NEUROLOGICAL: AA&O x3 although w/some confusion. When asked what the next holiday is she said New Year's. When asked if we have already had [place] she said no. Speech clear & appropriate although slow. Follows simple commands w/o difficulty. CN II-XII appear grossly intact. Sensation intact to light touch to all extremities. Motor strength is 4+ to 5/5 to all major flexion & extension muscle groups on the right side. Motor strength on the left is the deltoid 3/5, bicep 4/5, tricep 4/5 hand game breeding farm manager 4 /5, iliopsoas 4/5, quadriceps 0/5, hamstrings 3+/5, tibialis anterior 1/5, gastrocnemius 3/5 and extensor hallucis longus 3/5. Lab, Micro, Other Results Recent Impressions Head CT 04/23/17 0000 Signed Impressions: Service Date/Time: Sunday, April 23, 2017 02:49 - CONCLUSION: 1. Persistent hemorrhage, edema, mass effect, and air in the right frontal lobe and to lesser degree anterior left medial frontal lobe. 2. All mild subdural collections. 3. Ventriculostomy tube in place with a right frontal approach with the tip seen in the right lateral ventricle which is slitlike. 4. 8 mm of lfuda-dh-llhf midline shift. 5. Small focal hemorrhage in the posterior right midbrain. 6. The spines are all stable. Junior Sequeira MD Medical Decision Making Impression and Plan Impression: Right frontal meningioma Right parietal meningioma The patient is doing good. The left-sided weakness is stable. CT brain demonstrates persistent haemorrhage, edema, mass effect & air in the right frontal lobe and to a lesser degree the anterior left medial frontal lobe, intact ventriculostomy catheter, msgin-ey-bodg midline shift, stable posterior right midbrain haemorrhage. . Physical Therapy recommends home w/Home Health. The patient fell this morning and the mother is worried if the patient could have caused some injury to the brain. There is no change noted in the patient's neurological condition from yesterday. POD #6 () s/p: 1. Right frontoparietal craniotomy for resection of right frontal and right parietal meningiomas 2. Right frontoparietal dural reconstruction with Durepair patch graft 3. Use of intraoperative frameless stereotactic navigation for scalp and bone flap planning and assist for tumor resection. Postoperative Diagnosis: (1) Meningioma Right frontal meningioma Right parietal meningioma Plan: Discussed plan of care with patient and mother. Neuro checks. Stat CT brain for any worsening neuro status. Mobilise patient w/assistance. PT/OT eval & tx. Mechanical DVT prophylaxis. Hold pharmacological DVT prophylaxis. Diet as tolerated. Okay to have no heplock. Anticipate discharge later today but will let Dr Leonard know about fall before. Dario Mathis Apr 24, 2017 11:47
[2017-04-24 12:00] VITALS: BP 105/57; PULSE 65; RESP 16; TEMP 97.5; O2SAT 98
[2017-04-24 16:00] VITALS: BP 98/55; PULSE 82; RESP 16; TEMP 98.5; O2SAT 95
[2017-04-25] VITALS (7 sets, daily range): BP systolic 94–133; BP diastolic 50–62; PULSE 67–95; RESP 16–24; TEMP 97.6–98.9; O2SAT 93–99
[2017-04-25] MEDS: DOCUSATE SODIUM 100 MG CAP PO SCH ×2 (09:30→21:43)
[2017-04-25] MEDS: ACETAMINOPHEN/HYDROcodone 325 MG/10 MG TAB PO PRN ×2 (09:30→21:43)
[2017-04-25] MEDS: levETIRAcetam 500 MG TAB PO SCH ×2 (09:30→21:44)
[2017-04-25] MEDS: DEXAMETHASONE 4 MG TAB PO SCH ×2 (09:31→21:44)
[2017-04-25] MEDS: FAMOTIDINE 20 MG TAB PO SCH ×2 (09:31→21:44)
--- NOTE | 2017-04-25 14:44 | HHI.NSPN ---
History Chief Complaint: Slight headache. Interval History 04/18: The patient presented for a right frontoparietal craniotomy for resection of right frontal and right parietal meningiomas. Post-operatively she was admitted to the [facility] unit for further care and monitoring. 04/19: This morning the patient is awake and alert when seen. She is picking at her breakfast tray. She states that she does have a throbbing headache but has no other complaints. Her mother does report that the patient has some confusion and appears weaker on the left more than normal. Nursing reports increased urine output and a urine specific gravity of 1.004. 04/21: No new complaints Sitting in chair 04/22: When seen this afternoon the patient is asleep but awakens to voice. She does say she has a headache and pain to the surgical site. Her mother states that the patient has refused to use the left upper extremity so yesterday the mother refused to open things for her and let the patient come up with her own way of opening them. Her mother does report that the patient did reach over with her left upper this morning and grabbed the rail with her left hand to help turn herself. The patient was doing well in [facility] and was therefore transferred to a regular med/surg floor yesterday. Nursing reports that the patient does not have any IV access and that six attempts were made without success. 04/23: The patient is awake in bed when seen. She states that she does have a headache with some dizziness. She also has some pain to the surgical incision. Her mother states that the patient earlier today got up and ambulated to the walker on her own because she had to got to the bathroom because no one came in. She then got herself up to the chair for lunch. Her mother states that she is moving the left side extremities much better than yesterday.The mother did express home that the patient would not have to go to a penitentiary facility but she then said that the daughter's home is cluttered and that there are cats in the home who get underfoot. 04/24: This morning the patient is awake in bed. Her mother is present as well. The patient states she does have a headache which is better. She describes it as a throbbing. She also has soreness to the surgical site. When her mother came in this morning the patient was on the floor by the opposite wall where the chair was located. She had gotten up with the walker on her own. 04/25: This afternoon when seen the patient was sitting up in the chair doing her Mcdonald card list. She stated she was doing good. She does have some pain to the surgical incision and says she has a slight headache. Her mother did a video of the patient walking and she is noted to drift from side to side. She is also noted to have a left foot drop as well. Discharge planning was discussed with the mother yesterday afternoon and she stated that the patient's home is cluttered and it would be difficult for the patient to get about with the walker. Even though it has previously been discussed with the mother that the patient is ready for discharge to home she has not yet done anything to prepare the patient's home. The matter was discussed with Case Management yesterday and the patient has limited rehab benefits from her insurance and is able to do Home Health for therapy but she does not have any inpatient benefit. The patient's SSI benefit was discussed also and Case Management stated that the patient temporarily living with the mother or vice versa due to her just having surgery would not affect the SSI benefit. I went to meet with the mother to discuss the patient's discharge again and what Case Management had said but she was not in the room. Therefore this morning I discussed with the mother what Case Management had said about the limited benefits of the patient's insurance and that the SSI benefit would not be affected by the need for the patient to have someone in the home to help her for a short period of time. The mother verbalised her understanding. The mother still had not made any effort to clear the patient's home. The patient does live beside the mother in her own home. The mother seemed reluctant to let her daughter stay in her home temporarily or to stay at the daughter's although she did acknowledge that someone could stay with the daughter for the short term without loss of the SSI benefit. The mother was told that the patient is going to be discharged home with Home Health. She was told the order would be placed for tomorrow morning. She verbalised her understanding and said she would start to clean things up at the daughter's. System Review Comments HEENT: Surgical incision hurts. NEUROLOGICAL: Slight headache. Left side weakness. Exam Results 04/23/17 04/23/17 04/24/17 04/24/17 04/25/17 04/25/17 06:00 18:00 06:00 18:00 06:00 18:00 Intake Total 480 ml 480 ml Output Total 500 ml Balance 480 ml 480 ml -500 ml Intake Oral 480 ml 480 ml Output Urine Total 500 ml # Voids 4 4 3 3 # Bowel Movements 1 1 Vital Signs Date Time Temp Pulse Resp B/P (MAP) Pulse Ox O2 Delivery O2 Flow Rate FiO2 04/25/17 08:00 97.6 77 16 98/57 (71) 96 04/25/17 04:00 98.1 80 18 99/58 (72) 98 04/25/17 00:00 98.0 67 18 97/54 (68) 98 04/24/17 16:00 98.5 82 16 98/55 (69) 95 04/24/17 12:00 97.5 65 16 105/57 (73) 98 04/24/17 09:00 98.3 66 16 107/57 (74) 95 04/24/17 08:00 98.3 71 16 107/59 (75) 95 04/24/17 04:00 97.7 75 18 99/60 (73) 98 04/24/17 00:00 98.1 68 20 109/54 (72) 97 04/23/17 22:06 98.0 74 18 111/53 (72) 97 04/23/17 16:00 98.4 91 20 108/53 (71) 95 04/23/17 13:01 21 04/23/17 12:26 98.3 95 20 103/57 (72) 94 04/23/17 09:27 18 04/23/17 08:19 98.0 64 20 112/53 (72) 95 04/23/17 05:00 98.4 62 18 92/51 (65) 95 04/23/17 00:30 97.6 68 18 94/54 (67) 95 04/22/17 20:49 98.0 77 18 98/51 (67) 95 04/22/17 17:40 95 21 04/22/17 16:32 98.8 87 20 109/55 (73) 95 Physical Examination GENERAL: Awake & alert sitting in the chair, readily interacts, affect flat, no apparent distress. HEENT: Normocephalic, well-approximated frontal surgical incision TTP w/jorge intact, no drainage, erythema or streaking noted. PERRLA, EOMI. MMM & pink, tongue midline to protrusion. MUSCULOSKELETAL: RIZO, no evident deformity or clubbing. NEUROLOGICAL: AA&O x3 although w/some confusion. Speech clear & appropriate although slow. Follows simple commands w/o difficulty. CN II-XII appear grossly intact. Sensation intact to light touch to all extremities. Motor strength is 4+ to 5/5 to all major flexion & extension muscle groups on the right side. Motor strength on the left is the deltoid 3/5, bicep 4/5, tricep 4/5 hand planetarium technician 4 /5, iliopsoas 4/5, quadriceps 0/5, hamstrings 3+/5, tibialis anterior 1/5, gastrocnemius 3/5 and extensor hallucis longus 3/5. Medical Decision Making Impression and Plan Impression: Right frontal meningioma Right parietal meningioma The patient continues to do well. The left-sided weakness is stable. CT brain demonstrates persistent haemorrhage, edema, mass effect & air in the right frontal lobe and to a lesser degree the anterior left medial frontal lobe, intact ventriculostomy catheter, [id number] midline shift, stable posterior right midbrain haemorrhage. . Physical Therapy recommends home w/Home Health. POD #7 () s/p: 1. Right frontoparietal craniotomy for resection of right frontal and right parietal meningiomas 2. Right frontoparietal dural reconstruction with Durepair patch graft 3. Use of intraoperative frameless stereotactic navigation for scalp and bone flap planning and assist for tumor resection. Postoperative Diagnosis: (1) Meningioma Right frontal meningioma Right parietal meningioma Plan: Discussed plan of care with patient and mother. The mother is to get the patient 's home ready for her to be discharged tomorrow morning. Discussed plan of care with Nursing. Neuro checks. Stat CT brain for any worsening neuro status. Mobilise patient w/assistance. PT/OT eval & tx. Mechanical DVT prophylaxis. Hold pharmacological DVT prophylaxis. Diet as tolerated. Okay to have no heplock. Discharge in the morning. Dario Mathis Apr 25, 2017 14:44
[2017-04-25] MEDS ORDERED: LEVE500 PO (14:48)
[2017-04-25] MEDS ORDERED: DOCU1CAP39 PO (14:48)
[2017-04-25] MEDS ORDERED: COMMODE 3-IN-11 MIS (14:51)
[2017-04-25] MEDS ORDERED: WALKER WHEELS/F1 MIS (14:51)
--- NOTE | 2017-04-25 14:57 | HHI.FF ---
Face to Face Verification Diagnosis: (1) Meningioma (2) S/P craniotomy Physical Therapy Order: Evaluate and Treat Occupational Therapy Order: Evaluate and Treat Home Health Nursing Order: Nursing assessment with vital signs Mold Runner Order: To Evaluate: Living conditions/environment Order: To Provide: Long range planning I have seen patient Ines Arteaga on 04/25/17. My clinical findings support the need for the requested home health care services because: Deconditioned w/ increased weakness Limited ability to care for self High risk of falls I certify that my clinical findings support that this patient is homebound because: Impaired cognitive ability/safety Unsteady gait/balance Unsafe to leave home unassisted Dario Mathis [facility] Apr 25, 2017 14:57
--- NOTE | 2017-04-25 15:02 | HHI.DCPOC ---
Discharge Care Plan Diagnosis: (1) Meningioma (2) S/P craniotomy Your Health Problems Are: Incision/Drains Exercise Tolerance Loss of Movements Additional Problems Difficulty ambulating Inability to provide self care Goals to Promote Your Health * To prevent worsening of your condition and complications * To maintain your health at the optimal level No lifting, bending, pushing, pulling or other strenuous activity. No showering until the surgical incision is totally healed. Avoid taking any medication that contains aspirin or NSAIDs (ibuprofen, naproxen , Motrin, Advil, Naprosyn) for at least a month. Follow up in the office in 2 weeks after surgery for a wound check, around 05/02. Directions to Meet Your Goals Take your medications as prescribed Follow your dietary instruction Follow activity as directed No lifting, bending, pushing, pulling or other strenuous activity. No showering until the surgical incision is totally healed. Avoid taking any medication that contains aspirin or NSAIDs (ibuprofen, naproxen , Motrin, Advil, Naprosyn) for at least a month. Follow up in the office in 2 weeks after surgery for a wound check, around 05/02. Keep your appointments as scheduled Take your immunizations and boosters as scheduled If your symptoms worsen call your PCP, if no PCP go to Urgent Care Center or Emergency Room Smoking is Dangerous to Your Health. Avoid second hand smoke Call the 24-hour hour crisis hotline for domestic abuse at Dario Mathis Apr 25, 2017 15:02
--- NOTE | 2017-04-25 15:05 | HHI.DS ---
Discharge Summary Admission Date Apr 18, 2017 at 06:23 Discharge Date: Apr 26, 2017 Admitting Diagnosis (1) Meningioma Diagnosis: Principal ICD Code: D32.9 - Benign neoplasm of meninges, unspecified Status: Chronic (2) S/P craniotomy Diagnosis: Secondary ICD Code: Z98.890 - Other specified postprocedural states Hospital Course 04/18: The patient presented for a right frontoparietal craniotomy for resection of right frontal and right parietal meningiomas. Post-operatively she was admitted to the [facility] unit for further care and monitoring. 04/19: This morning the patient is awake and alert when seen. She is picking at her breakfast tray. She states that she does have a throbbing headache but has no other complaints. Her mother does report that the patient has some confusion and appears weaker on the left more than normal. Nursing reports increased urine output and a urine specific gravity of 1.004. 04/21: No new complaints Sitting in chair 04/22: When seen this afternoon the patient is asleep but awakens to voice. She does say she has a headache and pain to the surgical site. Her mother states that the patient has refused to use the left upper extremity so yesterday the mother refused to open things for her and let the patient come up with her own way of opening them. Her mother does report that the patient did reach over with her left upper this morning and grabbed the rail with her left hand to help turn herself. The patient was doing well in [facility] and was therefore transferred to a regular med/surg floor yesterday. Nursing reports that the patient does not have any IV access and that six attempts were made without success. 04/23: The patient is awake in bed when seen. She states that she does have a headache with some dizziness. She also has some pain to the surgical incision. Her mother states that the patient earlier today got up and ambulated to the walker on her own because she had to got to the bathroom because no one came in. She then got herself up to the chair for lunch. Her mother states that she is moving the left side extremities much better than yesterday.The mother did express home that the patient would not have to go to a fpc facility but she then said that the daughter's home is cluttered and that there are cats in the home who get underfoot. 04/24: This morning the patient is awake in bed. Her mother is present as well. The patient states she does have a headache which is better. She describes it as a throbbing. She also has soreness to the surgical site. When her mother came in this morning the patient was on the floor by the opposite wall where the chair was located. She had gotten up with the walker on her own. 04/25: This afternoon when seen the patient was sitting up in the chair doing her Sushant card list. She stated she was doing good. She does have some pain to the surgical incision and says she has a slight headache. Her mother did a video of the patient walking and she is noted to drift from side to side. She is also noted to have a left foot drop as well. Discharge planning was discussed with the mother yesterday afternoon and she stated that the patient's home is cluttered and it would be difficult for the patient to get about with the walker. Even though it has previously been discussed with the mother that the patient is ready for discharge to home she has not yet done anything to prepare the patient's home. The matter was discussed with Case Management yesterday and the patient has limited rehab benefits from her insurance and is able to do Home Health for therapy but she does not have any inpatient benefit. The patient's SSI benefit was discussed also and Case Management stated that the patient temporarily living with the mother or vice versa due to her just having surgery would not affect the SSI benefit. I went to meet with the mother to discuss the patient's discharge again and what Case Management had said but she was not in the room. Therefore this morning I discussed with the mother what Case Management had said about the limited benefits of the patient's insurance and that the SSI benefit would not be affected by the need for the patient to have someone in the home to help her for a short period of time. The mother verbalised her understanding. The mother still had not made any effort to clear the patient's home. The patient does live beside the mother in her own home. The mother seemed reluctant to let her daughter stay in her home temporarily or to stay at the daughter's although she did acknowledge that someone could stay with the daughter for the short term without loss of the SSI benefit. The mother was told that the patient is going to be discharged home with Home Health. She was told the order would be placed for tomorrow morning. She verbalised her understanding and said she would start to clean things up at the daughter's. Pt Condition on Discharge: Good Discharge Disposition: Disch w/ Home Health Serv Discharge Instructions DIET: Follow Instructions for: As Tolerated, No Restrictions ACTIVITIES You can perform: Full Weight Bearing Activities to Avoid: Lifting/Bending, Strenuous Activity, Shower ADDITIONAL Activity Instructio: No lifting, bending, pushing, pulling or other strenuous activity. No showering until the surgical incision is totally healed. Additional Information Avoid taking any medication that contains aspirin or NSAIDs (ibuprofen, naproxen , Motrin, Advil, Naprosyn) for at least a month. Follow up in the office in 2 weeks after surgery for a wound check, around 05/02. Dario Mathis Apr 25, 2017 15:05
[2017-04-26] VITALS: BP 103/55; PULSE 88; RESP 18; TEMP 98.2; O2SAT 95
[2017-04-26 07:31] VITALS: BP 118/47; PULSE 68; RESP 18; TEMP 98; O2SAT 95
[2017-04-26] MEDS: DOCUSATE SODIUM 100 MG CAP PO SCH (08:35)
[2017-04-26] MEDS: FAMOTIDINE 20 MG TAB PO SCH (08:35)
[2017-04-26] MEDS: DEXAMETHASONE 4 MG TAB PO SCH (08:35)
[2017-04-26] MEDS: levETIRAcetam 500 MG TAB PO SCH (08:35)
[2017-04-26 08:46] VITALS: BP 94/52; PULSE 60; RESP 18; TEMP 97.7; O2SAT 99
[2017-05-02] MEDS ORDERED: SIMV10TA (13:54)
== END 2017-04-26 09:54 | disposition home health service (06) | DRG 27 ==
LOC: HSDI 06:23 → N03A 16:08 → N05B 04-21 13:13
PROVIDERS: ADMIT Neurological Surgery; ATTEND Neurological Surgery
PROC: 00U20KZ Supplement Dura Mater with Nonautologous Tissue Substitute, Open Approach (ICD-10-PCS; 2017-04-18)
PROC: 00W60JZ Revision of Synthetic Substitute in Cerebral Ventricle, Open Approach (ICD-10-PCS; 2017-04-18)
PROC: 2W30XYZ Immobilization of Head using Other Device (ICD-10-PCS; 2017-04-18)
PROC: 8E09XBZ Computer Assisted Procedure of Head and Neck Region (ICD-10-PCS; 2017-04-18)
PROC: 00B10ZZ Excision of Cerebral Meninges, Open Approach (ICD-10-PCS; principal; 2017-04-18 08:20)
DX: D32.0 Benign neoplasm of cerebral meninges (principal); E78.5 Hyperlipidemia, unspecified; K21.9 Gastro-esophageal reflux disease without esophagitis; D64.9 Anemia, unspecified; E66.9 Obesity, unspecified; Z68.33 Body mass index [BMI] 33.0-33.9, adult; Z98.2 Presence of cerebrospinal fluid drainage device; M21.372 Foot drop, left foot; M62.81 Muscle weakness (generalized)
CPT/HCPCS: 36430; 70450; 80048; 81003; 85025; 85610; 85730; 86850; 86900; 86901; 86920; 88307; 94150; C1713; C1781; J0690; J1100; J1580; J1953; J2150; J2250; J2270; J2370; J2405; J3010; J3480; J7040; J7050; J7120; J8540; P9016

== ENCOUNTER 2017-05-10 16:14 | Emergency (ER) | payer MEDICAID ==
[~2017-05-10] VITALS: Ht 147.3 cm; Wt 69.5 kg
[~2017-05-10 16:14] MED LIST changes: +COMMODE 3-IN-11 MIS; +DOCU1CAP39 PO; +LEVE500 PO; +SIMV10TA; +WALKER WHEELS/F1 MIS
[2017-05-10 16:15] VITALS: BP 131/69; PULSE 99; RESP 18; TEMP 99; O2SAT 97
[2017-05-10 16:37] VITALS: BP 139/75; PULSE 92; RESP 18; O2SAT 97
[2017-05-10] MEDS ORDERED: SIMV10TA PO (16:41)
[2017-05-10] MEDS ORDERED: DEXA2TAB PO (16:41)
[2017-05-10] MEDS ORDERED: MIGRTAB (16:41)
[2017-05-10] MEDS ORDERED: LEVE500T8 PO (16:41)
[2017-05-10] MEDS ORDERED: RANI150T PO (16:41)
[2017-05-10 16:54] VITALS: RESP 18; O2SAT 98
--- NOTE | 2017-05-10 16:58 | PD ---
HPI Chief Complaint: Facial Pain or Swelling Time Seen by Provider: 16:36 Travel History International Travel<30 days: No Contact w/Intl Traveler<30days: No Traveled to known affect area: No History of Present Illness HPI 46-year-old female planes of headache and facial swelling and rash on the scalp. Patient status post right frontal parietal craniotomy for resection of meningioma on April 18, 2017. Patient was discharged home on April 26, 2017. Patient states that she has increasing swelling around the facial area and a red rash on the scalp and the frontal head. Patient states that she has mild headache. Patient denies any visual change. Patient denies any neck pain. Patient denies any chest pain or shortness of breath. Patient denies abdominal pain. Patient denies any focal weakness or numbness of extremity. Patient's on dexamethasone. Patient contacted Dr. Leonard, neurosurgeon. Patient was advised to return to ED for CT scan of the brain with and without contrast. PFSH Past Medical History Cancer: Yes (LEUKEMIA) Cardiovascular Problems: No Cerebrovascular Accident: No Diabetes: No Diminished Hearing: No Endocrine: No Genitourinary: No Headaches: Yes Hepatitis: No Immune Disorder: No Musculoskeletal: No Neurologic: Yes (HX BRAIN TUMORS, CONTROL CLERK AUDITING SHUNT) Psychiatric: No Reproductive: No Respiratory: No Immunizations Current: Yes Migraines: No Seizures: No Sickle Cell Disease: No ?: Not Past Surgical History Abdominal Surgery: No AICD: No Arteriovenous Shunt: Yes (SHUNT IN HEAD (PROGRAMMABLE)) Body Medical Devices: CONTROL CLERK AUDITING SHUNT Cardiac Surgery: No Ear Surgery: No Endocrine Surgery: No Eye Surgery: Yes (RIGHT EYE FRACTURE) Genitourinary Surgery: No Gynecologic Surgery: Yes (VAGINAL HYSTERECTOMY) Hysterectomy: Yes Insulin Pump: No Joint Replacement: No Neurologic Surgery: Yes (BRAIN TUMOR SURGERY AND SHUNT PLACED) Oral Surgery: No Pacemaker: No Thoracic Surgery: No Other Surgery: Yes (RIGHT EYE, SHUNT IN HEAD PLACED, HYSTERECTOMY, DERMOID CYST , BRAIN TUMOR) Social History Alcohol Use: No Tobacco Use: No Substance Use: No Allergies-Medications (Allergen,Severity, Reaction): Coded Allergies: sulfamethoxazole (Unverified Allergy, Intermediate, 05/10/17) HIVES trimethoprim (Unverified Allergy, Intermediate, 05/10/17) HIVES Reported Meds & Prescriptions Reported Meds & Active Scripts Active Commode 3-in-1 (Device) 1 Mis Mis Ea .ROUTE DIRECTED Walker with Front Wheels (Device) 1 Mis Mis Ea .ROUTE DIRECTED Keppra (Levetiracetam) 500 Mg Tab 500 Mg PO BID Dok (Docusate Sodium) 100 Mg Cap 100 Mg PO BID Dexamethasone 2 Mg Tab 2 Mg PO BID Reported Simvastatin 10 Mg Tab 10 Mg PO DAILY Dexamethasone 2 Mg Tab 2 Mg PO BID Levetiracetam 500 Mg Tab 500 Mg PO BID Migraine Formula (Yyhoqog-Ugvbhevmatnqx-Umwbrylo) 250-250-65 Mg Tab Ranitidine (Ranitidine HCl) 150 Mg Tab 150 Mg PO BID Simvastatin 10 Mg Tab Meclizine (Meclizine HCl) 12.5 Mg Tab 12.5 Mg PO DIRECTED PRN Review of Systems General / Constitutional: No: Fever Eyes: No: Visual changes HENT: Positive: Headaches Cardiovascular: No: Chest Pain or Discomfort Respiratory: No: Shortness of Breath Gastrointestinal: No: Abdominal Pain Genitourinary: No: Dysuria Musculoskeletal: No: Pain Skin: No Rash Neurologic: No: Weakness Psychiatric: No: Depression Endocrine: No: Polydipsia Hematologic/Lymphatic: No: Easy Bruising Physical Exam Narrative GENERAL: Well-nourished, well-developed patient. SKIN: Focused skin assessment warm/dry. HEAD: Normocephalic. Patient has a small area of pustule vesicles on the scalp above the forehead. Patient has mild edema on the chin area and submandibular area. No induration no redness no tenderness on palpation. EYES: No scleral icterus. No injection or drainage. Pupils 2 mm equal reactive. NECK: Supple, trachea midline. No JVD or lymphadenopathy. CARDIOVASCULAR: Regular rate and rhythm without murmurs, gallops, or rubs. RESPIRATORY: Breath sounds equal bilaterally. No accessory muscle use. GASTROINTESTINAL: Abdomen soft, non-tender, nondistended. MUSCULOSKELETAL: No cyanosis, or edema. BACK: Nontender without obvious deformity. No CVA tenderness. Neurologic exam normal. Data Data Last Documented VS Vital Signs Date Time Temp Pulse Resp B/P (MAP) Pulse Ox O2 Delivery O2 Flow Rate FiO2 05/10/17 16:37 92 18 139/75 (96) 97 Room Air 05/10/17 16:15 99.0 Orders Orders Complete Blood Count With Diff (05/10/17 16:44) Basic Metabolic Panel (Bmp) (05/10/17 16:44) Iv Access Insert/Monitor (05/10/17 16:44) Ecg Monitoring (05/10/17 16:44) Oximetry (05/10/17 16:44) Ct Brain W & W/O Iv Contrast (05/10/17 ) MDM Medical Decision Making Medical Screen Exam Complete: Yes Emergency Medical Condition: Yes Differential Diagnosis Differential diagnosis including skin irritation, folliculitis, edema secondary to surgery. Narrative Course 46-year-old female small area of pustule lesions on the scalp, mild edema on the facial area. Status post craniotomy and CONTROL CLERK AUDITING shunt on April 18, 2017. Juan Carlos Art MD May 10, 2017 16:58
[2017-05-10 17:27] LABS: AUTOMATED NEUTROPHIL # 8.1 TH/MM3 (1.8-7.7); BASOPHIL % 0.3 % (0.0-2.0); EOSINOPHIL # 0.1 TH/MM3 (0-0.4); EOSINOPHIL % 0.6 % (0.0-4.0); HEMATOCRIT 37.3 % (35.0-46.0); HEMOGLOBIN 12.3 GM/DL (11.6-15.3); LYMPH % 11.1 % (9.0-44.0); LYMPHOCYTE # 1.1 TH/MM3 (1.0-4.8); MEAN CELL VOLUME 94.9 FL (80.0-100.0); MEAN CORPUSCULAR HEMOGLOBIN 31.4 PG (27.0-34.0); MEAN CORPUSCULAR HGB CONC 33.1 % (32.0-36.0); MEAN PLATELET VOLUME 8.6 FL (7.0-11.0); MONOCYTE # 0.4 TH/MM3 (0-0.9); PLATELET COUNT 114 TH/MM3 (150-450); RED BLOOD COUNT 3.93 MIL/MM3 (4.00-5.30); RED CELL DISTRIBUTION WIDTH 18.4 % (11.6-17.2); WHITE BLOOD COUNT 9.6 TH/MM3 (4.0-11.0)
[2017-05-10 17:55] LABS: BICARBONATE 23.5 MEQ/L (21.0-32.0); CALCIUM 9.3 MG/DL (8.5-10.1); CREATININE 0.69 MG/DL (0.50-1.00)
[2017-05-10 18:30] LABS: BANDS 1 % (0-6); LYMPHOCYTES 7 % (9-44); METAMYELOCYTES 2 % (0-1); MONOCYTES 3 % (0-8); MYELOCYTES 1 % (0-0); NEUTROPHIL # MANUAL DIFF 8.6 TH/MM3 (1.8-7.7); POLYS (SEG NEUTROPHILS) 86 % (16-70)
[2017-05-10] MEDS ORDERED: IOHEXOL 350 MG/ML 10 ML VIAL (for RAD DIAG) IVCONTRAST ONE (19:16)
--- NOTE | 2017-05-10 19:44 | RADRPT ---
EXAM DATE/TIME: 05/10/2017 19:16 [place] COMPARISON: CT BRAIN W/O CONTRAST, April 23, 2017, 2:49. 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 Craniotomy. ENCOUNTER: Initial ACUITY: 1 day PAIN SCALE: 5/10 LOCATION: cranial TECHNIQUE: Multiple contiguous axial images were obtained of the head. Using automated exposure control and adj ustment of the mA and/or kV according to patient size, radiation dose was kept as low as reasonably a chievable to obtain optimal diagnostic quality images. DICOM format image data is available electro nically for review and comparison. FINDINGS: Comparison is to April 23. Right hemispheric edema and mass effect has decreased the midline shift has decreased from about 8 mm to 4 mm there is a right frontal ventriculostomy with tip near the for amen of [place]. Ventricular size is within normal range. Post craniotomy changes again noted bilatera lly. Previous pneumocephalus has improved. Residual subdural fluid on the right measures about 1 cm i n thickness, improved from April 23. No new intracranial hemorrhage. CONCLUSION: 1. Postoperative changes as above with decreasing edema and mass effect in the right hemisphere and d ecreasing midline shift. Also improving pneumocephalus and right subdural fluid collection. No new he morrhage. Ventricular size within normal limits. Nathan Beltre MD on May 10, 2017 at 19:38 Board Certified Radiologist. This report was verified electronically.
[2017-05-10] MEDS ORDERED: oxyCODONE/ACETAMINOPHEN 5 MG/325 MG TAB PO ONE (21:15)
[2017-05-10] MEDS ORDERED: KETOROLAC TROMETHAMINE 30 MG/ML (IVP) VIAL IV PUSH ONE (21:15)
[2017-05-10] MEDS ORDERED: IBUP-232 PO (21:37)
[2017-05-10] MEDS ORDERED: HYDR-3516 PO (21:37)
--- NOTE | 2017-05-10 21:40 | PD ---
Physical Exam Date Seen by Provider: May 10, 2017 Time Seen by Provider: 20:00 Narrative I spoke with for Dr. Leonard of neurosurgery. 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 I reassure the family that most likely her facial swelling is secondary to postoperative edema that is now draining to gravity depend area ..now that she is more upright walking around more and standing upright and that explains why she would've symmetrical swelling of her cheeks ..patient feels better.. reviewed white count with Dr. Conklin and he does not feel there is need for further eval in ER nor Admission No indication of infection or any other intervention at this time I will discharge her home with pain medication and follow-up as an outpatient Neuro Surg Data Data Last Documented VS Vital Signs Date Time Temp Pulse Resp B/P (MAP) Pulse Ox O2 Delivery O2 Flow Rate FiO2 05/10/17 21:35 05/10/17 16:54 18 98 05/10/17 16:37 92 Room Air 05/10/17 16:15 99.0 Orders Orders Complete Blood Count With Diff (05/10/17 16:44) Basic Metabolic Panel (Bmp) (05/10/17 16:44) Iv Access Insert/Monitor (05/10/17 16:44) Ecg Monitoring (05/10/17 16:44) Oximetry (05/10/17 16:44) Ct Brain W & W/O Iv Contrast (05/10/17 ) Oxycodone-Acetamin 5-325 Mg (Percocet (05/10/17 21:15) Ketorolac Inj (Toradol Inj) (05/10/17 21:15) Labs Laboratory Tests Test 05/10/17 16:55 White Blood Count 9.6 TH/MM3 Red Blood Count 3.93 MIL/MM3 Hemoglobin 12.3 GM/DL Hematocrit 37.3 % Mean Corpuscular Volume 94.9 FL Mean Corpuscular Hemoglobin 31.4 PG Mean Corpuscular Hemoglobin Concent 33.1 % Red Cell Distribution Width 18.4 % Platelet Count 114 TH/MM3 Mean Platelet Volume 8.6 FL Neutrophils (%) (Auto) 84.0 % Lymphocytes (%) (Auto) 11.1 % Monocytes (%) (Auto) 4.0 % Eosinophils (%) (Auto) 0.6 % Basophils (%) (Auto) 0.3 % Neutrophils # (Auto) 8.1 TH/MM3 Lymphocytes # (Auto) 1.1 TH/MM3 Monocytes # (Auto) 0.4 TH/MM3 Eosinophils # (Auto) 0.1 TH/MM3 Basophils # (Auto) 0.0 TH/MM3 CBC Comment AUTO DIFF Differential Total Cells Counted 100 Neutrophils % (Manual) 86 % Band Neutrophils % 1 % Lymphocytes % 7 % Monocytes % 3 % Neutrophils # (Manual) 8.6 TH/MM3 Metamyelocytes 2 % Myelocytes 1 % Differential Comment FINAL DIFF MANUAL Platelet Estimate LOW Platelet Morphology Comment NORMAL Red Cell Morphology Comment NORMAL Blood Urea Nitrogen 15 MG/DL Creatinine 0.69 MG/DL Random Glucose 120 MG/DL Calcium Level 9.3 MG/DL Sodium Level 135 MEQ/L Potassium Level 5.5 MEQ/L Chloride Level 102 MEQ/L Carbon Dioxide Level 23.5 MEQ/L Anion Gap 10 MEQ/L Estimat Glomerular Filtration Rate 91 ML/MIN MDM Supervised Visit with MARIA LUISA: No Narrative Course Patient is having pain mainly of the incision assessment for pain medication I reviewed all of her findings with the neurosurgical team Dr. Katerin freeman Dr. : In a feel she can go home without any intervention further at this time discharge her home with 10 pills of hydrocodone and ibuprofen 600 mg pills 10 Diagnosis Primary Impression: Postoperative pain Additional Impression: Postoperative edema Patient Instructions: Acute Headache (ED), General Instructions Scripts Ibuprofen (Ibuprofen) 600 Mg Tab 600 MG PO Q6H Y for Pain/Inflammation, #20 TAB 0 Refills Prov: Nikunj Zamudio MD 05/10/17 Hydrocodone-Acetaminophen (Hydrocodone-Acetaminophen) 5-325 mg Tab 1 TAB PO Q4H Y for PAIN, #12 TAB 0 Refills Prov: Nikunj Zamudio MD 05/10/17 Disposition: 01 DISCHARGE HOME Condition: Good Nikunj Zamudio MD May 10, 2017 21:40
[2017-05-22] MEDS ORDERED: DEXA1TAB PO (16:45)
== END 2017-05-10 21:58 | disposition home or self-care (01) ==
LOC: NEPE 16:14
DX: G89.18 Other acute postprocedural pain (principal); R60.9 Edema, unspecified; Z98.2 Presence of cerebrospinal fluid drainage device
CPT/HCPCS: 70470; 80048; 85007; 85027; 96374; 99284; J1885; Q9967

== ENCOUNTER 2017-05-12 14:12 | Emergency (ER) | payer MEDICAID ==
[~2017-05-12] VITALS: Ht 147.3 cm; Wt 68.0 kg
[~2017-05-12 14:12] MED LIST changes: +HYDR-3516 PO; +IBUP-232 PO; +LEVE500T8 PO; +MIGRTAB; +RANI150T PO; +SIMV10TA PO
[2017-05-12 14:14] VITALS: BP 108/58; PULSE 102; RESP 18; TEMP 98.6; O2SAT 97
[2017-05-12 14:31] VITALS: O2SAT 97
[2017-05-12] MEDS ORDERED: ONDANSETRON HCL 4 MG/2 ML VIAL IV PUSH ONE (15:00)
[2017-05-12] MEDS ORDERED: MORPHINE SULFATE 2 MG/ML INJ IV PUSH ONE (15:00)
[2017-05-12 16:04] LABS: AUTOMATED NEUTROPHIL # 11.9 TH/MM3 (1.8-7.7); BASOPHIL % 0.1 % (0.0-2.0); EOSINOPHIL % 0.1 % (0.0-4.0); HEMATOCRIT 37.1 % (35.0-46.0); HEMOGLOBIN 12.2 GM/DL (11.6-15.3); LYMPH % 7.1 % (9.0-44.0); LYMPHOCYTE # 0.9 TH/MM3 (1.0-4.8); MEAN CELL VOLUME 96.1 FL (80.0-100.0); MEAN CORPUSCULAR HEMOGLOBIN 31.6 PG (27.0-34.0); MEAN CORPUSCULAR HGB CONC 32.9 % (32.0-36.0); MEAN PLATELET VOLUME 8.1 FL (7.0-11.0); MONOCYTE # 0.5 TH/MM3 (0-0.9); NEUT % 88.7 % (16.0-70.0); PLATELET COUNT 204 TH/MM3 (150-450); RED BLOOD COUNT 3.86 MIL/MM3 (4.00-5.30); RED CELL DISTRIBUTION WIDTH 18.2 % (11.6-17.2); WHITE BLOOD COUNT 13.4 TH/MM3 (4.0-11.0)
--- NOTE | 2017-05-12 16:38 | RADRPT ---
EXAM DATE/TIME: 05/12/2017 15:57 This report includes an Addendum and supersedes previous reports for this exam. [facility] COMPARISON: CT BRAIN W/O CONTRAST, April 23, 2017, 2:49. INDICATIONS : Cephalgia. RADIATION DOSE: 56.77 CTDIvol (mGy) MEDICAL HISTORY : Leukemia. Brain tumor. SURGICAL HISTORY : Craniotomy. 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 ENCOUNTER: Initial ACUITY: 2 days PAIN SCALE: 10/10 LOCATION: cranial TECHNIQUE: Multiple contiguous axial images were obtained of the head. Using automated exposure control and adj ustment of the mA and/or kV according to patient size, radiation dose was kept as low as reasonably a chievable to obtain optimal diagnostic quality images. DICOM format image data is available electro nically for review and comparison. FINDINGS: There is no evidence of acute cortical infarction, acute hemorrhage, mass effect or midline shift. Sh unt is present in the right frontal horn and the ventricles are normal in size. The previously seen e elizbaeth and infarct in the right frontal lobe as no lung or identified with encephalomalacia present. Th ere is a subdural hematoma over right cerebral convexity patient maximally 15 mm in thickness but the re is only minimal mass effect mass effect and no signs of herniation. Posterior fossa structures are unremarkable. CONCLUSION: 1. Evolving postsurgical changes in the right frontal region with subdural hematoma on the right with minimal mass effect but no significant midline shift. 2. No evidence of acute hemorrhage Vasyl Valenzuela MD on May 12, 2017 at 16:33 Board Certified Radiologist. This report was verified electronically. ADDENDUM: COMPARISON: CT BRAIN W & W/O CONTRAST, May 10, 2017, 19:16. There is decreasing extra-axial gas over the right cerebral convexity. The mass effect is unchanged f rom the prior study. Vasyl Valenzuela MD on May 12, 2017 at 17:09 Board Certified Radiologist. This report was verified electronically.
[2017-05-12 16:42] LABS: ALBUMIN 3.4 GM/DL (3.4-5.0); ALKALINE PHOSPHATASE 67 U/L (45-117); ALT (GPT) 39 U/L (10-53); AST (GOT) 21 U/L (15-37); BICARBONATE 23.3 MEQ/L (21.0-32.0); BLOOD UREA NITROGEN 18 MG/DL (7-18); C-REACTIVE PROTEIN LESS THAN 0.29 MG/DL (0.00-0.30); CALCIUM 8.5 MG/DL (8.5-10.1); CHLORIDE 104 MEQ/L (98-107); CREATININE 0.73 MG/DL (0.50-1.00); GLOMERULAR FILTRATION RATE 85 ML/MIN (>89); GLUCOSE,RANDOM 117 MG/DL (74-106); LIPASE 346 U/L (73-393); MAGNESIUM 2.4 MG/DL (1.5-2.5); SODIUM (NA) 136 MEQ/L (136-145); TOTAL BILIRUBIN ADULT 0.4 MG/DL (0.2-1.0); TOTAL PROTEIN 6.8 GM/DL (6.4-8.2)
--- NOTE | 2017-05-12 17:03 | RADRPT ---
EXAM DATE/TIME: 05/12/2017 15:37 [facility] COMPARISON: SHUNT SERIES, January 24, 2016, 19:47. INDICATIONS : Headaches, cat scan two days ago. MEDICAL HISTORY : Brain tumor SURGICAL HISTORY : Hysterectomy. Craniotomy. ENCOUNTER: Subsequent ACUITY: 3 days PAIN SCORE: 8/10 LOCATION: Bilateral cranial FINDINGS: Radiograph of the skull, neck, chest and abdomen performed to evaluate shunt patency. The shunt cath eter is seen entering the right frontal region with its tip in the region of the body of the left lat eral ventricle. The catheter is continuous in its course terminating in the pelvis No catheter disruption is identifi ed. The visualized heart, lungs and abdominal structures are intact. CONCLUSION: Intact shunt. Vasyl Valenzuela MD on May 12, 2017 at 16:59 Board Certified Radiologist. This report was verified electronically.
[2017-05-12 17:19] VITALS: BP_SYST 107; BP_SYST 110; BP_SYST 112; BP_DIAS 55; BP_DIAS 58; BP_DIAS 59
[2017-05-12] MEDS ORDERED: ACYCLOVIR 800 MG TAB PO ONE (17:45)
[2017-05-12] MEDS ORDERED: CEPHALEXIN MONOHYDRATE 500 MG CAP PO ONE (17:45)
[2017-05-12] MEDS ORDERED: CLINDAMYCIN 150 MG CAP PO ONE (18:00)
[2017-05-12] MEDS ORDERED: CLIN150C14 PO (18:01)
[2017-05-12] MEDS ORDERED: MUPI2OIN TOPICAL (18:01)
[2017-05-12] MEDS ORDERED: ACYC800T PO (18:01)
--- NOTE | 2017-05-12 18:11 | PD ---
HPI Chief Complaint: Headache Time Seen by Provider: 14:36 Travel History International Travel<30 days: No Contact w/Intl Traveler<30days: No Traveled to known affect area: No History of Present Illness HPI 46-year-old female that presents to the ED for evaluation of headache and swelling. Per family member patient has been complaining of headache on and off since having a craniotomy on April 21. Patient was seen here 2 days ago for swelling and what appears to be postsurgical changes. She had a CT done with conscious at the time and had a consultation to Dr. Conklin who is on-call for Dr. Leonard who did the surgery and he agreed the patient could follow with Dr. Leonard. Patient has had no new neurological deficits. Patient does have a superficial infection to the forehead of unclear etiology. Per family is been there for about 5 days. Mother is mainly concerned because patient's symptoms do not seem to be improving even after the craniotomy. Unclear the been followed by Dr. Loenard. The complaints that the patient has been having balance issues since before the surgery. Per patient the pain comes in waves and is significant. She denies any nausea or vomiting but she had a bout of this yesterday and she was given some medication [id number] with some relief. Patient was seen here 2 days ago and was prescribed hydrocodone and ibuprofen and the patient has been taking ibuprofen with some relief of her pain but she did not get the prescription filled for the hydrocodone as she only got it today. She has not yet taken this medication. She complains that her headache is significant. Patient herself doesn't really provide much information and most information obtained from the mother who is the primary caregiver. PFSH Past Medical History Cancer: Yes (LEUKEMIA) Cardiovascular Problems: No Cerebrovascular Accident: No Diabetes: No Diminished Hearing: No Endocrine: No Genitourinary: No Headaches: Yes Hepatitis: No Immune Disorder: No Musculoskeletal: No Neurologic: Yes (HX BRAIN TUMORS, TICKET MARKER SHUNT) Psychiatric: No Reproductive: No Respiratory: No Immunizations Current: Yes Migraines: No Seizures: No Sickle Cell Disease: No ?: Not Past Surgical History Abdominal Surgery: No AICD: No Arteriovenous Shunt: Yes (SHUNT IN HEAD (PROGRAMMABLE)) Body Medical Devices: TICKET MARKER SHUNT Cardiac Surgery: No Ear Surgery: No Endocrine Surgery: No Eye Surgery: Yes (RIGHT EYE FRACTURE) Genitourinary Surgery: No Gynecologic Surgery: Yes (VAGINAL HYSTERECTOMY) Hysterectomy: Yes Insulin Pump: No Joint Replacement: No Neurologic Surgery: Yes (BRAIN TUMOR SURGERY AND SHUNT PLACED) Oral Surgery: No Pacemaker: No Thoracic Surgery: No Other Surgery: Yes (RIGHT EYE, SHUNT IN HEAD PLACED, HYSTERECTOMY, DERMOID CYST , BRAIN TUMOR) Social History Alcohol Use: No Tobacco Use: No Substance Use: No Allergies-Medications (Allergen,Severity, Reaction): Coded Allergies: sulfamethoxazole (Unverified Allergy, Intermediate, 05/12/17) HIVES trimethoprim (Unverified Allergy, Intermediate, 05/12/17) HIVES Reported Meds & Prescriptions Reported Meds & Active Scripts Active Mupirocin Topical (Mupirocin) 2 % Oint 1 Applic TOPICAL BID Acyclovir 800 Mg Tab 800 Mg PO 5 TIMES A DAY 7 Days Clindamycin (Clindamycin HCl) 150 Mg Cap 300 Mg PO Q8HR 10 Days Ibuprofen 600 Mg Tab 600 Mg PO Q6H PRN Hydrocodone-Acetaminophen 5-325 mg Tab 1 Tab PO Q4H PRN Commode 3-in-1 (Device) 1 Mis Mis Ea .ROUTE DIRECTED Walker with Front Wheels (Device) 1 Mis Mis Ea .ROUTE DIRECTED Keppra (Levetiracetam) 500 Mg Tab 500 Mg PO BID Dok (Docusate Sodium) 100 Mg Cap 100 Mg PO BID Dexamethasone 2 Mg Tab 2 Mg PO BID Reported Simvastatin 10 Mg Tab 10 Mg PO DAILY Dexamethasone 2 Mg Tab 2 Mg PO BID Levetiracetam 500 Mg Tab 500 Mg PO BID Migraine Formula (Bvoxpuj-Cdgavlsfbhnou-Jdypunsa) 250-250-65 Mg Tab Ranitidine (Ranitidine HCl) 150 Mg Tab 150 Mg PO BID Meclizine (Meclizine HCl) 12.5 Mg Tab 12.5 Mg PO DIRECTED PRN Review of Systems Except as stated in HPI: all other systems reviewed are Neg Physical Exam Narrative GENERAL: SKIN: Warm and dry. Patient does have what appears to be a herpetic rash to the forehead and appears to spare the left side. She does have what appears to be blisters as well as yellow crusting. No noted on the surgical scars. Only on the forehead but also noted on the right temporal head HEAD: Atraumatic. Normocephalic. EYES: Pupils equal and round. No scleral icterus. No injection or drainage. ENT: No nasal bleeding or discharge. Mucous membranes pink and moist. Tongue is midline. No uvula deviation. NECK: Trachea midline. No JVD. CARDIOVASCULAR: Regular rate and rhythm. No murmurs, S3, S4. RESPIRATORY: No accessory muscle use. Clear to auscultation. Breath sounds equal bilaterally. GASTROINTESTINAL: Abdomen soft, non-tender, nondistended. Hepatic and splenic margins not palpable. MUSCULOSKELETAL: Extremities without clubbing, cyanosis, or edema. No obvious deformities. Full range of motion of the upper and lower extremities bilaterally. Patient does have some weakness to the left side compared to the right which appears to be chronic for her medical records. NEUROLOGICAL: Awake and alert. No obvious cranial nerve deficits. Motor grossly within normal limits. Five out of 5 muscle strength in the arms and legs. Normal speech. PSYCHIATRIC: Appropriate mood and affect; insight and judgment normal. Data Data Last Documented VS Vital Signs Date Time Temp Pulse Resp B/P (MAP) Pulse Ox O2 Delivery O2 Flow Rate FiO2 05/12/17 17:19 75 107/59 (75) 85 112/58 (76) 87 110/55 (73) 05/12/17 14:32 16 Room Air 05/12/17 14:31 97 05/12/17 14:14 98.6 Orders Orders Electrocardiogram (05/12/17 14:51) Complete Blood Count With Diff (05/12/17 14:51) Comprehensive Metabolic Panel (05/12/17 14:51) Prothrombin Time / Inr (Pt) (05/12/17 14:51) Act Partial Throm Time (Ptt) (05/12/17 14:51) Blood Culture (05/12/17 14:51) C-Reactive Protein (Crp) (05/12/17 14:51) Lipase (05/12/17 14:51) Urinalysis - C+S If Indicated (05/12/17 14:51) Magnesium (Mg) (05/12/17 14:51) Thyroid Stimulating Hormone (05/12/17 14:51) Iv Access Insert/Monitor (05/12/17 14:51) Ecg Monitoring (05/12/17 14:51) Oximetry (05/12/17 14:51) Orthostatic Vital Signs (05/12/17 14:51) Morphine Inj (Morphine Inj) (05/12/17 15:00) Ondansetron Inj (Zofran Inj) (05/12/17 15:00) Shunt Series (05/12/17 ) Ct Brain W/O Iv Contrast(Rout) (05/12/17 ) Acyclovir (Zovirax) (05/12/17 17:45) Cephalexin (Keflex) (05/12/17 17:45) Ed Discharge Order (05/12/17 17:58) Clindamycin (Cleocin) (05/12/17 18:00) Labs Laboratory Tests Test 05/12/17 15:50 05/12/17 17:11 White Blood Count 13.4 TH/MM3 Red Blood Count 3.86 MIL/MM3 Hemoglobin 12.2 GM/DL Hematocrit 37.1 % Mean Corpuscular Volume 96.1 FL Mean Corpuscular Hemoglobin 31.6 PG Mean Corpuscular Hemoglobin Concent 32.9 % Red Cell Distribution Width 18.2 % Platelet Count 204 TH/MM3 Mean Platelet Volume 8.1 FL Neutrophils (%) (Auto) 88.7 % Lymphocytes (%) (Auto) 7.1 % Monocytes (%) (Auto) 4.0 % Eosinophils (%) (Auto) 0.1 % Basophils (%) (Auto) 0.1 % Neutrophils # (Auto) 11.9 TH/MM3 Lymphocytes # (Auto) 0.9 TH/MM3 Monocytes # (Auto) 0.5 TH/MM3 Eosinophils # (Auto) 0.0 TH/MM3 Basophils # (Auto) 0.0 TH/MM3 CBC Comment AUTO DIFF Differential Comment AUTO DIFF CONFIRMED Platelet Estimate NORMAL Platelet Morphology Comment CLUMPED Blood Urea Nitrogen 18 MG/DL Creatinine 0.73 MG/DL Random Glucose 117 MG/DL Total Protein 6.8 GM/DL Albumin 3.4 GM/DL Calcium Level 8.5 MG/DL Magnesium Level 2.4 MG/DL Alkaline Phosphatase 67 U/L Aspartate Amino Transf (AST/SGOT) 21 U/L Alanine Aminotransferase (ALT/SGPT) 39 U/L Total Bilirubin 0.4 MG/DL Sodium Level 136 MEQ/L Potassium Level 4.3 MEQ/L Chloride Level 104 MEQ/L Carbon Dioxide Level 23.3 MEQ/L Anion Gap 9 MEQ/L Estimat Glomerular Filtration Rate 85 ML/MIN C-Reactive Protein LESS THAN 0.29 MG/DL Lipase 346 U/L Thyroid Stimulating Hormone 3rd Gen 0.831 uIU/ML MDM Medical Decision Making Medical Screen Exam Complete: Yes Emergency Medical Condition: Yes Medical Record Reviewed: Yes Interpretation(s) CBC & BMP Diagram CBC & BMP Diagram 05/12/17 15:50 Total Protein 6.8, Albumin 3.4, Calcium Level 8.5 #, Magnesium Level 2.4, Alkaline Phosphatase 67, Aspartate Amino Transf (AST/SGOT) 21, Alanine Aminotransferase (ALT/SGPT) 39, Total Bilirubin 0.4 05/12/17 15:50 Total Protein 6.8, Albumin 3.4, Calcium Level 8.5 #, Magnesium Level 2.4, Alkaline Phosphatase 67, Aspartate Amino Transf (AST/SGOT) 21, Alanine Aminotransferase (ALT/SGPT) 39, Total Bilirubin 0.4 Last Impressions Shunt Study (Imaging) 05/12/17 0000 Signed Impressions: Service Date/Time: Friday, May 12, 2017 15:37 - CONCLUSION: Intact shunt. Vasyl Valenzuela MD Head CT 05/12/17 0000 Signed Impressions: Service Date/Time: Friday, May 12, 2017 15:57 - CONCLUSION: 1. Evolving postsurgical changes in the right frontal region with subdural hematoma on the right with minimal mass effect but no significant midline shift. 2. No evidence of acute hemorrhage Vasyl Valenzuela MD ADDENDUM: COMPARISON: CT BRAIN W & W/O CONTRAST, May 10, 2017, 19:16. There is decreasing extra-axial gas over the right cerebral convexity. The mass effect is unchanged from the prior study. Vasyl Valenzuela MD Differential Diagnosis Shunt malfunction versus impetigo versus shingles versus acute on chronic symptoms versus headache Narrative Course 46-year-old female that presents to the ED for evaluation of headache and dizziness. Patient was properly examined and was found to have signs and symptoms of unclear etiology. She does appear to have a rash appears to be almost herpetic in nature. Possible shingles versus impetigo. I had my attending Dr. Art evaluated the patient as he evaluated her 2 days ago and also about her. He evaluated her and agrees that the rash appears to be possible herpetic versus impetigo. He does recommend some labs and imaging and consult with Dr. Conklin or whoever is on-call for Dr. Otoole. Labs and imaging were essentially unremarkable. She does have a little leukocytosis. This was discussed in my attending Dr. Art for agrees to it to speak with Dr. Conklin for further evaluation if needed. I spoke with Dr. Conklin who was made aware of all findings and recommends that the patient can follow-up outpatient with Dr. Barfield tomorrow. He states that the patient can be treated with acyclovir and antibiotics if needed. Patient was given morphine here in the ED and has had no symptoms since. No other medical issues reported. This was discussed with Dr. Art who agrees the patient can be discharged. Patient and family were encouraged to follow with Dr. Shaffer tomorrow for further evaluation to hopefully address some of her concerns. See ED if worsening symptoms. Follow up with PCP. Diagnosis Primary Impression: Shingles rash Qualified Codes: B02.9 - Zoster without complications Additional Impressions: Impetigo Headache Qualified Codes: R51 - Headache Patient Instructions: General Instructions, Narcotic given in the ED Additional Instructions: Follow-up with Dr. Barfield tomorrow. Take antibiotics as prescribed. Take the pain medication prescribed to you 2 days ago to help with her headache. See ED worsening symptoms. Follow with PCP. Med/Other Pt SpecificInfo: Prescription(s) given Scripts Mupirocin Topical (Mupirocin Topical) 2 % Oint 1 APPLIC TOPICAL BID for Mgmt Bacterial Infection, #22 GM 0 Refills Prov: Arcenio Bailey MD 05/12/17 Acyclovir (Acyclovir) 800 Mg Tab 800 MG PO 5 TIMES A DAY for Mgmt Viral Infection for 7 Days, TAB 0 Refills Prov: Arcenio Bailey MD 05/12/17 Clindamycin (Clindamycin) 150 Mg Cap 300 MG PO Q8HR for Infection for 10 Days, CAP 0 Refills Prov: Arcenio Bailey MD 05/12/17 Disposition: 01 DISCHARGE HOME Condition: Stable Delta Chand May 12, 2017 18:11
[2017-05-12 18:47] LABS: INTERNATIONAL NORMALIZED RATIO 1.1 RATIO; PROTHROMBIN TIME - PATIENT 10.7 SEC (9.8-11.6)
--- NOTE | 2017-05-13 18:58 | EKG ---
Date Performed: 05/12/2017 Time Performed: 15:24:15 PTAGE: 46 years EKG: Sinus rhythm NORMAL ECG PREVIOUS TRACING : 03/23/2017 07.23 Compared to prior tracing no significant change DOCTOR: Pamela Dean Interpretating Date/Time 05/13/2017 18:56:57
[2017-05-22] MEDS ORDERED: DEXA1TAB PO (16:45)
== END 2017-05-12 18:44 | disposition home or self-care (01) ==
LOC: NEPC 14:12
DX: B02.9 Zoster without complications (principal); L01.00 Impetigo, unspecified; R51 Headache; R42 Dizziness and giddiness; Z85.6 Personal history of leukemia
CPT/HCPCS: 70250; 70450; 71045; 72040; 74018; 80053; 83690; 83735; 84443; 85025; 85610; 85730; 86140; 87040; 93005; 96374; 96375; 99285; J2270; J2405

== ENCOUNTER 2018-01-10 02:35 | Inpatient (IN) ==
[2018-01-10] MEDS ORDERED: Morphine Sulfate Inj 2 MG/ML Vial IV.PUSH ONE (04:21)
--- NOTE | 2018-01-10 04:37 | ED ---
HPI General Chief complaint: Headache Stated complaint: Headache Time Seen by Provider: 01/10/18 04:07 History of Present Illness HPI narrative: Ms. 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 The patient had similar lumps in the past which preceded her meningioma diagnoses. The patient has associated headache, intermittent dizziness and difficulty walking. She denies fever, chills, abdominal pain, SOB. Related Data Home Medications Medication Instructions Recorded Confirmed cetirizine [Zyrtec] 10 mg PO DAILY 01/10/18 01/10/18 gabapentin 100 mg PO TID 01/10/18 01/10/18 ranitidine HCl 150 mg PO DAILY 01/10/18 01/10/18 simvastatin 10 mg PO QPM 01/10/18 01/10/18 Allergies Allergy/AdvReac Type Severity Reaction Status Date / Time sulfamethoxazole Allergy Intermediate Hives Unverified 01/10/18 04:28 trimethoprim Allergy Intermediate Hives Unverified 01/10/18 04:28 Review of Systems ROS: all other systems reviewed are negative ON LICENSE OF [facility] Medical History Medical History Brain tumor (Acute) Dermoid cyst of both ovaries (Acute) Hx of headache (Acute) Stroke (Acute) Surgical History Surgical History Hx of breast reduction, elective (Acute) Social History Social History Substance History: No History of Abuse Smoking Status: Former smoker How Often Do You Have a Drink Containing Alcohol: Monthly or less Recent Travel in [facility] within the Last 8 Weeks: No Recent Out of Country Travel within the Last 8 Weeks: No Immunization History Tetanus Immunization: Unsure Hx Influenza Vaccine This Season: No Exam Narrative Exam Narrative: GENERAL: Appears in no acute distress. Alert and oriented x4. SKIN: Warm and dry. Well circumscribed fluctuant mass on the forehead. HEAD: Atraumatic. Normocephalic. There is mild edema over the right frontal forehead area, nontender to palpation. EYES: Pupils equal and round. No scleral icterus. No injection or drainage. ENT: No nasal bleeding or discharge. Mucous membranes pink and moist. NECK: Trachea midline. No JVD. CARDIOVASCULAR: Regular rate and rhythm. RESPIRATORY: No accessory muscle use. Clear to auscultation. Breath sounds equal bilaterally. GASTROINTESTINAL: Abdomen soft, non-tender, nondistended. Hepatic and splenic margins not palpable. MUSCULOSKELETAL: Extremities without clubbing, cyanosis, or edema. No obvious deformities. NEUROLOGICAL: Awake and alert. No obvious cranial nerve deficits. Motor grossly within normal limits. Five out of 5 muscle strength in the arms and legs. Normal speech. No pronator drift. PSYCHIATRIC: Appropriate mood and affect; insight and judgment normal. Course Initial Documented Vital Signs Temperature 97.8 F 01/10/18 02:44 Pulse Rate 64 01/10/18 02:44 Respiratory Rate 16 01/10/18 02:44 Blood Pressure 115/55 L 01/10/18 02:44 Pulse Oximetry 94 L 01/10/18 02:44 Last Documented Vital Signs Temperature 97.8 F 01/10/18 02:44 Pulse Rate 61 01/10/18 03:40 Respiratory Rate 16 01/10/18 03:40 Blood Pressure 104/52 L 01/10/18 03:40 Pulse Oximetry 99 01/10/18 03:40 Medical Decision Making MDM Narrative Medical decision making narrative: CAT scan shows a recurrence of her brain tumor, Decadron was ordered for the patient. Case was discussed with Dr. Cha , neurosurgery on-call, who is planning to see the patient. Case is discussed with interface analyst for admission. Aggregate critical care time was 30 minutes. Time to perform other separately billable procedures was not included in the critical care time. My time did not include minutes spent treating any other patients simultaneously or on activities that did not directly contribute to the patient's treatment. The services I provided to this patient were to treat and/or prevent clinically significant deterioration that could result in: Worsening intracranial tumor, increased ICP, herniation, I provided critical care services requiring my management, as noted below: Chart data review, documentation time, medication orders and management, vital sign assessments/reviewing monitor data, ordering and reviewing lab tests, ordering and interpreting/reviewing x-rays and diagnostic studies, care of the patient and discussion of the patient with the admitting physicians. Medical Screen Exam Complete: Yes Emergency Medical Condition: Yes Differential Diagnosis Differential Diagnosis: Shunt failure versus resurgence of tumor versus acute on chronic headaches Lab Data Lab results reviewed: Yes I reviewed the patient's lab results. Result diagrams: 01/10/18 04:55 01/10/18 04:55 POC Results POC Urine Results Negative Lab Results 01/10/18 01/10/18 01/10/18 Range/Units 04:55 04:55 04:55 WBC 7.7 (4.0-11.0) th/mm3 RBC 4.54 (4.00-5.30) mil/mm3 Hgb 12.6 (11.6-15.3) gm/dL Hct 38.0 (35.0-46.0) % MCV 83.7 (80.0-100.0) fL MCH 27.8 (27.0-34.0) pg MCHC 33.3 (32.0-36.0) % RDW 18.2 H (11.6-17.2) % Plt Count 270 (150-450) th/mm3 MPV 7.7 (7.0-11.0) fL Neut % (Auto) 52.6 (16.0-70.0) % Lymph % (Auto) 38.9 (9.0-44.0) % Garvin % (Auto) 4.7 (0.0-8.0) % Eos % (Auto) 2.8 (0.0-4.0) % Baso % (Auto) 1.0 (0.0-2.0) % Neut # (Auto) 4.1 (1.8-7.7) th/mm3 Lymph # (Auto) 3.0 (1.0-4.8) th/mm3 Garvin # (Auto) 0.4 (0.0-0.9) th/mm3 Eos # (Auto) 0.2 (0.0-0.4) th/mm3 Baso # (Auto) 0.1 (0.0-0.2) th/mm3 WBC Differential . Differential Comment Auto diff final PT 11.1 (9.8-11.6) sec INR 1.1 Ratio APTT 25.2 (24.3-30.1) sec Sodium 146 H (136-145) meq/L Potassium 4.4 (3.5-5.1) meq/L Chloride 111 H (98-107) meq/L Carbon Dioxide 27.8 (21.0-32.0) meq/L Anion Gap 7 (5-15) meq/L BUN 14 (7-18) mg/dL Creatinine 0.83 (0.50-1.00) mg/dL Estimated GFR 73 L (>89) mL/min Random Glucose 95 (74-106) mg/dL Calcium 9.4 (8.5-10.1) mg/dL Imaging Data Attestation: I personally reviewed and interpreted this imaging study as follows : Radiologist's impression: Head CT 01/10/18 04:20 CONCLUSION: 1. Evidence of tumor recurrence with greater than 4.5 cm right frontal mass extending around the falx and into the anterior corpus callosum. There is a second new enhancing nodule along the anterior right falx. 2. Effacement of both frontal horns with right ventriculostomy catheter stable in position. Discharge Plan Discharge Disposition Patient Disposition: 30 Still Patient Discharge Condition Condition: Critical Discharge Details Anticipated Discharge Date: 01/10/18 Diagnosis: Brain tumor Physicians Team ED Provider: Julio Malagon Primary Care Provider: Isaak Chacon Rxs /Orders / Referrals /Forms Prescriptions: No Action gabapentin 100 mg Capsule 100 mg PO TID RF: 0 cetirizine [Zyrtec] 10 mg Capsule 10 mg PO DAILY RF: 0 simvastatin 10 mg Tablet 10 mg PO QPM RF: 0 ranitidine HCl 150 mg Capsule 150 mg PO DAILY RF: 0 Status ED Status: With Doctor
[2018-01-10 05:09] LABS: Baso # (Auto) 0.1 th/mm3 (0.0-0.2); Eos # (Auto) 0.2 th/mm3 (0.0-0.4); Eos % (Auto) 2.8 % (0.0-4.0); Hemoglobin 12.6 gm/dL (11.6-15.3); Lymph % (Auto) 38.9 % (9.0-44.0); Mean Corpuscular HGB Conc 33.3 % (32.0-36.0); Mean Corpuscular Hemoglobin 27.8 pg (27.0-34.0); Mean Corpuscular Volume 83.7 fL (80.0-100.0); Mean Platelet Volume 7.7 fL (7.0-11.0); Mono # (Auto) 0.4 th/mm3 (0.0-0.9); Mono % (Auto) 4.7 % (0.0-8.0); Neut # (Auto) 4.1 th/mm3 (1.8-7.7); Neut % (Auto) 52.6 % (16.0-70.0); Platelet Count 270 th/mm3 (150-450); Red Blood Count 4.54 mil/mm3 (4.00-5.30); Red Cell Distribution Width 18.2 % (11.6-17.2); White Blood Count 7.7 th/mm3 (4.0-11.0)
[2018-01-10 05:20] LABS: Activated Partial Thrombo Time 25.2 sec (24.3-30.1); INR 1.1 Ratio; Prothrombin Time 11.1 sec (9.8-11.6)
[2018-01-10 05:32] LABS: Calcium 9.4 mg/dL (8.5-10.1); Carbon Dioxide 27.8 meq/L (21.0-32.0); Potassium 4.4 meq/L (3.5-5.1)
--- NOTE | 2018-01-10 06:51 | CT ---
EXAM DATE: 01/10/2018 6:39 AM EDT AGE/SEX: 47 years / Female INDICATIONS: Chronic headaches. CLINICAL DATA: This is the patient's initial encounter. Patient reports that signs and symptoms have been present for 1 day and indicates a pain score of 5/10. MEDICAL/SURGICAL HISTORY: Cerebrovascular disease. History of brain tumor. Craniotomy. Shunt place ment. RADIATION DOSE: 56.79 CTDI (mGy) COMPARISON: [facility] [place], CT BRAIN W & W/O CONTRAST, 05/10/2017. [facility] [place], CT BRAIN W/O CONTRAST, 03/22/2017. . TECHNIQUE: Axial images of the head were acquired without contrast and after intravenous administrat ion of 70 ml Omnipaque 350 (iohexol) nonionic water-soluble contrast as a single exam dose. Using automated exposure control and adjustment of the mA and/or kV according to patient size, radiation do se was kept as low as reasonably achievable to obtain optimal diagnostic quality images. DICOM forma t image data is available electronically for review and comparison. FINDINGS: Patient has undergone bilateral craniotomy and placement of right ventriculostomy. Examination is abn ormal, with a large enhancing mass in the right frontal region measuring 4.6 x 2.8 cm. The mass surro unds the falx and extends to the left of the midline with the left component measuring 3.0 x 0.7 cm. There is a second enhancing mass in the high convexity right frontal region adjacent to the falx marija uring 11 mm. The anterior falx is deviated to the left 7 mm. There is effacement of both frontal horn s. The ventriculostomy catheter tip is near the left foramen of Monro, similar to prior CT. There is encephalomalacia in the right frontal region similar to prior exam. The appearance of the left frontoparietal craniotomy with graft plate and right frontal parietal cran iotomy with bone flap is stable in appearance to prior examination. The posterior fossa structures are intact.. CONCLUSION: 1. Evidence of tumor recurrence with greater than 4.5 cm right frontal mass extending around the fal x and into the anterior corpus callosum. There is a second new enhancing nodule along the anterior ri ght falx. 2. Effacement of both frontal horns with right ventriculostomy catheter stable in position. Electronically signed by: Larry Muller MD 01/10/2018 6:50 AM EDT
[2018-01-10] MEDS ORDERED: Dexamethasone Inj 20 MG/5 ML Vial IV.PUSH ONE (07:22)
[2018-01-10] MEDS ORDERED: Bupivacaine/Epinephrine 0.5% Inj 50 ML Vial ONE (08:30)
[2018-01-10] MEDS ORDERED: Thrombin Topical Soln 5,000 UNIT Vial TOPICAL ONE (08:30)
[2018-01-10] MEDS ORDERED: Lidocaine 1% Inj 50 ML Vial ONE (08:31)
--- NOTE | 2018-01-10 08:43 | P.CONNS ---
History of Present Illness Service: ED Consult date: 01/10/18 Requesting Physician: Brennan Jacobson Reason for Consult: right frontal tumor recurrence Primary Care Provider: Isaak Chacon Family Provider: Isaak Chacon Chief Complaint: lump on forehead History of Present Illness: 47yoF with headache x 2 weeks, lump developing in right forehead x 1 day. 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 This would be her 4th craniotomy, last [address] Leonard where her shunt was moved to the right side at the same time. She has had an MRI in 07/2017 showing a small right parafalcine anterior meningioma which appears to have significantly grown on the CT with contrast obtained today and invaded through the bone, involving the sinus. She is not working currently, present with her mother, who is her medical power of donor specialist--both signed consent today. Not on blood thinners or seizure medications. PMFSH - History History Provided By: Patient - Medical History Medical History: Medical History (Last Reviewed 01/10/18 @ 07:30 by Julio Malagon MD) Brain tumor Dermoid cyst of both ovaries Hx of headache Stroke - Surgical History Surgical History: Surgical History (Last Reviewed 01/10/18 @ 07:30 by Julio Malagon MD) Hx of breast reduction, elective - Tobacco History Tobacco Use In Past 30 Days: No Smoking Status: Former smoker - Alcohol History How Often Do You Have a Drink Containing Alcohol: Monthly or less - Substance Use History Substance History: No History of Abuse - Travel History Recent Travel in the [place] Within the Last 8 Weeks: No Recent Travel Out of the Country Within the Last 8 Weeks: No - Immunization History Tetanus Immunization: Unsure Hx Influenza Vaccine This Season: No Medications and Allergies Active Medications: Active Medications Sodium Chloride (Ns Flush) 2 ml IV.FLUSH PRN PRN PRN Reason: FLUSH AFTER USING IV ACCESS Allergies Allergy/AdvReac Type Severity Reaction Status Date / Time sulfamethoxazole Allergy Intermediate Hives Verified 01/10/18 07:50 trimethoprim Allergy Intermediate Hives Verified 01/10/18 07:50 Home Medications Medication Instructions Recorded Confirmed Type cetirizine [Zyrtec] 10 mg PO DAILY 01/10/18 01/10/18 History gabapentin 100 mg PO TID 01/10/18 01/10/18 History ranitidine HCl 150 mg PO DAILY 01/10/18 01/10/18 History simvastatin 10 mg PO QPM 01/10/18 01/10/18 History Exam Vital signs: Vital Signs 01/10/18 02:44 01/10/18 03:40 01/10/18 07:00 Temperature 97.8 F Pulse Rate 64 61 57 L Respiratory Rate 16 16 19 Blood Pressure 115/55 L 104/52 L 106/54 L Pulse Oximetry 94 L 99 97 Intake & Output 01/09/18 01/10/18 01/10/18 18:59 06:59 18:59 Weight 70 kg Narrative: Alert and oriented to person, not date (baseline), and place (x2) PERRL. EOMI. Face symmetric, tongue midline (CN II-XII intact) Motor 5/5 UE/LE Reflexes symmetric physiologic Right frontal scalp slightly elevated. Behind her hairline, her shunt valve can be palpated. Incisions on the left frontal region visible behind hairline. Results - Laboratory Findings CBC and BMP: 01/10/18 04:55 01/10/18 04:55 Abnormal lab findings: Abnormal Labs 01/10/18 01/10/18 04:55 04:55 RDW 18.2 H Sodium 146 H Chloride 111 H Estimated GFR 73 L - Diagnostic Findings Additional findings: head CT shows recurrent right frontal lesion measuring 3x3cm crossing midline and ?arising from falx anteriorly. perilesional edema. extending through bone to scalp anteriorly Assessment and Plan - Plan 47yoF with recurrent meningioma right anterior parafalcine region, history of numerous operations (this would be 4th) and WINDOW CASER shunt due to childhood leukemia and XRT, former [facility] patient. Plan: OR today to resect right frontal lesion (bicoronal incision may be needed to incorporate prior incisions). Preservation of shunt in its location. MRI Brain and shunt series prior to surgery. ICU post op. train caller to surgery: Decadron 10mg IV Keppra 1gm IV load Mannitol on hand (0.5mg/kg) Type and screen given proximity to sagittal sinus Horseshoe Post-op Possibly keep intubated postop-- ICU admission-- may be slow to wake up Neuro checks q1 Keppra 500mg BID Decadron taper start 4mg IV q6 Likely no further adjuvant options, but consider Rad/Onc consult in delayed fashion. Risks of surgery discussed with patient and her mother, including real risk of morbidity from sagittal sinus, including stroke and . Patient's mother understood and indicated they did not want heroic measures taken should that situation arise in the post-op period. Code Status: FULL CODE -- but patient's mother is aware of patient's fdc goals of care
[2018-01-10] MEDS ORDERED: Gelatin Size 100 Topical Foam ONE (08:45)
[2018-01-10] MEDS ORDERED: fentaNYL Citrate Inj 250 MCG/5 ML Ampul ONE (08:50)
--- NOTE | 2018-01-10 08:52 | XR ---
EXAM DATE: 01/10/2018 8:49 AM EDT AGE/SEX: 47 years / Female INDICATIONS: Shunt patency. CLINICAL DATA: This is the patient's initial encounter. Patient reports that signs and symptoms have been present for 1 day and indicates a pain score of 0/10. MEDICAL/SURGICAL HISTORY: . Cerebrovascular disease. History of brain tumor . Craniotomy. Shun t placement COMPARISON: [facility] [place], SHUNT SERIES, 05/12/2017. . FINDINGS: Examination includes two-view skull, two-view C-spine, and frontal views of the chest and abdomen. Ventriculostomy shunt tip is projected in the midline . The alignment of the tubing with the reser voir is maintained without evidence of separation. The shunt tubing has a normal course through the neck and chest without discontinuity or kink. The shunt tubing is coiled in the abdomen without displacement of the bowel about the distal tip. CONCLUSION: Intact shunt Electronically signed by: Vasyl Valenzuela MD 01/10/2018 8:50 AM EDT
[2018-01-10] MEDS ORDERED: Acetaminophen 325 MG Tablet PO PRN (09:18)
[2018-01-10] MEDS ORDERED: Bisacodyl 10 MG Supp RECTAL PRN (09:18)
[2018-01-10] MEDS ORDERED: Chlorhexidine Gluconate 2% 1 Pack (2 Cloths) TOPICAL ONE (09:51)
[2018-01-10] MEDS ORDERED: Metoprolol Tartrate 25 MG Tablet PO ONE (09:51)
[2018-01-10] MEDS ORDERED: Sodium Chlor 0.9% Inj 500 ML IV.SIG SCH (10:00)
[2018-01-10] MEDS ORDERED: Propofol Inj 500 MG/50 ML Vial ONE (13:02)
--- NOTE | 2018-01-10 13:53 | ECG ---
Date Performed: 01/10/2018 Time Performed: 08:52:30 PTAGE: 47 years EKG: SINUS BRADYCARDIA LOW QRS VOLTAGE IN PRECORDIAL LEADS BORDERLINE ECG Since the PREVIOUS TRACING , no significant change noted PREVIOUS TRACIN05/12/2017 15.24 DOCTOR: Antonia Zavala Interpretating Date/Time 01/10/2018 13:52:32
--- NOTE | 2018-01-10 13:56 | P.OP ---
- Preoperative Diagnosis (1) Brain tumor - Postoperative Diagnosis (1) Brain tumor Date of procedure: 01/10/18 Procedure: Right frontal craniotomy and re-resection of meningioma Anesthesia: JOSEFINAA Surgeon: Jun Cha MD Vacation Planner: Junior Arteaga Estimated blood loss (mL): 100 Operation and Findings: Indications: This is a 47 year old woman with recurrent right frontal meningioma (last operation 04/[address] Leonard, with right frontal VPS placement ). She has had recurrence of grade II meningioma in the frontal region with headaches, edema, midline shift. Re-resection is indicated. Description of Procedure: Patient was brought to [facility] and the procedure was done under general anesthesia. Carlos catheter and appropriate lines were placed. Head was placed on a donut and the right frontal region was clipped, then prepped and draped in the usual sterile fashion. Old incision was marked, the infiltrated with local , then incised sharply. Care was taken to protect the old shunt in the middle of the flap. The flap was thin and two areas of small dehiscence were noted in the middle. The flap was elevated and adryan clips were applied to the wound edges. Old bone flap identified and the shunt within it was preserved. The anterior cranial plating flaps were released and a new trough was cut from Coral's point laterally and medially to open part of the old bone flap, but still preserving the shunt in place. Dura was opened sharply anterior to Coral's point and reflected anteriorly. Tumor was noted in scalp and sent as a separate sample but the bone did not look obviously involved. Dura was resected with tumor and dissection carried deep and anteriorly to separate plane of the brain with tumor, which was not always obvious. Tumor extended deep to falx and this was resected. It did not appear obviously arising from the falx and the general nature of the dura was thick even behind our resection. Adequate hemostasis was assured with bipolar cautery, surgiflo and thrombin soaked gelfoam. Dural substitue was replaced and bone flap replaced with the Claier plating. Wound closed carefully in layers with interrupted 2- 0 Vicryl for galea and jorge for skin. In places where the skin looked tenuous, vertical mattress nylon suture was used. Plan to remain intubated postop in ICU for extubation later vs. next morning. Neuro checks q1. Keppra 500mg BID Decadron 4mg IV q6 Imaging pending results of neuro exam. Wound sutures/jorge to remain for 3 weeks.
[2018-01-10] MEDS ORDERED: fentaNYL Citrate Inj 100 MCG/2 ML Ampul IV.PUSH PRN (14:07)
[2018-01-10] MEDS ORDERED: Propofol 1000 mg/100 ml Inj 1,000 MG/100 ML BOTTLE IV.CONT PRN (14:21)
--- NOTE | 2018-01-10 15:11 | P.PNNS ---
Subjective Interval history: Post op-- on sedation, weaning propofol, f/c both lower extremities right > left , PERRL, sticks out tongue, nods appropriately Physical Exam Vital signs: Vital Signs 01/10/18 02:44 01/10/18 03:40 01/10/18 07:00 Temperature 97.8 F Pulse Rate 64 61 57 L Respiratory Rate 16 16 19 Blood Pressure 115/55 L 104/52 L 106/54 L Pulse Oximetry 94 L 99 97 01/10/18 14:00 01/10/18 14:43 Temperature 97.6 F Pulse Rate 89 Respiratory Rate 12 12 Blood Pressure 110/54 L Pulse Oximetry 100 100 Intake & Output 01/09/18 01/10/18 01/10/18 18:59 06:59 18:59 Intake Total 1500 / 1500 Output Total 1050 / 1050 Balance 450 / 450 Weight 70 kg Intake: IV 1000 / 1000 LR 1000 mL Inj 1,000 ML @ 30 1000 / 1000 mls/hr IV.SIG .Q24H LAQUITA Rx#: [id number] Anesthesia Amount 500 / 500 Output: Estimated Blood Loss 300 / 300 Urine Amount (Catheter) 750 / 750 Indwelling Urethral Catheter 750 / 750 - Urinary Catheter Management Indwelling Urethral Catheter Cath placed during this visit: yes Reason for continuing: Hourly intake/output Insertion date: 01/10/18 Insertion time: 10:16 Assessment and Plan - Plan 47yoF with right frontal craniotomy on 01/10 for recurrent grade II meningioma right anterior parafalcine region, history of numerous operations (this would be 4th, last 04/2017) and 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 Plan: Following commands-- if she wakes up much more off sedation, consider extubation later this evening vs. tomorrow morning Neuro checks q1 Keppra 500mg BID Decadron taper 4mg IV q6 Likely no further adjuvant options, but consider Rad/Onc consult in delayed fashion. Patient's mother indicated they did not want heroic measures taken should that situation arise in the post-op period.
[2018-01-10 18:19] LABS: ABG Base Excess -2.7 mmol/L (-2-2); ABG PCO2 35 mmHg (38-42); ABG PO2 103 mmHg (61-120)
--- NOTE | 2018-01-10 19:15 | P.HPCC ---
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 Patient presented to the ER with complaint of headaches dizziness difficulty walking and"recurrence of 1 of those when she lumps over her forehead". Similar symptoms previously have preceded her meningioma diagnoses. Patient underwent head CT which showed right frontal neoplasm with HOME HEALTH NURSE shunt in place. She was evaluated by neurosurgery in the ER and taken to the OR for craniotomy and meningioma resection which she tolerated well and was subsequently transferred to the ICU kept orally intubated on mechanical ventilation. I evaluated the patient following her arrival to the ICU after surgery. I discussed the case in detail with Dr. Cha her neurosurgeon. History is obtained by reviewing records and discussion with neurosurgery. Inpatient Certification: I certify that the inpatient services were ordered in accordance with Medicare regulations governing the order. This includes certification that hospital inpatient services are reasonable and necessary and in the case of services not specified as inpatient-only under 42 CFR 419.22(n), that they are appropriately provided as inpatient services in accordance to with the 2-midnight benchmark under 43 CFR 412.3(e) Estimated Total Length of Stay (Days): 5 Plans for Post Hospital Care: Not yet determined Review of Systems unobtainable due to endotracheal tube PMFSH - History History Provided By: Family Member - Medical History Medical History: Medical History (Last Reviewed 01/10/18 @ 07:30 by Julio Malagon MD) Brain tumor Dermoid cyst of both ovaries Hx of headache Stroke - Surgical History Surgical History: Surgical History (Last Reviewed 01/10/18 @ 07:30 by Julio Malagon MD) Hx of breast reduction, elective - Tobacco History Second Hand Smoke Exposure: No Tobacco Use In Past 30 Days: No Smoking Status: Former smoker - Alcohol History How Often Do You Have a Drink Containing Alcohol: Monthly or less - Substance Use History Substance History: No History of Abuse - Travel History Recent Travel in the [place] Within the Last 8 Weeks: No Recent Travel Out of the Country Within the Last 8 Weeks: No - Immunization History Tetanus Immunization: Unsure Hx Influenza Vaccine This Season: No Medications and Allergies Active Medications: Active Medications Acetaminophen (Tylenol) 650 mg PO Q6H PRN PRN Reason: PAIN 1-10 AND/OR FEVER >101F Al Hydroxide/Mg Hydroxide (Milk Of Magnesia Liq) 30 ml PO Q12H PRN PRN Reason: Mild Constipation Albuterol (Duoneb Neb (Prn)) 1 ampul NEB Q2HR NEB PRN PRN Reason: WHEEZING Bisacodyl (Dulcolax Supp) 10 mg RECTAL DAILY PRN PRN Reason: SEVERE CONSITIPATION Chlorhexidine Gluconate (Chlorhexidine 2% Cloth) 3 pack TOPICAL DAILY@0400 [facility] Stop: 01/16/18 03:59 Chlorhexidine Gluconate (Chlorhexidine 2% Cloth) 3 pack TOPICAL DAILY@0400 PRN PRN Reason: Extra cloth needed Stop: 01/16/18 03:59 Dexamethasone Sodium Phosphate (Decadron Inj) 4 mg IV.PUSH Q6H [facility] Last Admin: 01/10/18 16:46 Dose: 4 mg Famotidine (Pepcid Pf Inj) 20 mg IV.PUSH Q12HR [facility] Fentanyl Citrate (Fentanyl Inj) 50 mcg IV.PUSH Q2H PRN PRN Reason: PAIN SCALE 5-10 Last Admin: 01/10/18 17:11 Dose: 50 mcg Potassium Chloride/Sodium Chloride (Ns + Kcl 20 Meq Inj) 1,000 mls @ 100 mls/ hr IV.CONT .Q10H [facility] Last Admin: 01/10/18 14:59 Dose: Not Given Lactated Ringer's (Lr 1000 Ml Inj) 1,000 mls @ 30 mls/hr IV.SIG .Q24H [facility] Stop: 01/11/18 09:59 Last Infusion: 01/10/18 12:30 Dose: Infused Sodium Chloride (Ns Inj) 500 mls @ 30 mls/hr IV.SIG .Q10H [facility] Last Admin: 01/10/18 14:57 Dose: Not Given Levetiracetam 500 mg/ Sodium (Chloride) 105 mls @ 400 mls/hr IV.SIG Q12H [facility] Propofol (Diprivan 1000 Mg/100 Ml Inj) 1,000 mg in 100 mls @ 2.1 mls/hr IV.CONT TITRATE PRN; Protocol PRN Reason: Per Protocol Lactulose (Lactulose Liq) 30 ml PO DAILY PRN PRN Reason: SEVERE CONSITIPATION Metoclopramide HCl (Reglan Inj) 10 mg IV.PUSH Q6H PRN; Protocol PRN Reason: NAUSEA OR VOMITING Ondansetron HCl (Zofran Inj) 4 mg IV.PUSH Q6H PRN PRN Reason: NAUSEA OR VOMITING Senna/Docusate Sodium (Lori-Colace) 1 tab PO BID [facility] Sennosides (Senokot) 17.2 mg PO Q12H PRN PRN Reason: Moderate Constipation Sodium Chloride (Ns Flush) 2 ml IV.FLUSH BID [facility] Sodium Chloride (Ns Flush) 2 ml IV.FLUSH UNSCH PRN PRN Reason: FLUSH AFTER USING IV ACCESS Allergies Allergy/AdvReac Type Severity Reaction Status Date / Time sulfamethoxazole Allergy Intermediate Hives Verified 01/10/18 07:50 trimethoprim Allergy Intermediate Hives Verified 01/10/18 07:50 Home Medications Medication Instructions Recorded Confirmed Type cetirizine [Zyrtec] 10 mg PO DAILY 01/10/18 01/10/18 History gabapentin 100 mg PO TID 01/10/18 01/10/18 History ranitidine HCl 150 mg PO DAILY 01/10/18 01/10/18 History simvastatin 10 mg PO QPM 01/10/18 01/10/18 History Results - Labs CBC & Chem 7: 01/10/18 04:55 01/10/18 04:55 Labs: Short CBC 01/10/18 Range/Units 04:55 WBC 7.7 (4.0-11.0) th/mm3 Hgb 12.6 (11.6-15.3) gm/dL Hct 38.0 (35.0-46.0) % Plt Count 270 (150-450) th/mm3 [facility] 01/10/18 04:55 Sodium 146 H Potassium 4.4 Chloride 111 H Carbon Dioxide 27.8 BUN 14 Creatinine 0.83 Calcium 9.4 - Imaging Impressions Head CT 01/10/18 04:20 CONCLUSION: 1. Evidence of tumor recurrence with greater than 4.5 cm right frontal mass extending around the falx and into the anterior corpus callosum. There is a second new enhancing nodule along the anterior right falx. 2. Effacement of both frontal horns with right ventriculostomy catheter stable in position. Shunt Study 01/10/18 07:58 CONCLUSION: Intact shunt Exam Vital signs: Vital Signs 01/10/18 02:44 01/10/18 03:40 01/10/18 07:00 Temperature 97.8 F Pulse Rate 64 61 57 L Respiratory Rate 16 16 19 Blood Pressure 115/55 L 104/52 L 106/54 L Pulse Oximetry 94 L 99 97 01/10/18 14:00 01/10/18 14:43 01/10/18 15:00 Temperature 97.6 F Pulse Rate 89 84 Respiratory Rate 12 12 12 Blood Pressure 110/54 L 110/59 L Pulse Oximetry 100 100 100 01/10/18 16:00 01/10/18 16:21 01/10/18 17:00 Temperature Pulse Rate 83 80 Respiratory Rate 12 12 12 Blood Pressure 116/48 L 117/49 L Pulse Oximetry 100 100 01/10/18 18:00 Temperature Pulse Rate 87 Respiratory Rate 12 Blood Pressure 124/52 L Pulse Oximetry 100 Intake & Output 01/10/18 01/10/18 01/11/18 06:59 18:59 06:59 Intake Total 1500 / 1500 Output Total 1400 / 1400 Balance 100 / 100 Weight 70 kg Intake: IV 1000 / 1000 LR 1000 mL Inj 1,000 ML @ 30 1000 / 1000 mls/hr IV.SIG .Q24H [facility] Rx#: [id number] Oral 0 / 0 Anesthesia Amount 500 / 500 Output: Estimated Blood Loss 300 / 300 Urine Amount (Catheter) 1100 / 1100 Indwelling Urethral Catheter 1100 / 1100 Narrative: HEENT/ Neuro: Dressing over craniotomy site clean dry and intact, sedated, orally intubated, pupils bilaterally constricted, equal, pallor present, no icterus, tongue/ mucosa moist Neck: No JVD Chest/Pulm: on mech vent, good air entry bilaterally, no wheezing or crackles CVS: S1-S2 regular, no murmur GI/abdomen: soft, nontender, bowel sounds sluggish Extremities: warm bilaterally, no edema Caprini VTE Risk Assessment Caprini VTE Risk Assessment: Moderate/High Risk (score >= 2) VTE Pharmacological Exception Reason: Intracranial lesions Caprini Risk Assessment Model: Point Value = 1 Point Value = 2 Point Value = 3 Point Value = 5 Age 41-60 Minor surgery BMI > 25 kg/m2 Swollen legs Varicose veins or History of unexplained or recurrent spontaneous Oral contraceptives or hormone replacement Sepsis (< 1 month) Serious lung disease, including pneumonia (< 1 month) Abnormal pulmonary function Acute myocardial infarction Congestive heart failure (< 1 month) History of inflammatory bowel disease Medical patient at bed rest Age 61-74 Arthroscopic surgery Major open surgery (> 45 min) Laparoscopic surgery (> 45 min) Malignancy Confined to bed (> 72 hours) Immobilizing plaster cast Central venous access Age >= 75 History of VTE Family history of VTE Factor V Leiden Prothrombin [id number] Lupus anticoagulant Anticardiolipin antibodies Elevated serum homocysteine Heparin-induced thrombocytopenia Other congenital or acquired thrombophilia Stroke (< 1 month) Elective arthroplasty Hip, pelvis, or leg fracture Acute spinal cord injury (< 1 month) Prophylaxis Regimen: Total Risk Factor Score Risk Level Prophylaxis Regimen 0-1 Low Early ambulation 2 Moderate Order ONE of the following: *Sequential Compression Device (SCD) *Heparin 5000 units SQ BID 3-4 Higher Order ONE of the following medications: *Heparin 5000 units SQ TID *Enoxaparin/Lovenox 40 mg SQ daily (WT < 150 kg, CrCl > 30 mL/min) *Enoxaparin/Lovenox 30 mg SQ daily (WT < 150 kg, CrCl > 10-29 mL/min) *Enoxaparin/Lovenox 30 mg SQ BID (WT < 150 kg, CrCl > 30 mL/min) AND/OR *Sequential Compression Device (SCD) 5 or more Highest Order ONE of the following medications: *Heparin 5000 units SQ TID (Preferred with Epidurals) *Enoxaparin/Lovenox 40 mg SQ daily (WT < 150 kg, CrCl > 30 mL/min) *Enoxaparin/Lovenox 30 mg SQ daily (WT < 150 kg, CrCl > 10-29 mL/min) *Enoxaparin/Lovenox 30 mg SQ BID (WT < 150 kg, CrCl > 30 mL/min) AND *Sequential Compression Device (SCD) Assessment and Plan - Assessment and Plan Plan: 47-year-old female with: Meningioma recurrence status post craniotomy and resection Postop respiratory failure on mechanical ventilation Plan: Neuro: Sedation with propofol, neurochecks per protocol. Keppra for seizure prophylaxis per neurosurgery. Neurosurgery following. Plan to keep sedated overnight on mechanical ventilation and possible extubation tomorrow if neurologic status permits. Continue Decadron IV. Cardiovascular: IV hydration, watch for hypotension Pulmonary: Continue mechanical ventilation, vent bundle, bronchodilators as needed. CPAP trials tomorrow to decide extubation GI/liver: N.p.o. for now. Renal/: IV hydration, strict intake output, monitor and replete electrolyte, follow BN creatinine. Endocrine: SSI for glycemic control as needed. Heme: Follow CBC Prophylaxis: Pepcid, SCDs, Subcu heparin when okay with neurosurgery. Discussed with neurosurgery, discussed with ASSISTANT SOFTBALL COACH Condition critical Time spent on critical care excluding procedures 45 minutes
[2018-01-10] MEDS: Famotidine PF Inj 20 MG/2 ML Vial IV.PUSH SCH (20:18)
[2018-01-10] MEDS: Senna/Docusate Sodium 8.6/50 MG Tablet PO SCH (21:57)
[2018-01-11] MEDS ORDERED: Chlorhexidine Gluconate 2% 1 Pack (2 Cloths) TOPICAL PRN (04:00)
[2018-01-11 04:09] LABS: Baso % (Auto) 0.1 % (0.0-2.0); Hematocrit 34.8 % (35.0-46.0); Hemoglobin 11.3 gm/dL (11.6-15.3); Lymph # (Auto) 0.8 th/mm3 (1.0-4.8); Lymph % (Auto) 6.9 % (9.0-44.0); Mean Corpuscular HGB Conc 32.5 % (32.0-36.0); Mean Corpuscular Hemoglobin 27.3 pg (27.0-34.0); Mean Corpuscular Volume 84.1 fL (80.0-100.0); Mean Platelet Volume 8.1 fL (7.0-11.0); Mono # (Auto) 0.2 th/mm3 (0.0-0.9); Mono % (Auto) 1.7 % (0.0-8.0); Neut # (Auto) 11.2 th/mm3 (1.8-7.7); Neut % (Auto) 91.3 % (16.0-70.0); Platelet Count 289 th/mm3 (150-450); Red Blood Count 4.13 mil/mm3 (4.00-5.30); Red Cell Distribution Width 18.5 % (11.6-17.2); White Blood Count 12.3 th/mm3 (4.0-11.0)
[2018-01-11] MEDS: Chlorhexidine Gluconate 2% 1 Pack (2 Cloths) TOPICAL SCH (04:18)
[2018-01-11 04:44] LABS: Alanine Aminotransferase 18 U/L (10-53); Albumin 3.3 g/dL (3.4-5.0); Alkaline Phosphatase 76 U/L (45-117); Anion Gap 12 meq/L (5-15); Aspartate Aminotransferase 9 U/L (15-37); Blood Urea Nitrogen 9 mg/dL (7-18); Calcium 8.6 mg/dL (8.5-10.1); Carbon Dioxide 22.9 meq/L (21.0-32.0); Chloride 112 meq/L (98-107); Glomerular Filtration Rate 84 mL/min (>89); Glucose,Random 152 mg/dL (74-106); Magnesium 2.1 mg/dL (1.5-2.5); Potassium 3.9 meq/L (3.5-5.1); Sodium 147 meq/L (136-145); Total Protein 6.6 g/dL (6.4-8.2)
[2018-01-11] MEDS: Senna/Docusate Sodium 8.6/50 MG Tablet PO SCH ×2 (08:57→21:46)
--- NOTE | 2018-01-11 08:59 | P.PNCC ---
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 Patient presented to the ER with complaint of headaches dizziness difficulty walking and"recurrence of 1 of those when she lumps over her forehead". Similar symptoms previously have preceded her meningioma diagnoses. Patient underwent head CT which showed right frontal neoplasm with VOCATIONAL EXAMINER shunt in place. She was evaluated by neurosurgery in the ER and taken to the OR for craniotomy and meningioma resection which she tolerated well and was subsequently transferred to the ICU kept orally intubated on mechanical ventilation. I evaluated the patient following her arrival to the ICU after surgery. I discussed the case in detail with Dr. Cha her neurosurgeon. History is obtained by reviewing records and discussion with neurosurgery. 01/11:, Easily arousable, moving all 4 extremities. Orally intubated on mechanical ventilation at the time of my evaluation this morning. Off sedation. Initiated CPAP trials. Objective Vital Signs / I&O: Vital Signs 01/10/18 14:00 01/10/18 14:43 01/10/18 15:00 Temperature 97.6 F Pulse Rate 89 84 Respiratory Rate 12 12 12 Blood Pressure 110/54 L 110/59 L Pulse Oximetry 100 100 100 01/10/18 16:00 01/10/18 16:21 01/10/18 17:00 Temperature Pulse Rate 83 80 Respiratory Rate 12 12 12 Blood Pressure 116/48 L 117/49 L Pulse Oximetry 100 100 01/10/18 18:00 01/10/18 19:00 01/10/18 20:00 Temperature 98.3 F Pulse Rate 87 86 84 Respiratory Rate 12 12 12 Blood Pressure 124/52 L 117/50 L 118/52 L Pulse Oximetry 100 100 100 01/10/18 20:53 01/10/18 21:00 01/10/18 22:00 Temperature Pulse Rate 86 89 Respiratory Rate 12 12 Blood Pressure 138/72 130/65 Pulse Oximetry 100 100 100 01/11/18 00:00 01/11/18 00:46 01/11/18 04:00 Temperature 98.8 F 98.7 F Pulse Rate 88 95 H Respiratory Rate 12 12 12 Blood Pressure 125/61 129/62 Pulse Oximetry 100 100 100 01/11/18 04:21 01/11/18 06:09 01/11/18 07:42 Temperature Pulse Rate Respiratory Rate 12 20 Blood Pressure Pulse Oximetry 100 100 100 Intake & Output 01/10/18 01/11/18 01/11/18 18:59 06:59 18:59 Intake Total 1500 / 1500 1105 / 1105 Output Total 1400 / 1400 800 / 800 Balance 100 / 100 305 / 305 Weight 78.6 kg Intake: IV 1000 / 1000 1105 / 1105 NS + KCl 20 mEq Inj 1,000 ML @ 1000 / 1000 100 mls/hr IV.CONT .Q10H [facility] Rx #:[id number] LR 1000 mL Inj 1,000 ML @ 30 1000 / 1000 mls/hr IV.SIG .Q24H [facility] Rx#: [id number] Keppra Inj 500 MG In NS Inj 100 105 / 105 ML @ 400 mls/hr IV.SIG Q12H [facility] Rx#:[id number] Oral 0 / 0 0 / 0 Anesthesia Amount 500 / 500 Output: Estimated Blood Loss 300 / 300 300 / 300 Urine Amount (Catheter) 1100 / 1100 500 / 500 Indwelling Urethral Catheter 1100 / 1100 500 / 500 Result Diagrams: 01/11/18 03:28 01/11/18 03:28 Objective Remarks: HEENT/ Neuro: Dressing over craniotomy site clean dry and intact, Drowsy, arousable, moving all extremities, orally intubated, pupils bilaterally constricted, equal, pallor present, no icterus, tongue/ mucosa moist Neck: No JVD Chest/Pulm: on mech vent, good air entry bilaterally, no wheezing or crackles CVS: S1-S2 regular, no murmur GI/abdomen: soft, nontender, bowel sounds sluggish Extremities: warm bilaterally, no edema Assessment and Plan - Assessment and Plan Plan: 47-year-old female with: Meningioma recurrence status post craniotomy and resection Postop respiratory failure on mechanical ventilation Plan: Neuro: Sedation with propofol, neurochecks per protocol. Keppra for seizure prophylaxis per neurosurgery. Neurosurgery following. Plan to keep sedated overnight on mechanical ventilation and possible extubation tomorrow if neurologic status permits. Continue Decadron IV. Cardiovascular: IV hydration, watch for hypotension Pulmonary: Continue mechanical ventilation, vent bundle, bronchodilators as needed. CPAP trials tomorrow to decide extubation GI/liver: N.p.o. for now. Renal/: IV hydration, strict intake output, monitor and replete electrolyte, follow BN creatinine. Endocrine: SSI for glycemic control as needed. Heme: Follow CBC Prophylaxis: Pepcid, SCDs, Subcu heparin when okay with neurosurgery. Discussed with neurosurgery, discussed with FERTILIZER LOADER Condition critical Time spent on critical care excluding procedures 45 minutes
[2018-01-11] MEDS: Famotidine PF Inj 20 MG/2 ML Vial IV.PUSH SCH ×2 (09:05→21:46)
--- NOTE | 2018-01-11 09:43 | P.PNNS ---
Subjective Interval history: Patient extubated this am. tolerating well. denies any pain Physical Exam Vital signs: Vital Signs 01/10/18 14:00 01/10/18 14:43 01/10/18 15:00 Temperature 97.6 F Pulse Rate 89 84 Respiratory Rate 12 12 12 Blood Pressure 110/54 L 110/59 L Pulse Oximetry 100 100 100 01/10/18 16:00 01/10/18 16:21 01/10/18 17:00 Temperature Pulse Rate 83 80 Respiratory Rate 12 12 12 Blood Pressure 116/48 L 117/49 L Pulse Oximetry 100 100 01/10/18 18:00 01/10/18 19:00 01/10/18 20:00 Temperature 98.3 F Pulse Rate 87 86 84 Respiratory Rate 12 12 12 Blood Pressure 124/52 L 117/50 L 118/52 L Pulse Oximetry 100 100 100 01/10/18 20:53 01/10/18 21:00 01/10/18 22:00 Temperature Pulse Rate 86 89 Respiratory Rate 12 12 Blood Pressure 138/72 130/65 Pulse Oximetry 100 100 100 01/11/18 00:00 01/11/18 00:46 01/11/18 04:00 Temperature 98.8 F 98.7 F Pulse Rate 88 95 H Respiratory Rate 12 12 12 Blood Pressure 125/61 129/62 Pulse Oximetry 100 100 100 01/11/18 04:21 01/11/18 06:09 01/11/18 07:42 Temperature Pulse Rate Respiratory Rate 12 20 Blood Pressure Pulse Oximetry 100 100 100 Intake & Output 01/10/18 01/11/18 01/11/18 18:59 06:59 18:59 Intake Total 1500 / 1500 1105 / 1105 Output Total 1400 / 1400 800 / 800 Balance 100 / 100 305 / 305 Weight 78.6 kg Intake: IV 1000 / 1000 1105 / 1105 NS + KCl 20 mEq Inj 1,000 ML @ 1000 / 1000 100 mls/hr IV.CONT .Q10H [facility] Rx #:[id number] LR 1000 mL Inj 1,000 ML @ 30 1000 / 1000 mls/hr IV.SIG .Q24H [facility] Rx#: [id number] Keppra Inj 500 MG In NS Inj 100 105 / 105 ML @ 400 mls/hr IV.SIG Q12H [facility] Rx#:[id number] Oral 0 / 0 0 / 0 Anesthesia Amount 500 / 500 Output: Estimated Blood Loss 300 / 300 300 / 300 Urine Amount (Catheter) 1100 / 1100 500 / 500 Indwelling Urethral Catheter 1100 / 1100 500 / 500 Narrative: E4 AOx self, hospital, not to year FC x4 symmetric and resists examiner with good strength does not cooperate with full motor assessment incision: CDI - Urinary Catheter Management Indwelling Urethral Catheter Cath placed during this visit: yes Reason for continuing: Hourly intake/output Insertion date: 01/10/18 Insertion time: 10:16 Assessment and Plan - Plan 47 yo with recurrent meningioma and known VPS POD 1 frontal craniotomy for resection [facility]) -recommend slow decadron taper (2 weeks) -will obtain post ob MRI today -normalize: dc adames, activity as tolerated, ok to be OOB with PT/OT, regular diet
[2018-01-11] MEDS ORDERED: Gadobutrol PF 7.5 MMOL/7.5 ML Vial (for RAD) IV.SIG ONE (09:52)
--- NOTE | 2018-01-11 10:21 | MR ---
EXAM DATE: 01/11/2018 10:12 AM EDT AGE/SEX: 47 years / Female INDICATIONS: Mass. CLINICAL DATA: This is the patient's initial encounter. Patient reports that signs and symptoms have been present for 1 day and indicates a pain score of 0/10. MEDICAL/SURGICAL HISTORY: Seizures. Brain tumor. CVA. Craniotomy. Hysterectomy. Breast reduc tion. COMPARISON: [facility], MR BRAIN W AND W/O CONTRAST, 07/18/2017. C, CT HEAD W & W/O CONTRAST, 8. . TECHNIQUE: Multiplanar, multisequence examination of the brain was performed without and with 7 ml Ga davist (gadobutrol) contrast as a single exam dose. FINDINGS: Cerebrum: Aberrantly in the right frontal lobe is a complex mass measuring up to 5.0 x 2.8 cm across . The mass shows some anterior nodular enhancement with significant surrounding vasogenic edema. Just posterior to the mass is an additional focal nodular area of enhancement within the falx measuring a centimeter across, new since 2017. There is shift from right to left. The edema extends to the corpu s callosum and the deep white matter tracts throughout the right frontal lobe. The septum pellucidum is shifted right to left by almost 5 mm. White Matter: Again significant vasogenic edema throughout the right frontal lobe extending also to left Posterior Fossa: There are some low signal within the right side of the brainstem and right side cere bral peduncle likely an old stroke stable since July. Diffusion Imaging: No focal areas of restricted diffusion are seen. No evidence of acute infarction . Extracranial: The visualized portions of the orbits and paranasal sinuses are unremarkable. Post Contrast: Again nodule enhancement of the anterior margin of the mass, small nodule within the falx and a small area of fusiform thickening left side of the tentorium are likely extra-axial masses . CONCLUSION: 1. Complex mostly nonenhancing mass has recurred with some nodular areas enhance of both along its a nterior lateral margin and a small nodule within the falx itself. Very impressive surrounding vasogen ic edema including some shift from right to left. The edema extends across midline through the corpus callosum into the left frontal lobe but not nearly as impressive as the right 2. Old right cerebral peduncular/ brainstem stroke Electronically signed by: Ayad Muñiz MD 01/11/2018 10:19 AM EDT
--- NOTE | 2018-01-11 11:58 | P.CON ---
History of Present Illness Service: radiation oncology Primary Care Provider: Isaak Chacon Family Provider: Isaak Chacon Chief Complaint: lump on forehead History of Present Illness: Recurrent mengioma previously resected. Maximal safe resection. Resting . 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 PMFSH - History History Provided By: Family Member - Medical History Medical History: Medical History (Last Reviewed 01/11/18 @ 07:50 by Rubin Booker) Brain tumor Dermoid cyst of both ovaries Hx of headache Stroke - Surgical History Surgical History: Surgical History (Last Reviewed 01/11/18 @ 07:50 by Rubin Booker) Hx of breast reduction, elective - Tobacco History Second Hand Smoke Exposure: Yes Tobacco Use In Past 30 Days: No Smoking Status: Former smoker Tobacco Type: Cigarettes - Alcohol History How Often Do You Have a Drink Containing Alcohol: Monthly or less - Substance Use History Substance History: No History of Abuse - Travel History Recent Travel in the [place] Within the Last 8 Weeks: No Recent Travel Out of the Country Within the Last 8 Weeks: No - Immunization History Tetanus Immunization: Unsure Hx Influenza Vaccine This Season: No Medications and Allergies Active Medications: Active Medications Acetaminophen (Tylenol) 650 mg PO Q6H PRN PRN Reason: PAIN 1-10 AND/OR FEVER >101F Al Hydroxide/Mg Hydroxide (Milk Of Magnesia Liq) 30 ml PO Q12H PRN PRN Reason: Mild Constipation Albuterol (Duoneb Neb (Prn)) 1 ampul NEB Q2HR NEB PRN PRN Reason: WHEEZING Bisacodyl (Dulcolax Supp) 10 mg RECTAL DAILY PRN PRN Reason: SEVERE CONSITIPATION Chlorhexidine Gluconate (Chlorhexidine 2% Cloth) 3 pack TOPICAL DAILY@0400 [facility] Stop: 01/16/18 03:59 Last Admin: 01/11/18 04:18 Dose: Not Given Chlorhexidine Gluconate (Chlorhexidine 2% Cloth) 3 pack TOPICAL DAILY@0400 PRN PRN Reason: Extra cloth needed Stop: 01/16/18 03:59 Dexamethasone Sodium Phosphate (Decadron Inj) 4 mg IV.PUSH Q6H [facility] Last Admin: 01/11/18 09:05 Dose: 4 mg Famotidine (Pepcid Pf Inj) 20 mg IV.PUSH Q12HR [facility] Last Admin: 01/11/18 09:05 Dose: 20 mg Fentanyl Citrate (Fentanyl Inj) 50 mcg IV.PUSH Q2H PRN PRN Reason: PAIN SCALE 5-10 Last Admin: 01/10/18 17:11 Dose: 50 mcg Potassium Chloride/Sodium Chloride (Ns + Kcl 20 Meq Inj) 1,000 mls @ 100 mls/ hr IV.CONT .Q10H [facility], [facility] Last Admin: 01/11/18 05:28 Dose: 100 mls/hr Sodium Chloride (Ns Inj) 500 mls @ 30 mls/hr IV.SIG .Q10H [facility], [facility] Last Admin: 01/10/18 14:57 Dose: Not Given Levetiracetam 500 mg/ Sodium (Chloride) 105 mls @ 400 mls/hr IV.SIG Q12H [facility], [facility] Last Infusion: 01/11/18 09:30 Dose: Infused Propofol (Diprivan 1000 Mg/100 Ml Inj) 1,000 mg in 100 mls @ 2.1 mls/hr IV.CONT TITRATE PRN; Protocol PRN Reason: Per Protocol Lactulose (Lactulose Liq) 30 ml PO DAILY PRN PRN Reason: SEVERE CONSITIPATION Metoclopramide HCl (Reglan Inj) 10 mg IV.PUSH Q6H PRN; Protocol PRN Reason: NAUSEA OR VOMITING Ondansetron HCl (Zofran Inj) 4 mg IV.PUSH Q6H PRN PRN Reason: NAUSEA OR VOMITING Senna/Docusate Sodium (Lori-Colace) 1 tab PO BID [facility], [facility] Last Admin: 01/11/18 08:57 Dose: Not Given Sennosides (Senokot) 17.2 mg PO Q12H PRN PRN Reason: Moderate Constipation Sodium Chloride (Ns Flush) 2 ml IV.FLUSH BID [facility] Last Admin: 01/11/18 09:06 Dose: 2 ml Sodium Chloride (Ns Flush) 2 ml IV.FLUSH UNSCH PRN PRN Reason: FLUSH AFTER USING IV ACCESS Allergies Allergy/AdvReac Type Severity Reaction Status Date / Time sulfamethoxazole Allergy Intermediate Hives Verified 01/10/18 07:50 trimethoprim Allergy Intermediate Hives Verified 01/10/18 07:50 Home Medications Medication Instructions Recorded Confirmed Type cetirizine [Zyrtec] 10 mg PO DAILY 01/10/18 01/10/18 History gabapentin 100 mg PO TID 01/10/18 01/10/18 History ranitidine HCl 150 mg PO DAILY 01/10/18 01/10/18 History simvastatin 10 mg PO QPM 01/10/18 01/10/18 History Physical Exam Vital signs: Vital Signs 01/10/18 14:00 01/10/18 14:43 01/10/18 15:00 Temperature 97.6 F Pulse Rate 89 84 Respiratory Rate 12 12 12 Blood Pressure 110/54 L 110/59 L Pulse Oximetry 100 100 100 01/10/18 16:00 01/10/18 16:21 01/10/18 17:00 Temperature Pulse Rate 83 80 Respiratory Rate 12 12 12 Blood Pressure 116/48 L 117/49 L Pulse Oximetry 100 100 01/10/18 18:00 01/10/18 19:00 01/10/18 20:00 Temperature 98.3 F Pulse Rate 87 86 84 Respiratory Rate 12 12 12 Blood Pressure 124/52 L 117/50 L 118/52 L Pulse Oximetry 100 100 100 01/10/18 20:53 01/10/18 21:00 01/10/18 22:00 Temperature Pulse Rate 86 89 Respiratory Rate 12 12 Blood Pressure 138/72 130/65 Pulse Oximetry 100 100 100 01/11/18 00:00 01/11/18 00:46 01/11/18 04:00 Temperature 98.8 F 98.7 F Pulse Rate 88 95 H Respiratory Rate 12 12 12 Blood Pressure 125/61 129/62 Pulse Oximetry 100 100 100 01/11/18 04:21 01/11/18 06:09 01/11/18 07:42 Temperature Pulse Rate Respiratory Rate 12 20 Blood Pressure Pulse Oximetry 100 100 100 Intake & Output 01/10/18 01/11/18 01/11/18 18:59 06:59 18:59 Intake Total 1500 / 1500 1105 / 1105 105 / 105 Output Total 1400 / 1400 800 / 800 Balance 100 / 100 305 / 305 105 / 105 Weight 78.6 kg Intake: IV 1000 / 1000 1105 / 1105 105 / 105 NS + KCl 20 mEq Inj 1,000 ML @ 1000 / 1000 100 mls/hr IV.CONT .Q10H [facility] Rx #:[id number] LR 1000 mL Inj 1,000 ML @ 30 1000 / 1000 mls/hr IV.SIG .Q24H [facility] Rx#: [id number] Keppra Inj 500 MG In NS Inj 100 105 / 105 105 / 105 ML @ 400 mls/hr IV.SIG Q12H [facility] Rx#:[id number] Oral 0 / 0 0 / 0 Anesthesia Amount 500 / 500 Output: Estimated Blood Loss 300 / 300 300 / 300 Urine Amount (Catheter) 1100 / 1100 500 / 500 Indwelling Urethral Catheter 1100 / 1100 500 / 500 - Urinary Catheter Management Indwelling Urethral Catheter Cath placed during this visit: yes Reason for continuing: Hourly intake/output Insertion date: 01/10/18 Insertion time: 10:16 Assessment and Plan - Plan follow up outpatient week or two to discuss recommendations and considerations of observation vs. re-irradiation and treatment goals and will discuss with dr. odonnell --
[2018-01-12] MEDS: Chlorhexidine Gluconate 2% 1 Pack (2 Cloths) TOPICAL SCH (05:40)
--- NOTE | 2018-01-12 07:55 | P.PNNS ---
Subjective Interval history: Patient without any issues. pain controlled. some confusion overnight per nursing Physical Exam Vital signs: Vital Signs 01/11/18 08:00 01/11/18 12:00 01/11/18 16:00 Temperature 98.6 F 98.7 F 98 F Pulse Rate 100 H 80 82 Respiratory Rate 18 20 20 Blood Pressure 134/64 118/54 L 107/60 Pulse Oximetry 100 97 96 01/11/18 19:51 01/11/18 20:00 01/12/18 00:00 Temperature 98.1 F 98.4 F Pulse Rate 84 86 Respiratory Rate 20 16 Blood Pressure 128/64 130/64 Pulse Oximetry 93 L 96 01/12/18 04:00 Temperature 97.8 F Pulse Rate 73 Respiratory Rate 16 Blood Pressure 115/69 Pulse Oximetry Intake & Output 01/11/18 01/12/18 01/12/18 18:59 06:59 18:59 Intake Total 1585 / 1585 1605 / 1605 Output Total 1750 / 1750 Balance -165 / -165 1605 / 1605 Weight 75.6 kg Intake: IV 1105 / 1105 1105 / 1105 NS + KCl 20 mEq Inj 1,000 ML @ 1000 / 1000 1000 / 1000 100 mls/hr IV.CONT .Q10H [facility] Rx #:[id number] Keppra Inj 500 MG In NS Inj 100 105 / 105 105 / 105 ML @ 400 mls/hr IV.SIG Q12H [facility] Rx#:[id number] Oral 480 / 480 Anesthesia Amount 500 / 500 Output: Urine Amount (Catheter) 1750 / 1750 Indwelling Urethral Catheter 1750 / 1750 Other: # Voids 3 Date of Last Bowel Movement 01/11/18 # Bowel Movements 0 1 Narrative: E4 AOx self, hospital, not to year FC x4 symmetric and resists examiner with good strength does not cooperate with full motor assessment incision: CDI, jorge - Urinary Catheter Management Indwelling Urethral Catheter Cath placed during this visit: yes, but has since been removed by the nurse Reason for continuing: Decision to DC catheter Insertion date: 01/10/18 Insertion time: 10:16 Removal date: 01/11/18 Removal time: 16:20 Assessment and Plan - Plan 47 yo with recurrent meningioma and known VPS POD 1 frontal craniotomy for resection -Reviewed post OP MRI: VPS in good location. small residual towards posterior aspect of resection cavity -Rad onc follow up as outpatient: due to multiple recurrences and high grade nature, would likely benefit from SRS to residual lesion -rohitra for seizure ppx (2 weeks) -recommend slow decadron taper (2 weeks) -activity as tolerated, ok to be OOB with PT/OT, regular diet -Dressing in place till saturday -Ok to transfer to floor
[2018-01-12] MEDS: Famotidine PF Inj 20 MG/2 ML Vial IV.PUSH SCH ×2 (08:12→20:59)
[2018-01-12] MEDS: Senna/Docusate Sodium 8.6/50 MG Tablet PO SCH ×2 (08:14→20:59)
[2018-01-12 09:59] LABS: Baso % (Auto) 0.3 % (0.0-2.0); Lymph # (Auto) 0.9 th/mm3 (1.0-4.8); Lymph % (Auto) 6.5 % (9.0-44.0); Mean Corpuscular HGB Conc 31.5 % (32.0-36.0); Mean Corpuscular Hemoglobin 26.9 pg (27.0-34.0); Mean Corpuscular Volume 85.4 fL (80.0-100.0); Mean Platelet Volume 8.3 fL (7.0-11.0); Mono # (Auto) 0.2 th/mm3 (0.0-0.9); Mono % (Auto) 1.7 % (0.0-8.0); Neut # (Auto) 13.2 th/mm3 (1.8-7.7); Neut % (Auto) 91.5 % (16.0-70.0); Platelet Count 274 th/mm3 (150-450); Red Blood Count 4.46 mil/mm3 (4.00-5.30); White Blood Count 14.4 th/mm3 (4.0-11.0)
[2018-01-12 10:10] LABS: Carbon Dioxide 22.1 meq/L (21.0-32.0)
[2018-01-12 10:48] LABS: Platelet Estimate Normal (Normal); Platelet Morphology Normal (Normal)
--- NOTE | 2018-01-12 12:36 | P.PNCC ---
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 Patient presented to the ER with complaint of headaches dizziness difficulty walking and"recurrence of 1 of those when she lumps over her forehead". Similar symptoms previously have preceded her meningioma diagnoses. Patient underwent head CT which showed right frontal neoplasm with [employer]PER[employer] shunt in place. She was evaluated by neurosurgery in the ER and taken to the OR for craniotomy and meningioma resection which she tolerated well and was subsequently transferred to the ICU kept orally intubated on mechanical ventilation. I evaluated the patient following her arrival to the ICU after surgery. I discussed the case in detail with Dr. Cha her neurosurgeon. History is obtained by reviewing records and discussion with neurosurgery. 01/11:, Easily arousable, moving all 4 extremities. Orally intubated on mechanical ventilation at the time of my evaluation this morning. Off sedation. Initiated CPAP trials. 01/12: Extubated yesterday, tolerating well. Awake and alert. Following commands. Moves all 4 extremities. Knows she is in the hospital. Objective Vital Signs / I&O: Vital Signs 01/11/18 16:00 01/11/18 19:51 01/11/18 20:00 Temperature 98 F 98.1 F Pulse Rate 82 84 Respiratory Rate 20 20 Blood Pressure 107/60 128/64 Pulse Oximetry 96 93 L 96 01/12/18 00:00 01/12/18 04:00 Temperature 98.4 F 97.8 F Pulse Rate 86 73 Respiratory Rate 16 16 Blood Pressure 130/64 115/69 Pulse Oximetry Intake & Output 01/11/18 01/12/18 01/12/18 18:59 06:59 18:59 Intake Total 1585 / 1585 1605 / 1605 Output Total 1750 / 1750 Balance -165 / -165 1605 / 1605 Weight 75.6 kg Intake: IV 1105 / 1105 1105 / 1105 NS + KCl 20 mEq Inj 1,000 ML @ 1000 / 1000 1000 / 1000 100 mls/hr IV.CONT .Q10H [facility] Rx #:[id number] Keppra Inj 500 MG In NS Inj 100 105 / 105 105 / 105 ML @ 400 mls/hr IV.SIG Q12H [facility] Rx#:[id number] Oral 480 / 480 Anesthesia Amount 500 / 500 Output: Urine Amount (Catheter) 1750 / 1750 Indwelling Urethral Catheter 1750 / 1750 Other: # Voids 3 Date of Last Bowel Movement 01/11/18 # Bowel Movements 0 1 Result Diagrams: 01/12/18 09:34 01/12/18 09:34 Objective Remarks: HEENT/ Neuro: Dressing over craniotomy site clean dry and intact, awake and alert, following commands, moving all extremities, pupils equal, pallor present , no icterus, tongue/ mucosa moist Neck: No JVD Chest/Pulm: good air entry bilaterally, no wheezing or crackles CVS: S1-S2 regular, no murmur GI/abdomen: soft, nontender, bowel sounds sluggish Extremities: warm bilaterally, no edema Assessment and Plan - Assessment and Plan Plan: 47-year-old female with: Meningioma recurrence status post craniotomy and resection Postop respiratory failure Plan: Neuro: neurochecks per protocol. Keppra for seizure prophylaxis per neurosurgery. Neurosurgery following. Tolerating extubation well. Continue Decadron IV-taper per neurosurgery recommendations. Cardiovascular: IV hydration, watch for hypotension Pulmonary: Extubated on 01/11, tolerating well, bronchodilators as needed. GI/liver: Advance p.o. diet as tolerated Renal/: IV hydration, strict intake output, monitor and replete electrolyte, follow BUN creatinine. Endocrine: SSI for glycemic control as needed. Heme: Follow CBC Prophylaxis: Pepcid, SCDs, Subcu heparin when okay with neurosurgery. 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 Transfer to hospitalist service for further medical management. Critical care will be signing off at this time. Please reconsult if needed.
[2018-01-13] MEDS: Chlorhexidine Gluconate 2% 1 Pack (2 Cloths) TOPICAL SCH (03:32)
--- NOTE | 2018-01-13 08:23 | P.PNNS ---
Subjective Interval history: patient without any issues Physical Exam Vital signs: Vital Signs 01/12/18 12:00 01/12/18 16:00 01/12/18 20:00 Temperature 98.2 F 98.2 F 98.3 F Pulse Rate 92 H 86 83 Respiratory Rate 29 H 22 24 Blood Pressure 114/63 120/66 119/69 Pulse Oximetry 100 01/12/18 23:40 01/13/18 00:00 01/13/18 04:00 Temperature 98.1 F 98.4 F Pulse Rate 68 72 Respiratory Rate 22 20 Blood Pressure 130/72 128/64 Pulse Oximetry 97 99 Intake & Output 01/12/18 01/13/18 01/13/18 18:59 06:59 18:59 Intake Total 1825 / 1825 1105 / 1105 Output Total 600 / 600 Balance 1825 / 1825 505 / 505 Weight 77.5 kg Intake: IV 1105 / 1105 1105 / 1105 NS + KCl 20 mEq Inj 1,000 ML @ 1000 / 1000 1000 / 1000 100 mls/hr IV.CONT .Q10H [facility] Rx #:[id number] Keppra Inj 500 MG In NS Inj 100 105 / 105 105 / 105 ML @ 400 mls/hr IV.SIG Q12H [facility] Rx#:[id number] Oral 720 / 720 Output: Urine 600 / 600 Other: # Voids 3 3 Date of Last Bowel Movement 01/12/18 01/13/18 # Bowel Movements 1 1 Narrative: E4 AOx self, hospital, not to year abulic FC x4 symmetric and resists examiner with good strength does not cooperate with full motor assessment incision: CDI, jorge - Urinary Catheter Management Indwelling Urethral Catheter Cath placed during this visit: yes, but has since been removed by the nurse Reason for continuing: Decision to DC catheter Insertion date: 01/10/18 Insertion time: 10:16 Removal date: 01/11/18 Removal time: 16:20 Assessment and Plan - Plan 47 yo with recurrent meningioma and known VPS POD 2 frontal craniotomy for resection -Reviewed post OP MRI: VPS in good location. small residual towards posterior aspect of resection cavity -Rad onc follow up as outpatient: due to multiple recurrences and high grade nature, would likely benefit from SRS to residual lesion -keppra for seizure ppx (2 weeks) -recommend slow decadron taper (2 weeks) -activity as tolerated, ok to be OOB with PT/OT, regular diet -Dressing as needed to prevent patient from touching wound. Ok to shower 72 hours post op -dispo pending rehab placement
[2018-01-13] MEDS: Senna/Docusate Sodium 8.6/50 MG Tablet PO SCH ×2 (09:46→22:07)
[2018-01-13] MEDS: Famotidine PF Inj 20 MG/2 ML Vial IV.PUSH SCH ×2 (09:46→22:06)
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
[2018-01-14] MEDS: Chlorhexidine Gluconate 2% 1 Pack (2 Cloths) TOPICAL SCH (05:25)
--- NOTE | 2018-01-14 09:09 | P.PNNS ---
Subjective Interval history: No events overnight- Loose stools last day and one episode of vomiting last evening Physical Exam Vital signs: Vital Signs 01/13/18 10:07 01/13/18 12:00 01/13/18 16:00 Temperature 97.4 F L 98 F Pulse Rate 76 72 Respiratory Rate 26 H 28 H Blood Pressure 125/60 127/60 Pulse Oximetry 98 96 100 01/13/18 20:00 01/13/18 20:55 01/14/18 00:00 Temperature 98 F 98.1 F Pulse Rate 72 55 L Respiratory Rate 22 25 H Blood Pressure 118/75 140/92 H Pulse Oximetry 99 97 95 01/14/18 04:00 01/14/18 08:00 Temperature 98.2 F Pulse Rate 44 L Respiratory Rate 21 Blood Pressure 155/72 H Pulse Oximetry 95 100 Intake & Output 01/13/18 01/14/18 01/14/18 18:59 06:59 18:59 Intake Total 2085 / 2085 2345 / 2345 Output Total 1750 / 1750 600 / 600 Balance 335 / 335 1745 / 1745 Weight 77.5 kg Intake: IV 1105 / 1105 2105 / 2105 NS + KCl 20 mEq Inj 1,000 ML @ 1000 / 1000 2000 / 2000 100 mls/hr IV.CONT .Q10H [facility] Rx #:[id number] Keppra Inj 500 MG In NS Inj 100 105 / 105 105 / 105 ML @ 400 mls/hr IV.SIG Q12H [facility] Rx#:[id number] Oral 980 / 980 240 / 240 Output: Urine 1750 / 1750 600 / 600 Other: # Incontinent Voids 2 Date of Last Bowel Movement 01/12/18 01/12/18 # Bowel Movements 1 0 Narrative: General patient in no acute distress HEENT head is shaven with surgical wounds and jorge jorge from the surgical procedure in place, wound clean no drainage Neuro patient can move all 4 extremities sensation is intact bilaterally, no obvious neuro deficits noted. A&O to person, place, time abulic - flat affect - new per mother's report (compared to prior post-ops) CN II-XII intact Motor 5/5 UE/LE Restrained due to habit of picking at wound - Urinary Catheter Management Indwelling Urethral Catheter Cath placed during this visit: yes, but has since been removed by the nurse Reason for continuing: Decision to DC catheter Insertion date: 01/10/18 Insertion time: 10:16 Removal date: 01/11/18 Removal time: 16:20 Assessment and Plan - Plan 47 yo with recurrent meningioma and known VPS post-op frontal craniotomy for resection (01/10) -Reviewed post OP MRI: VPS in good location. small residual towards posterior aspect of resection cavity -Rad onc follow up as outpatient: due to multiple recurrences and high grade nature, would likely benefit from SRS to residual lesion -hector for seizure ppx (2 weeks) -recommend slow decadron taper (2 weeks) -activity as tolerated, ok to be OOB with PT/OT, regular diet -Dressing as needed to prevent patient from touching wound. Ok to shower 72 hours post op -dispo pending rehab placement -head CT given vomiting last evening, low suspicion for shunt dysfunction given good clinical improvement but fill follow-up on results.
[2018-01-14] MEDS: Famotidine PF Inj 20 MG/2 ML Vial IV.PUSH SCH ×2 (10:13→21:51)
[2018-01-14] MEDS: Senna/Docusate Sodium 8.6/50 MG Tablet PO SCH ×2 (10:14→21:50)
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
--- NOTE | 2018-01-14 15:56 | CT ---
EXAM DATE: 01/14/2018 3:41 PM EDT AGE/SEX: 47 years / Female INDICATIONS: Post op [employer] shunt CLINICAL DATA: This is the patient's initial encounter. Patient reports that signs and symptoms have been present for 1 day and indicates a pain score of 2/10. MEDICAL/SURGICAL HISTORY: Cerebrovascular disease. Brain tumor Craniotomy. RADIATION DOSE: 56.35 CTDI (mGy) COMPARISON: [facility] – [place], CT HEAD W & W/O CONTRAST, 01/10/2018. . TECHNIQUE: CT of the head without contrast. Using automated exposure control and adjustment of the mA and/or kV according to patient size, radiation dose was kept as low as reasonably achievable to ob tain optimal diagnostic quality images. DICOM format image data is available electronically for revi ew and comparison. FINDINGS: Cerebrum: A large air-filled cavity is identified in the right frontal lobe following craniotomy and resection of a large enhancing mass. The cavity extends across the midline into the left frontal reg ion. Interval residual hyperdense tissue is seen along the posterior deep periphery of the resected m ass. There is significant surrounding edema which was present preoperatively. Right frontal ventricul ostomy tube remains in stable position. Posterior Fossa: The cerebellum and brainstem are intact. The 4th ventricle is midline. The cerebe llopontine angle is unremarkable. Extracranial: The visualized portion of the orbits is intact. Skull: Large bifrontal craniotomy defects are noted. CONCLUSION: 1. Large air-filled cavity in the right frontal lobe which extends across the midline into the left frontal region following anatomy and resection of a large enhancing mass. 2. Stable pre-existing bifrontal lobe edema. 3. No other acute or significant findings identified in the temporal, parietal or occipital lobes. . Electronically signed by: Guanaco Vera MD 01/14/2018 3:55 PM EDT
[2018-01-15] MEDS: Chlorhexidine Gluconate 2% 1 Pack (2 Cloths) TOPICAL SCH (06:13)
[2018-01-15] MEDS: Senna/Docusate Sodium 8.6/50 MG Tablet PO SCH ×2 (08:30→21:17)
[2018-01-15] MEDS: Famotidine PF Inj 20 MG/2 ML Vial IV.PUSH SCH ×2 (08:30→21:17)
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
[2018-01-15] MEDS: levETIRAcetam 500 MG Tablet PO SCH ×2 (10:50→21:17)
--- NOTE | 2018-01-15 13:14 | P.PNNS ---
Subjective Interval history: Pt awake mild confusion but pleasant. Some disorientation to year and state. No headache, nausea, vomiting, or paresthesias. Physical Exam Vital signs: Vital Signs 01/14/18 16:00 01/14/18 20:00 01/14/18 20:12 Temperature 98.2 F 98.2 F Pulse Rate 80 76 Respiratory Rate 25 H 20 Blood Pressure 115/57 L 112/62 Pulse Oximetry 99 98 100 01/14/18 23:35 01/14/18 23:37 01/15/18 04:00 Temperature 98.3 F 98 F Pulse Rate 68 65 65 Respiratory Rate 20 20 Blood Pressure 123/65 130/71 Pulse Oximetry 98 93 L 01/15/18 07:52 01/15/18 08:00 Temperature 98.2 F Pulse Rate 52 L Respiratory Rate 24 Blood Pressure 156/79 H Pulse Oximetry 96 95 Intake & Output 01/14/18 01/15/18 01/15/18 18:59 06:59 18:59 Intake Total 825 / 825 1705 / 1705 100 / 100 Output Total 600 / 600 1999 / 1999 Balance 225 / 225 -295 / -295 100 / 100 Weight 76.8 kg Intake: IV 105 / 105 1105 / 1105 100 / 100 NS + KCl 20 mEq Inj 1,000 ML @ 0 / 0 1000 / 1000 100 / 100 100 mls/hr IV.CONT .Q10H [facility] Rx #:[id number] Keppra Inj 500 MG In NS Inj 100 105 / 105 105 / 105 ML @ 400 mls/hr IV.SIG Q12H [facility] Rx#:[id number] Oral 720 / 720 600 / 600 Output: Urine 600 / 600 1999 Other: # Incontinent Voids 1 Date of Last Bowel Movement 01/12/18 01/13/18 # Bowel Movements 0 - Constitutional no acute distress - Routine HEENT Exam Head: Absent: normocephalic, atraumatic (Pts incisions covered with bandage. Pt has been reaching for them and reportedly picking at them.) Eye: Present: PERRL. Absent: conjunctival icterus ENT: Present: oropharynx clear - Routine Neck Exam Present: trachea midline - Routine Respiratory Exam Present: CTA bilaterally. Absent: respiratory distress, rhonchi, wheezes - Routine Cardiovascular Exam Present: RRR, S1, S2. Absent: murmur - Routine Abdominal Exam Present: soft, normoactive bowel sounds - Routine Skin Exam Absent: cyanosis, erythema Comments: Incision intact keeping covered with bandage. Pt reportedly has been picking at it. - Routine Neurological Exam Present: alert, altered mental status (Mild. ). Absent: oriented X3 (Some disorientation to year and state.), motor deficit - Detailed Neurological Exam: Coma Scale Eye Opening: Spontaneous Verbal Response: Confused Motor Response: Obey commands [place] Coma Scale Total: 14 - Routine Psychiatric Exam Present: cooperative. Absent: anxious, agitated - Urinary Catheter Management Indwelling Urethral Catheter Cath placed during this visit: yes, but has since been removed by the nurse Reason for continuing: Decision to DC catheter Insertion date: 01/10/18 Insertion time: 10:16 Removal date: 01/11/18 Removal time: 16:20 Assessment and Plan - Assessment (1) Brain tumor Code(s): D49.6 - Neoplasm of unspecified behavior of brain Status: Acute - Plan 47 yo with recurrent meningioma and known VPS post-op frontal craniotomy for resection (01/10) -Reviewed post OP MRI: VPS in good location. small residual towards posterior aspect of resection cavity -Rad onc follow up as outpatient: due to multiple recurrences and high grade nature, would likely benefit from SRS to residual lesion -keppra for seizure ppx (2 weeks) -recommend slow decadron taper (2 weeks) -activity as tolerated, ok to be OOB with PT/OT, regular diet -Dressing as needed to prevent patient from touching wound. Ok to shower 72 hours post op -dispo pending rehab placement
--- NOTE | 2018-01-15 17:36 | CT ---
EXAM DATE: 01/15/2018 5:16 PM EDT AGE/SEX: 47 years / Female INDICATIONS: Patient quit talking after meningioma removal CLINICAL DATA: This is the patient's initial encounter. Patient reports that signs and symptoms have been present for 1 day and indicates a pain score of 0/10. MEDICAL/SURGICAL HISTORY: Leukemia. Cerebrovascular disease. Craniotomy. RADIATION DOSE: 23.02 CTDI (mGy) COMPARISON: [facility] – [place], CT HEAD W/O CONTRAST, 01/14/2018. [facility] – [place], CT HEAD W & W/O CONTRAST, 01/10/2018. . TECHNIQUE: CT of the head without contrast. Using automated exposure control and adjustment of the mA and/or kV according to patient size, radiation dose was kept as low as reasonably achievable to ob tain optimal diagnostic quality images. DICOM format image data is available electronically for revi ew and comparison. FINDINGS: Cerebrum: Postoperative changes are again noted. There is a large region of gas at the prior resecti on site centered in the right frontal lobe and extending into the left frontal lobe, mildly increased since the prior exam. Hyperdensity is again seen adjacent to the gas. There is persistent surroundin g edema. A right ventriculostomy catheter remains in stable position without interval ventriculomegal y. Grossly stable minimal leftward midline shift. No evidence to suggest interval acute large vessel cortical based infarction or new large intraventricular hemorrhage. Posterior Fossa: The cerebellum and brainstem are intact. The 4th ventricle is midline. The cerebe llopontine angle is unremarkable. Extracranial: The visualized portion of the orbits is intact. Skull: Postoperative changes of the skull, as before. CONCLUSION: 1. Postoperative changes are again noted, with mild interval increase in amount of gas in the fronta l lobes. Electronically signed by: Joi Ramachandran MD 01/15/2018 5:34 PM EDT
[2018-01-16] MEDS: Famotidine PF Inj 20 MG/2 ML Vial IV.PUSH SCH ×2 (08:54→20:23)
[2018-01-16] MEDS: Senna/Docusate Sodium 8.6/50 MG Tablet PO SCH ×2 (08:54→20:23)
[2018-01-16] MEDS: levETIRAcetam 500 MG Tablet PO SCH ×2 (08:54→20:23)
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
--- NOTE | 2018-01-16 16:40 | P.PNNS ---
Subjective Interval history: Pt awake having difficulty verbalizing although some improvement since yesterday afternoon. She was placed on nonrebreather 100% O2 for post op pneumocephalus. She is awake and alert and follows simple commands well. <León Cano - Last Filed: 01/16/18 16:35> Physical Exam Vital signs: Vital Signs 01/15/18 18:12 01/15/18 20:00 01/15/18 20:50 Temperature 97.0 F L Pulse Rate 86 Respiratory Rate 20 Blood Pressure 127/89 Pulse Oximetry 100 97 100 01/16/18 00:00 01/16/18 00:37 01/16/18 04:00 Temperature 99.2 F 99.2 F Pulse Rate 56 L 52 L Respiratory Rate 22 18 Blood Pressure 113/56 L 97/52 L Pulse Oximetry 97 100 97 01/16/18 04:32 01/16/18 08:00 01/16/18 12:00 Temperature 98.3 F 98.3 F Pulse Rate 48 L 60 Respiratory Rate 20 20 Blood Pressure 101/52 L 120/65 Pulse Oximetry 99 99 98 01/16/18 16:00 Temperature 98.2 F Pulse Rate 86 Respiratory Rate 24 Blood Pressure 120/70 Pulse Oximetry 94 L Intake & Output 01/15/18 01/16/18 01/16/18 18:59 06:59 18:59 Intake Total 100 / 100 500 / 500 Output Total 1450 / 1450 Balance 100 / 100 -950 / -950 Weight 75.1 kg Intake: IV 100 / 100 NS + KCl 20 mEq Inj 1,000 ML @ 100 / 100 100 mls/hr IV.CONT .Q10H [facility] Rx #:[id number] Oral 500 / 500 Output: Urine 1450 / 1450 Other: # Incontinent Voids 2 2 # Urine Diapers 2 Date of Last Bowel Movement 01/13/18 # Bowel Movements 0 - Constitutional no acute distress - Routine HEENT Exam Head: Absent: normocephalic (Shunt incision site clean and dry without signs of infection.) Eye: Present: PERRL. Absent: conjunctival icterus - Routine Respiratory Exam Present: CTA bilaterally. Absent: respiratory distress, rhonchi, wheezes - Routine Cardiovascular Exam Present: RRR, S1, S2. Absent: murmur - Routine Abdominal Exam Present: soft, normoactive bowel sounds. Absent: firm - Routine Skin Exam Absent: cyanosis, erythema - Routine Neurological Exam Present: alert, moving all extremities. Absent: altered mental status, normal speech (Pt with periods of expressive aphasia.) - Detailed Neurological Exam: Coma Scale Eye Opening: Spontaneous Verbal Response: Words Motor Response: Obey commands [place] Coma Scale Total: 13 - Routine Psychiatric Exam Present: normal affect, cooperative. Absent: anxious, agitated Comments: Pt with expressive aphasia. - Urinary Catheter Management Indwelling Urethral Catheter Cath placed during this visit: yes, but has since been removed by the nurse Reason for continuing: Decision to DC catheter Insertion date: 01/10/18 Insertion time: 10:16 Removal date: 01/11/18 Removal time: 16:20 <León Cano - Last Filed: 01/16/18 16:35> Vital signs: Vital Signs 01/15/18 18:12 01/15/18 20:00 01/15/18 20:50 Temperature 97.0 F L Pulse Rate 86 Respiratory Rate 20 Blood Pressure 127/89 Pulse Oximetry 100 97 100 01/16/18 00:00 01/16/18 00:37 01/16/18 04:00 Temperature 99.2 F 99.2 F Pulse Rate 56 L 52 L Respiratory Rate 22 18 Blood Pressure 113/56 L 97/52 L Pulse Oximetry 97 100 97 01/16/18 04:32 01/16/18 07:00 01/16/18 08:00 Temperature 98.3 F Pulse Rate 48 L Respiratory Rate 20 Blood Pressure 101/52 L Pulse Oximetry 99 99 99 01/16/18 12:00 01/16/18 16:00 Temperature 98.3 F 98.2 F Pulse Rate 60 86 Respiratory Rate 20 24 Blood Pressure 120/65 120/70 Pulse Oximetry 98 94 L Intake & Output 01/15/18 01/16/18 01/16/18 18:59 06:59 18:59 Intake Total 100 / 100 500 / 500 Output Total 1450 / 1450 Balance 100 / 100 -950 / -950 Weight 75.1 kg Intake: IV 100 / 100 NS + KCl 20 mEq Inj 1,000 ML @ 100 / 100 100 mls/hr IV.CONT .Q10H [facility] Rx #:[id number] Oral 500 / 500 Output: Urine 1450 / 1450 Other: # Incontinent Voids 2 2 # Urine Diapers 2 Date of Last Bowel Movement 01/13/18 # Bowel Movements 0 - Urinary Catheter Management Indwelling Urethral Catheter Cath placed during this visit: no <Juve Urrutia - Last Filed: 01/16/18 17:48> Assessment and Plan - Assessment (1) Brain tumor Code(s): D49.6 - Neoplasm of unspecified behavior of brain Status: Acute - Plan 47 yo with recurrent meningioma and known VPS post-op frontal craniotomy for resection (01/10) -Reviewed post OP MRI: VPS in good location. small residual towards posterior aspect of resection cavity -Rad onc follow up as outpatient: due to multiple recurrences and high grade nature, would likely benefit from SRS to residual lesion -keppra for seizure ppx (2 weeks) -recommend slow decadron taper (2 weeks) -activity as tolerated, ok to be OOB with PT/OT, regular diet -Dressing as needed to prevent patient from touching wound. Ok to shower 72 hours post op -dispo pending rehab placement -Discontinue 100% O2 -Possible rehab placement tomorrow if stable -Speech therapy evaluation. <León Cano - Last Filed: 01/16/18 16:35> - Attending Attestation The exam, history, and the medical decision-making described in the above note were completed with the assistance of the mid-level provider. I reviewed and agree with the findings presented. I attest that I had a [id number] encounter with the patient on the same day, and personally performed and documented my assessment and findings in the medical record. Updated mother at bedside. <Juve Urrutia - Last Filed: 01/16/18 17:48>
[2018-01-17 05:21] LABS: Hematocrit 40.5 % (35.0-46.0); Hemoglobin 13.4 gm/dL (11.6-15.3); Mean Corpuscular Hemoglobin 27.7 pg (27.0-34.0); Mean Corpuscular Volume 83.9 fL (80.0-100.0); Mean Platelet Volume 7.9 fL (7.0-11.0); Platelet Count 330 th/mm3 (150-450); Red Blood Count 4.83 mil/mm3 (4.00-5.30); Red Cell Distribution Width 18.4 % (11.6-17.2); White Blood Count 13.4 th/mm3 (4.0-11.0)
[2018-01-17 05:45] LABS: Calcium 8.9 mg/dL (8.5-10.1); Carbon Dioxide 25.4 meq/L (21.0-32.0); Potassium 4.1 meq/L (3.5-5.1)
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
[2018-01-17] MEDS: levETIRAcetam 500 MG Tablet PO SCH ×3 (10:17→20:42)
[2018-01-17] MEDS: Famotidine PF Inj 20 MG/2 ML Vial IV.PUSH SCH ×2 (10:17→20:42)
[2018-01-17] MEDS: Senna/Docusate Sodium 8.6/50 MG Tablet PO SCH ×2 (10:17→20:42)
--- NOTE | 2018-01-17 14:56 | P.PNNS ---
Subjective Interval history: Pt seen this morning on rounds. She was sitting up in bed very alert. Tracking around room. Pt unable to answer any questions and has complete expressive aphasia and also having some receptive aphasia as she follows commands not as readily as yesterday. Yesterday she was able to get some words out but also had expressive aphasia. Post operatively she was answering all questions without any expressive aphasia. until the afternoon of 01/15/18. A follow up CT head revealed Post op pneumocephalus and she was treated with 100% O2 via nonrebreather mask. She continues to have episodic expressive aphasia. Mother at bedside states she has not had seizures in the past. She has never had any issues with aphasia before. <León Cano - Last Filed: 01/17/18 14:39> Physical Exam Vital signs: Vital Signs 01/16/18 16:00 01/16/18 20:00 01/17/18 00:00 Temperature 98.2 F 97.5 F L 98.7 F Pulse Rate 86 64 74 Respiratory Rate 24 25 H 23 Blood Pressure 120/70 117/71 150/59 H Pulse Oximetry 94 L 96 92 L 01/17/18 03:19 01/17/18 04:00 01/17/18 07:00 Temperature 98.7 F Pulse Rate 63 Respiratory Rate 21 Blood Pressure 100/59 L Pulse Oximetry 98 92 L 94 L Intake & Output 01/16/18 01/17/18 01/17/18 18:59 06:59 18:59 Intake Total 480 / 480 Output Total 1700 / 1700 900 / 900 Balance -1700 / -1700 -420 / -420 Weight 74.4 kg Intake: Oral 480 / 480 Output: Urine 1700 / 1700 900 / 900 Other: # Bowel Movements 0 - Constitutional no acute distress Comments: Pt resting in bed awake and alert with expressive aphasia. - Routine HEENT Exam Head: Absent: normocephalic (Pts right sided scalp incisions are clean and dry without signs of infection.) Eye: Present: PERRL (Pupils 3mm bilaterally reactive bilaterally.). Absent: conjunctival icterus - Routine Neck Exam Present: trachea midline - Routine Respiratory Exam Present: CTA bilaterally, rhonchi, wheezes. Absent: respiratory distress - Routine Cardiovascular Exam Present: RRR, S1, S2. Absent: murmur - Routine Abdominal Exam Present: soft, normoactive bowel sounds. Absent: distended, firm - Routine Skin Exam Absent: cyanosis, erythema (Incisions are clean and dry without signs of infection.) - Routine Neurological Exam Present: alert, altered mental status (Pt with expressive and some receptive aphasia.), moving all extremities. Absent: motor deficit, facial asymmetry, normal speech (Pt with episodic expressive aphasias and some receptive aphasia.) - Detailed Neurological Exam: Coma Scale Eye Opening: Spontaneous Verbal Response: None Motor Response: Obey commands (Intermittently.) Alexander Coma Scale Total: 11 - Routine Psychiatric Exam Present: unable to assess - Urinary Catheter Management Indwelling Urethral Catheter Cath placed during this visit: yes, but has since been removed by the nurse Reason for continuing: Decision to DC catheter Insertion date: 01/10/18 Insertion time: 10:16 Removal date: 01/11/18 Removal time: 16:20 <León Cano - Last Filed: 01/17/18 14:39> Vital signs: Vital Signs 01/16/18 16:00 01/16/18 20:00 01/17/18 00:00 Temperature 98.2 F 97.5 F L 98.7 F Pulse Rate 86 64 74 Respiratory Rate 24 25 H 23 Blood Pressure 120/70 117/71 150/59 H Pulse Oximetry 94 L 96 92 L 01/17/18 03:19 01/17/18 04:00 01/17/18 07:00 Temperature 98.7 F Pulse Rate 63 Respiratory Rate 21 Blood Pressure 100/59 L Pulse Oximetry 98 92 L 94 L Intake & Output 01/16/18 01/17/18 01/17/18 18:59 06:59 18:59 Intake Total 480 / 480 Output Total 1700 / 1700 900 / 900 Balance -1700 / -1700 -420 / -420 Weight 74.4 kg Intake: Oral 480 / 480 Output: Urine 1700 / 1700 900 / 900 Other: # Bowel Movements 0 - Urinary Catheter Management Indwelling Urethral Catheter Cath placed during this visit: no <Juve Urrutia - Last Filed: 01/17/18 15:15> Assessment and Plan - Assessment (1) Brain tumor Code(s): D49.6 - Neoplasm of unspecified behavior of brain Status: Acute - Plan 47 yo with recurrent meningioma and known VPS post-op frontal craniotomy for resection (01/10) Pt with post operatively episodic expressive aphasia. Follow up CT head on revealed pneumocephalus. She follows some commands intermittently. -Reviewed post OP MRI: VPS in good location. small residual towards posterior aspect of resection cavity -Rad onc follow up as outpatient: due to multiple recurrences and high grade nature, would likely benefit from SRS to residual lesion -keppra for seizure ppx (2 weeks) -recommend slow decadron taper (2 weeks) -activity as tolerated, ok to be OOB with PT/OT, regular diet -Dressing as needed to prevent patient from touching wound. Ok to shower 72 hours post op -Continue with Speech therapy. -EEG -Neurology consult. <León Cano - Last Filed: 01/17/18 14:39> - Attending Attestation The exam, history, and the medical decision-making described in the above note were completed with the assistance of the mid-level provider. I reviewed and agree with the findings presented. I attest that I had a [id number] encounter with the patient on the same day, and personally performed and documented my assessment and findings in the medical record. <Juve Urrutia - Last Filed: 01/17/18 15:15>
--- NOTE | 2018-01-17 21:36 | MB ---
cc: Rubin Mcpherson MD, PhD DATE: 01/17/2018 REASON FOR CONSULTATION: ?seizure. HISTORY OF PRESENT ILLNESS: This is a pleasant 47-year-old female who has a history of childhood leukemia, history of meningioma resected about a year ago last April. She had a recurrent meningioma which was resected last Saturday. Her mother relates that she has been less responsive, not talking and sometimes staring off into space blankly. She has not had any tonic-clonic activity. PAST MEDICAL HISTORY: She has history of meningioma resected x 2, recently last Saturday, history of leukemia as a child, dermoid cysts of the ovaries. CURRENT MEDICATIONS: 1. Tylenol. 2. Dulcolax. 3. Decadron 4 mg b.i.d. 4. Pepcid. 5. Lactulose. 6. Keppra 500 mg b.i.d. 7. Reglan. 8. Zofran p.r.n. NEUROLOGICAL EXAMINATION: VITAL SIGNS: Blood pressure 120/62, pulse 100, respirations 29, temperature 98.8 degrees. HIGHER CORTICAL FUNCTION: She is alert appearing. She can follow simple commands, but no complicated commands. There is no speech output. CRANIAL NERVES: Pupils are equal and reactive. The extraocular movements are intact. MOTOR: Grossly normal but difficult to assess as she is not following commands well. DIAGNOSTIC DATA: A CT of the brain done on the 01/15/2018, postoperative changes noted in the right frontal lobe with edema, right ventriculostomy catheter in place, stable without ventriculomegaly, minimal leftward shift. MRI brain done preoperatively on 01/11/2018 showed a complex nonenhancing mass and some nodular enhancement recurrent within the falx with vasogenic edema. LABORATORY DATA: White count 13,400, hemoglobin 13.4, hematocrit 40%, platelet count 330,000. Sodium 139, potassium 4.1, chloride 103, CO2 of 25.4, BUN 28, creatinine 0.75, GFR 82, glucose 124. IMPRESSION: Status post resection of recurrent tumor, which appears to be a meningioma, with mental status change, possible seizures, focal seizures. RECOMMENDATIONS: We will increase Keppra to 500 mg every 6 hours and also obtain an EEG. Rubin Mcpherson MD, PhD MITCHEL/diana , 05:54 PM , 06:02 PM
[2018-01-18] MEDS: Senna/Docusate Sodium 8.6/50 MG Tablet PO SCH ×2 (09:10→20:47)
[2018-01-18] MEDS: levETIRAcetam 500 MG Tablet PO SCH (09:10)
[2018-01-18] MEDS: Famotidine PF Inj 20 MG/2 ML Vial IV.PUSH SCH ×2 (09:10→20:47)
[2018-01-18] MEDS ORDERED: Dextrose 5%/NaCl 0.45% Inj 1,000 ML IV.CONT SCH (09:45)
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
--- NOTE | 2018-01-18 11:41 | P.PNNS ---
Subjective Interval history: Still aphasic since 01/15, not eating well or executing commands Last CT on 01/15 showed pneumocephalus, supplemental O2 did not really improve her status Following some commands with family and eating more this morning. Physical Exam Vital signs: Vital Signs 01/17/18 12:00 01/17/18 14:00 01/17/18 16:00 Temperature 98.2 F 98.8 F Pulse Rate 76 64 100 H Respiratory Rate 26 H 29 H Blood Pressure 117/78 120/62 Pulse Oximetry 92 L 92 L 01/17/18 18:00 01/17/18 19:00 01/17/18 20:00 Temperature 98.3 F Pulse Rate 86 84 Respiratory Rate 27 H Blood Pressure 123/70 Pulse Oximetry 92 L 95 01/18/18 00:00 01/18/18 04:00 01/18/18 08:00 Temperature 98.5 F 98.4 F 98.0 F Pulse Rate 63 77 65 Respiratory Rate 13 20 Blood Pressure 123/66 Pulse Oximetry 93 L 91 L 97 01/18/18 08:51 Temperature Pulse Rate Respiratory Rate Blood Pressure Pulse Oximetry 95 Intake & Output 01/17/18 01/18/18 01/18/18 18:59 06:59 18:59 Intake Total 500 / 500 480 / 480 Output Total 800 / 800 1000 / 1000 Balance -300 / -300 -520 / -520 Weight 75.1 kg Intake: Oral 500 / 500 480 / 480 Output: Urine 800 / 800 1000 / 1000 Other: Date of Last Bowel Movement 01/14/18 01/14/18 01/14/18 # Bowel Movements 0 Narrative: A&O to person. Nonverbal mostly but does intermittently follow some commands Moves all extremities. Holds straw and cup but does not drink. Holds fork for food but does not initiate eating. Does not interact unless interacted with, using short 2 word phrases to speak Moves all extremities - Urinary Catheter Management Indwelling Urethral Catheter Cath placed during this visit: yes, but has since been removed by the nurse Reason for continuing: Decision to DC catheter Insertion date: 01/10/18 Insertion time: 10:16 Removal date: 01/11/18 Removal time: 16:20 Assessment and Plan - Plan 47 yo with recurrent meningioma and known VPS post-op frontal craniotomy for resection (01/10) Pt with post operatively episodic expressive aphasia (01/15). Follow up CT head on 01/15 revealed pneumocephalus. She follows some commands intermittently. -Reviewed post OP MRI: VPS in good location. small residual towards posterior aspect of resection cavity -Rad onc follow up as outpatient: due to multiple recurrences and high grade nature, would likely benefit from SRS to residual lesion -recommend slow decadron taper (2 weeks)-- dropped to 2mg po BID today -activity as tolerated, ok to be OOB with PT/OT, regular diet -Dressing as needed to prevent patient from touching wound. Ok to shower 72 hours post op -Continue with Speech therapy. -EEG this AM 01/18 nonrevealing. With obtain MRI Brain to check on status today. Could be fluctuating exam and if benign, consider increasing Decadron. -keppra for seizure ppx (2 weeks) -- switched to IV today 500mg BID given she is not eating much
[2018-01-18] MEDS ORDERED: Gadobutrol PF 7.5 MMOL/7.5 ML Vial (for RAD) IV.SIG ONE (12:09)
--- NOTE | 2018-01-18 12:27 | MR ---
EXAM DATE: 01/18/2018 12:08 PM EDT AGE/SEX: 47 years / Female INDICATIONS: Mass. CLINICAL DATA: This is the patient's initial encounter. Patient reports that signs and symptoms have been present for 1 day and indicates a pain score of 0/10. MEDICAL/SURGICAL HISTORY: Seizures. Brain tumor. Craniotomy. COMPARISON: [facility] [place] & W/O CONTRAST, 01/11/2018. . TECHNIQUE: Multiplanar, multisequence examination of the brain was performed without and with 7 ml Ga davist (gadobutrol) contrast as a single exam dose. FINDINGS: Again seen is a large partially cystic and partially solid mass involving the right frontal lobe. Its margination is very vague making exact measurements difficult. It is cystic and solid. There are 2 d ominant enhancing nodules observed. The entire mass measures 5.8 x 4.4 x 3.6 cm. The 2 areas of of no dular enhancement measure 3.1 x 2.1 x 1.9 cm anteriorly and 2.5 x 2.2 x 1.7 cm posteriorly adjacent t o the falx. Large cystic areas are also seen associated with this mass. The mass has some enhancement which courses across the midline involving the corpus callosum anteriorly. Significant vasogenic thad ma is observed involving both frontal lobes but more pronounced on the right. There is midline shift right to left of 6 mm. More cephalad along the falx is an enhancing nodule near the vertex that measu res 13 x 11 x 7 mm. This projects towards the right of midline. A prior lacunar infarction involving the bjorn posterior laterally on the right. This is stable. There are hemosiderin byproducts noted in this area with blooming artifact on the gradient echo sequence. No acute infarction. No acute hemorrh age. Ventricles are stable in size. Orbital structures, paranasal sinuses, and mastoid air cells are clear. CONCLUSION: 1. No significant change in the one-week interval from the prior MRI. Again seen is a large heteroge neous mass involving the right frontal lobe with satellite lesion involving the falx more cephalad at the vertex. There is midline shift of 5 to 6 mm and a fair amount of vasogenic edema. No hydrocephal y or acute infarction observed. Electronically signed by: Larry Mitchell MD 01/18/2018 12:26 PM EDT
[2018-01-19 04:09] LABS: Hematocrit 40.2 % (35.0-46.0); Hemoglobin 13.3 gm/dL (11.6-15.3); Mean Corpuscular Hemoglobin 27.7 pg (27.0-34.0); Mean Corpuscular Volume 83.9 fL (80.0-100.0); Mean Platelet Volume 7.8 fL (7.0-11.0); Platelet Count 321 th/mm3 (150-450); Red Blood Count 4.79 mil/mm3 (4.00-5.30); Red Cell Distribution Width 18.2 % (11.6-17.2); White Blood Count 12.2 th/mm3 (4.0-11.0)
[2018-01-19 04:36] LABS: Calcium 8.7 mg/dL (8.5-10.1); Carbon Dioxide 24.6 meq/L (21.0-32.0); Potassium 4.4 meq/L (3.5-5.1)
[2018-01-19] MEDS: Docusate Sodium Liq 100 MG/10 ML UDC PO SCH ×2 (08:52→20:13)
[2018-01-19] MEDS: Famotidine PF Inj 20 MG/2 ML Vial IV.PUSH SCH ×2 (08:53→20:13)
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
[2018-01-19] MEDS: Sod Chloride 0.9% Inj 1,000 ML IV.SIG SCH ×2 (10:15→23:19)
--- NOTE | 2018-01-19 10:51 | P.PNNS ---
Subjective Interval history: Still aphasic-- Taking po after being fed but not initiating-- Amotive Physical Exam Vital signs: Vital Signs 01/18/18 12:00 01/18/18 16:00 01/18/18 20:00 Temperature 98.7 F 97.8 F 98.5 F Pulse Rate 66 82 83 Respiratory Rate 25 H 15 29 H Blood Pressure 110/70 115/57 L 106/67 Pulse Oximetry 100 95 93 L 01/19/18 00:00 01/19/18 04:00 01/19/18 08:00 Temperature 98.4 F 97.8 F 98.5 F Pulse Rate 68 78 62 Respiratory Rate 20 31 H 16 Blood Pressure 98/57 L 115/60 103/58 L Pulse Oximetry 94 L 94 L 93 L Intake & Output 01/18/18 01/19/18 01/19/18 18:59 06:59 18:59 Intake Total 555 / 555 105 / 105 Output Total 1000 / 1000 900 / 900 Balance -445 / -445 -795 / -795 Weight 73.2 kg Intake: IV 305 / 305 105 / 105 D5W/1/2 NS Inj 1,000 ML @ 75 200 / 200 mls/hr IV.CONT .[id number] [facility] Rx# :[id number] Keppra Inj 500 MG In NS Inj 100 105 / 105 105 / 105 ML @ 400 mls/hr IV.SIG Q12H [facility] Rx#:[id number] Oral 250 / 250 0 / 0 Output: Urine 1000 / 1000 Urine Amount (Catheter) 900 / 900 Female External 900 / 900 Other: Date of Last Bowel Movement 01/14/18 01/14/18 01/14/18 # Bowel Movements 0 0 Narrative: Mom reports shaking while eating, but this is not seizure activity Awake, alert, eyes open NEURO: Aphasic. Follow some commands. Eats with encouragement Moves all extremities x 4 - Urinary Catheter Management Indwelling Urethral Catheter Cath placed during this visit: yes, but has since been removed by the nurse Reason for continuing: Decision to DC catheter Insertion date: 01/10/18 Insertion time: 10:16 Removal date: 01/11/18 Removal time: 16:20 Female External Cath placed during this visit: no Assessment and Plan - Plan 47 yo with recurrent meningioma and known VPS post-op frontal craniotomy for resection (01/10) Pt with post operatively episodic expressive aphasia (01/15). Follow up CT head on 01/15 revealed pneumocephalus. She follows some commands intermittently. Follow-up MRI on 01/18 showing residual tumor, cystic fluid cavities anteriorly, no stroke. EEG negative for seizure. -Rad onc follow up as outpatient: due to multiple recurrences and high grade nature, would likely benefit from SRS to residual lesion -Decadron bumped back up to 4mg IV q12 -many meds switched to IV -activity as tolerated, ok to be OOB with PT/OT, thickened diet at this point under supervision given amotivation -Dressing as needed to prevent patient from touching wound. Stitches/jorge 3 weeks from OR (01/31) -keppra for seizure ppx (2 weeks) -- switched to IV 500mg BID given she is not eating much, NS started at 75cc/hr given Bun of 28 -Will likely need SNF later this week. Goals of care discussed with mom and they do not want to escalate should the need arise. Palliative evaluation in the week. Mother has picked out a SNF for her daughter that she would prefer.
[2018-01-19] MEDS: Senna/Docusate Sodium 8.6/50 MG Tablet PO SCH (11:35)
[2018-01-20] MEDS: Famotidine PF Inj 20 MG/2 ML Vial IV.PUSH SCH ×2 (10:25→20:59)
[2018-01-20] MEDS: Docusate Sodium Liq 100 MG/10 ML UDC PO SCH ×2 (10:26→20:59)
--- NOTE | 2018-01-20 10:37 | P.CONPAL ---
Consult Service: Palliative Care Requesting Physician: Bereket Valdez Reason for Consult: a. To assist with evaluation and management of symptoms including:pain b. To assist medical decision maker(s) with: better understanding of current medical conditions; weighing benefits/burdens of medical treatment options; making medical treatment decisions. 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 Patient presented to [facility] emergency department on 01/10/18 with a new lump on her forehead, headache, intermittent dizziness and difficulty walking. CT scan revealed right frontal mass measuring 4.6x 2.8cm extending around the falx and into the anterior corpus callosum, second nodule measuring 11mm, effacement of both frontal horns with right ventriculostomy catheter in stable position. Neurosurgery, Dr. Cha was consulted and performed right frontal craniotomy and resection of meningioma, pathology revealed grade II necrotic atypical meningioma. She was extubated POD #1 and has been able to maintain airway. Radiation oncology, Dr. Bhatt was consulted who stated they would consider radiation after DC. On 01/14/18, patient was vomiting, repeat head CT with pneumocephalus. On 01/15/18 , patient had change in mental status, difficulty verbalizing. On 100% nonrebreather. Repeat CT head revealed mild interval increase in amount of gas in the frontal lobes. She remains in ICU. She remains minimally responsive. Eyes open, not communicating. Brother, sister in law and niece at bedside. Patient ate small amount of soup being fed by family. Mother, [facility] elected NO CODE today. She has reported to staff that she does not want continued aggressive care. Palliative care was consulted to assist with further clarification of goals of medical treatment. Patient does not appear to be in pain during my visit, mother reports she rubs her head when in pain. She is not sure if she is having pain, as she has been less responsive. She reports increased congestion and breathing changes. No seizures noted since recent decrease in Keppra, though remains high risk for seizure given tumor, edema, pneumocephalus. . Function/Cognitive Trajectory: Patient has had recent increased weakness, dizziness, difficulty ambulating and decreased appetite. Review of Systems ROS per family reports, patient no communicating. Constitutional: Reports daytime sleepiness, Reports fatigue, Reports lack of energy, Reports weakness Cardiovascular: Reports shortness of breath Respiratory: Reports chest congestion, Reports cough, Reports shortness of breath Musculoskeletal: Reports abnormal walking Neurologic: Reports abnormal speech, Reports abnormal walking, Reports confusion , Reports dizziness, Reports seizure-like activity, Reports unsteadiness, Reports weakness Psychiatric: Reports change in appetite (decreased), Reports confusion Hematologic/Lymphatic: Reports easy bruising PMFSH - History History Provided By: Family Member - Medical History Medical History: Medical History (Last Reviewed 01/20/18 @ 16:53 by Estefani Silva) Brain tumor Dermoid cyst of both ovaries Hx of headache Stroke - Surgical History Surgical History: Surgical History (Last Reviewed 01/20/18 @ 16:53 by Estefani Silva) Hx of breast reduction, elective - Family History Family History: Family History (Last Updated 01/20/18 @ 16:55 by Estefani Silva) Brother Alive and well Mother Alive and well Sister Alive and well - Social History I have reviewed the patient's Social History: Yes - Tobacco History Second Hand Smoke Exposure: Yes Tobacco Use In Past 30 Days: No Smoking Status: Former smoker Tobacco Type: Cigarettes - Alcohol History How Often Do You Have a Drink Containing Alcohol: Monthly or less - Substance Use History Substance History: No History of Abuse - Travel History Recent Travel in the [place] Within the Last 8 Weeks: No Recent Travel Out of the Country Within the Last 8 Weeks: No - Immunization History Tetanus Immunization: Unsure Hx Influenza Vaccine This Season: No Medications and Allergies Active Medications: Active Medications Acetaminophen (Tylenol) 650 mg PO Q6H PRN PRN Reason: PAIN 1-10 AND/OR FEVER >101F Last Admin: 01/13/18 11:56 Dose: 650 mg Al Hydroxide/Mg Hydroxide (Milk Of Magnesia Liq) 30 ml PO Q12H PRN PRN Reason: Mild Constipation Albuterol (Duoneb Neb (Prn)) 1 ampul NEB Q2HR NEB PRN PRN Reason: WHEEZING Bisacodyl (Dulcolax Supp) 10 mg RECTAL DAILY PRN PRN Reason: SEVERE CONSITIPATION Last Admin: 01/19/18 10:45 Dose: 10 mg Dexamethasone Sodium Phosphate (Decadron Inj) 4 mg IV.PUSH Q12HR [facility] Last Admin: 01/19/18 20:13 Dose: 4 mg Docusate Sodium (Colace Liq) 100 mg PO BID [facility] Last Admin: 01/19/18 20:13 Dose: 100 mg Famotidine (Pepcid Pf Inj) 20 mg IV.PUSH Q12HR [facility] Last Admin: 01/19/18 20:13 Dose: 20 mg Fentanyl Citrate (Fentanyl Inj) 50 mcg IV.PUSH Q2H PRN PRN Reason: PAIN SCALE 5-10 Last Admin: 01/10/18 17:11 Dose: 50 mcg Sodium Chloride (Ns Inj) 500 mls @ 30 mls/hr IV.SIG .Q10H [facility] Last Admin: 01/10/18 14:57 Dose: Not Given Propofol (Diprivan 1000 Mg/100 Ml Inj) 1,000 mg in 100 mls @ 2.1 mls/hr IV.CONT TITRATE PRN; Protocol PRN Reason: Per Protocol Levetiracetam 500 mg/ Sodium (Chloride) 105 mls @ 400 mls/hr IV.SIG Q12H [facility] Last Infusion: 01/20/18 01:08 Dose: Infused Sodium Chloride (Ns Inj) 1,000 mls @ 75 mls/hr IV.SIG .[id number] [facility] Last Admin: 01/19/18 23:19 Dose: 75 mls/hr Lactulose (Lactulose Liq) 30 ml PO DAILY PRN PRN Reason: SEVERE CONSITIPATION Metoclopramide HCl (Reglan Inj) 10 mg IV.PUSH Q6H PRN; Protocol PRN Reason: NAUSEA OR VOMITING Ondansetron HCl (Zofran Inj) 4 mg IV.PUSH Q6H PRN PRN Reason: NAUSEA OR VOMITING Last Admin: 01/13/18 19:27 Dose: 4 mg Sennosides (Senokot) 17.2 mg PO Q12H PRN PRN Reason: Moderate Constipation Sodium Chloride (Ns Flush) 2 ml IV.FLUSH BID [facility] Last Admin: 01/19/18 20:13 Dose: 2 ml Sodium Chloride (Ns Flush) 2 ml IV.FLUSH UNSCH PRN PRN Reason: FLUSH AFTER USING IV ACCESS Allergies Allergy/AdvReac Type Severity Reaction Status Date / Time sulfamethoxazole Allergy Intermediate Hives Verified 01/10/18 07:50 trimethoprim Allergy Intermediate Hives Verified 01/10/18 07:50 Home Medications Medication Instructions Recorded Confirmed Type cetirizine [Zyrtec] 10 mg PO DAILY 01/10/18 01/10/18 History gabapentin 100 mg PO TID 01/10/18 01/10/18 History ranitidine HCl 150 mg PO DAILY 01/10/18 01/10/18 History simvastatin 10 mg PO QPM 01/10/18 01/10/18 History Advance Directives Living Will: Yes Healthcare Surrogate: Yes (Liliana Peralta, mother) Health Care Surrogate Name and Number: mother Madison [phone] Documented care wishes: Patient documented on designation of HCS paperwork dated 04/18/17 that she would not want breathing machine past 5 days, no breathing machine if brain or if she can't come back to normal. No feeding tubes. No colostomy or urine bags. Today's verbally stated goals: Patient is not capacitated to make her own health care decisions. She will not regain capacity. Patient designated her mother, Liliana Foster as primary HCS. Family/friends goals: Mother has elected NO CODE (DNR/DNI) and desires transition to comfort measures with hospice support. Ethical and Legal Issues: Patient is not capacitated to make her own health care decisions. She will not regain capacity. Patient designated her mother, Liliana Foster as primary HCS. Physical Exam Vital Signs: Vital Signs - 24 hr 01/19/18 12:00 01/19/18 16:00 01/19/18 19:43 Temperature 99.7 F H 98.2 F Pulse Rate 90 100 H Respiratory Rate 12 26 H Blood Pressure 126/66 138/65 Pulse Oximetry 96 97 97 01/19/18 20:00 01/20/18 00:00 01/20/18 04:00 Temperature 98.3 F 98.1 F 98.8 F Pulse Rate 86 96 H 80 Respiratory Rate 22 18 22 Blood Pressure 125/63 129/60 122/78 Pulse Oximetry 98 95 93 L I&O: Intake & Output 01/18/18 01/19/18 01/20/18 01/21/18 06:59 06:59 06:59 06:59 Intake Total 980 / 980 660 / 660 1210 / 1210 Output Total 1800 / 1800 1900 / 1900 2401 / 2401 Balance -820 / -820 -1240 / -1240 -1191 / -1191 Weight 75.1 kg 73.2 kg 72.3 kg Physical Exam: CONSTITUTIONAL/GENERAL: This is a ill appearing patient, in no apparent distress. SKIN: No jaundice, rashes, or lesions. Ecchymoses on upper extremities. [place] on head. Skin temperature appropriate. Not diaphoretic. HEAD: Atraumatic. Normocephalic. EYES: Pupils equal and round and reactive. ENT: Unable to assess hearing. Nose without bleeding or purulent drainage. Mouth closed. NECK: Trachea midline. CARDIOVASCULAR: Regular rate and rhythm without murmurs. RESPIRATORY/CHEST: Intermittent congested cough. GASTROINTESTINAL: Abdomen soft, non-tender, nondistended. GENITOURINARY: Without palpable bladder distension. MUSCULOSKELETAL: Extremities without clubbing, cyanosis, or edema. No mottling or clubbing. LYMPHATICS: Not examined. NEUROLOGICAL: Awake, does not follows simple commands, does not nod yes/no to questions. Moves all extremities. PSYCHIATRIC: No obvious anxiety/depression. no apparent hallucinations or other psychotic thought process. Diagnostic Tests Laboratory: Laboratory Results - last 72 hr 01/19/18 01/19/18 03:43 03:43 WBC 12.2 H RBC 4.79 Hgb 13.3 Hct 40.2 MCV 83.9 MCH 27.7 MCHC 33.0 RDW 18.2 H Plt Count 321 MPV 7.8 Sodium 140 Potassium 4.4 Chloride 104 Carbon Dioxide 24.6 Anion Gap 11 BUN 28 H Creatinine 0.78 Estimated GFR 79 L Random Glucose 136 H Calcium 8.7 Result Diagrams: 01/20/18 12:27 01/20/18 11:24 Imaging: Shunt Study 01/10/18 07:58 CONCLUSION: Intact shunt Head CT 01/15/18 15:56 CONCLUSION: 1. Postoperative changes are again noted, with mild interval increase in amount of gas in the frontal lobes. Head MRI 01/18/18 00:00 CONCLUSION: 1. No significant change in the one-week interval from the prior MRI. Again seen is a large heterogeneous mass involving the right frontal lobe with satellite lesion involving the falx more cephalad at the vertex. There is midline shift of 5 to 6 mm and a fair amount of vasogenic edema. No hydrocephaly or acute infarction observed. Chest X-Ray 01/20/18 00:00 CONCLUSION: 1. Symmetric underinflation of the lungs. 2. Hazy opacification bilaterally, likely accentuated by low lung volumes, with probable bibasilar atelectasis. 3. Cardiomediastinal contours are prominent, which is likely at least partially related to low lung volumes. Procedures: * 01/10/18 - right frontal craniotomy and resection of meningioma Patient/Family Conference Present at Family Conference: Met with mother, brother and SHANEL. Also present JEREMY Drake. Family Conference Time: 45 Family Conference Location: [facility] Issues Discussed: * Palliative care role, purpose, approach * Additional medical, psychosocial, and spiritual history * Patients general health, functional status, and cognitive changes in the months leading up to the current hospitalization * Patient/family understanding of the current medical problems * Patient/family understanding of prognosis * Patients goals of care as best understood from advance directives and/or conversations and/or values * Current medical treatment options and benefits/burdens of those options * Likely scenarios comparing ongoing aggressive care with a transition to comfort measures only * Questions answered to the best of my ability * Palliative care contact information provided Assessment and Plan Pertinent Non-Medical Issues: Psychosocial:Single. No children. Lives with her mother. Never worked. Has 1 sister and 1 brother. Spiritual: Unknown. Legal:Patient is not capacitated to make her own health care decisions. She will not regain capacity. Patient designated her mother, Liliana Foster as primary HCS. Ethical issues impacting care: No known concerns at this time. Important Contacts: * Liliana Peralta, mother: [phone] * Tea Silva, other: [phone] Prognosis: Overall poor prognosis given recent change in mental status, recurrent atypical meningioma, no longer a candidate for further surgical intervention, pneumocephalus and decreased appetite, eating bites and sips. PPS 20. Hospice appropriate. Code Status: No Code DNR Plan: * Patient is not capacitated to make her own health care decisions. She will not regain capacity. Patient designated her mother, Liliana Foster as primary HCS. * NO CODE (DNR/DNI) * Met with mother, brother and SHANEL all are in agreement that patient has repeatedly told them she would not want to live like this. Mother, Liliana ROMAN elects NO CODE and desires transition to comfort with hospice support. She requests [facility] (1st choice) or [facility] placement DEIDRA. * Chest xray requested by mother, she does not expect treatment but feels it is important to know if an early pneumonia is contributing to her decline. Chest xray ordered. * Hospice consulted. Discussed with China mauro and Sangeeta with admissions. * SYMPTOMS: Headache: secondary to recent brain surgery, tumor, edema, pneumocephalus, etc. On Decadron. Has PRN Fentanyl available. None given recent , has been lethargic. Shortness of breath: nurse and family report breathing changes, SOB. Increased congestion. Chest x-ray ordered per family request. Will not change treatment plan. Mother feels it would be important to know. Seizures: on Decadron and Keppra. Remains high risk for recurrent seizure given pneumocephalus, edema and tumor. * Palliative care number provided. * Palliative care will continue to follow. Appreciation Thank you for the opportunity to participate in the care of Ines Arteaga. Attestation Attestation: To help prompt me to consider important information that might be impacting today's encounter and assessment, information from prior notes written by myself or my colleagues may have been "brought forward" into today's note. My signature on this note, however, is an attestation that I personally performed the exam, history, and/or decision-making noted today, and, unless otherwise indicated, the interactions with patient, family, and staff as well as the review of records all occurred today. I also attest that the listed assessment and stated plan reflect my best clinical judgment today based on the combination of historical information, prior notes, and today's exam/ interactions. When time spent is documented, it refers only to time spent today by the signer, or if indicated, combined time spent today by collaborating physician/nurse practitioner.
--- NOTE | 2018-01-20 11:47 | P.PNNS ---
Subjective Interval history: Pt awake. She is completely aphasic, expressive and receptive. She tracks around room but seems to focus more on the left side. Physical Exam Vital signs: Vital Signs 01/19/18 12:00 01/19/18 16:00 01/19/18 19:43 Temperature 99.7 F H 98.2 F Pulse Rate 90 100 H Respiratory Rate 12 26 H Blood Pressure 126/66 138/65 Pulse Oximetry 96 97 97 01/19/18 20:00 01/20/18 00:00 01/20/18 04:00 Temperature 98.3 F 98.1 F 98.8 F Pulse Rate 86 96 H 80 Respiratory Rate 22 18 22 Blood Pressure 125/63 129/60 122/78 Pulse Oximetry 98 95 93 L Intake & Output 01/19/18 01/20/18 01/20/18 18:59 06:59 18:59 Intake Total 105 / 105 1105 / 1105 Output Total 1001 / 1001 1400 / 1400 Balance -896 / -896 -295 / -295 Weight 72.3 kg Intake: IV 105 / 105 1105 / 1105 NS Inj 1,000 ML @ 75 mls/hr IV. 1000 / 1000 SIG .[id number] [facility] Rx#:[id number] Keppra Inj 500 MG In NS Inj 100 105 / 105 105 / 105 ML @ 400 mls/hr IV.SIG Q12H [facility] Rx#:[id number] Oral 0 / 0 Output: Urine 1000 / 1000 1100 / 1100 Stool 1 / 1 Estimated Blood Loss 300 / 300 Other: # Incontinent Voids 2 Date of Last Bowel Movement 01/19/18 01/20/18 # Bowel Movements 1 # Incontinent Bowel Movements 1 2 - Constitutional no acute distress, obese - Routine HEENT Exam Head: Absent: normocephalic (evidence of surgery clean and dry without signs of infection.) Eye: Present: PERRL (Pupils 4mm bilaterally reactive bilaterally.). Absent: conjunctival icterus - Routine Respiratory Exam Present: CTA bilaterally. Absent: respiratory distress, rhonchi, wheezes - Routine Cardiovascular Exam Present: RRR, S1, S2. Absent: murmur - Routine Abdominal Exam Present: soft, normoactive bowel sounds - Routine Skin Exam Absent: cyanosis, erythema Comments: Incision clean and dry without signs of infection. - Routine Neurological Exam Present: alert, altered mental status, moving all extremities (spontaneously. Not following commands.), normal speech (Receptive and expressive aphasia.) - Routine Psychiatric Exam Present: unable to assess (Unable to assess otherwise secondary to pt not verbalizing.). Absent: agitated - Urinary Catheter Management Indwelling Urethral Catheter Cath placed during this visit: yes, but has since been removed by the nurse Reason for continuing: Decision to DC catheter Insertion date: 01/10/18 Insertion time: 10:16 Removal date: 01/11/18 Removal time: 16:20 Female External Cath placed during this visit: no Assessment and Plan - Assessment (1) Brain tumor Code(s): D49.6 - Neoplasm of unspecified behavior of brain Status: Acute - Plan 47 yo with recurrent meningioma and known VPS post-op frontal craniotomy for resection (01/10) Pt with post operatively episodic expressive aphasia (01/15). Follow up CT head on 01/15 revealed pneumocephalus. She follows some commands intermittently. Follow-up MRI on 01/18 showing residual tumor, cystic fluid cavities anteriorly, no stroke. EEG negative for seizure. -Rad onc follow up as outpatient: due to multiple recurrences and high grade nature, would likely benefit from SRS to residual lesion -Decadron bumped back up to 4mg IV q12 -many meds switched to IV -activity as tolerated, ok to be OOB with PT/OT, thickened diet at this point under supervision given amotivation -Dressing as needed to prevent patient from touching wound. Stitches/jorge 3 weeks from OR (01/31) -keppra for seizure ppx (2 weeks) -- switched to IV 500mg BID given she is not eating much, NS started at 75cc/hr given Bun of 28 -Will likely need SNF later this week. -Mother states she wants to make pt a DNR this morning. She states she has had conversations with her daughter previously and would not want to prolong life in her current state and if her clinical condition was to deteriorate she would not want to resuscitate and she would not want a feeding tube. She is considering hospice and is going to discuss further with palliative care.
[2018-01-20 12:01] LABS: Albumin 3.1 g/dL (3.4-5.0); Anion Gap 10 meq/L (5-15); Aspartate Aminotransferase 16 U/L (15-37); Blood Urea Nitrogen 21 mg/dL (7-18); Calcium 8.4 mg/dL (8.5-10.1); Carbon Dioxide 23.7 meq/L (21.0-32.0); Chloride 106 meq/L (98-107); Glomerular Filtration Rate Greater Than 89 mL/min (>89); Glucose,Random 96 mg/dL (74-106); Magnesium 2.5 mg/dL (1.5-2.5); Potassium 4.2 meq/L (3.5-5.1); Sodium 140 meq/L (136-145)
[2018-01-20 12:02] LABS: Alanine Aminotransferase 47 U/L (10-53); Phosphorus 3.4 mg/dL (2.5-4.9)
[2018-01-20 12:11] LABS: Alkaline Phosphatase 67 U/L (45-117); Free T4 (Free Thyroxine) 0.82 ng/dL (0.76-1.46); Total Protein 6.5 g/dL (6.4-8.2)
[2018-01-20 13:13] LABS: Hemoglobin A1c 5.7 % (4.3-6.0)
[2018-01-20 13:18] LABS: Baso % (Auto) 0.1 % (0.0-2.0); Eos % (Auto) 0.1 % (0.0-4.0); Hematocrit 34.7 % (35.0-46.0); Hemoglobin 11.3 gm/dL (11.6-15.3); Lymph # (Auto) 1.3 th/mm3 (1.0-4.8); Lymph % (Auto) 11.5 % (9.0-44.0); Mean Corpuscular HGB Conc 32.5 % (32.0-36.0); Mean Corpuscular Hemoglobin 28.1 pg (27.0-34.0); Mean Corpuscular Volume 86.7 fL (80.0-100.0); Mean Platelet Volume 7.8 fL (7.0-11.0); Mono # (Auto) 0.6 th/mm3 (0.0-0.9); Mono % (Auto) 5.5 % (0.0-8.0); Neut # (Auto) 9.1 th/mm3 (1.8-7.7); Neut % (Auto) 82.8 % (16.0-70.0); Platelet Count 235 th/mm3 (150-450); Red Blood Count 4.01 mil/mm3 (4.00-5.30); Red Cell Distribution Width 18.6 % (11.6-17.2)
[2018-01-20] MEDS: Sod Chloride 0.9% Inj 1,000 ML IV.SIG SCH (13:26)
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
--- NOTE | 2018-01-20 16:38 | XR ---
EXAM DATE: 01/20/2018 4:33 PM EDT AGE/SEX: 47 years / Female INDICATIONS: Congestion. CLINICAL DATA: This is the patient's initial encounter. Patient reports that signs and symptoms have been present for 1 day and indicates a pain score of Nonresponsive. MEDICAL/SURGICAL HISTORY: . Seizures. Brain tumor. . Craniotomy. COMPARISON: No prior exams available for comparison. FINDINGS: A single AP view of the chest demonstrates the lungs to be symmetrically underinflated. Hazy opacifi cation bilaterally, which may be accentuated by low lung volumes. Probable bibasilar atelectasis. The cardiomediastinal contours are prominent, though this is likely at least partially related to low milind ng volumes. Osseous structures are intact. Partially imaged catheter tubing extending from the righ t neck into the upper abdomen. CONCLUSION: 1. Symmetric underinflation of the lungs. 2. Hazy opacification bilaterally, likely accentuated by low lung volumes, with probable bibasilar a telectasis. 3. Cardiomediastinal contours are prominent, which is likely at least partially related to low lung volumes. Electronically signed by: Joi Ramachandran MD 01/20/2018 4:37 PM EDT
--- NOTE | 2018-01-20 18:13 | MG ---
cc: Claudio Calderon MD ELECTROENCEPHALOGRAM RECORD NUMBER: [id number] DESCRIPTION: Generalized polymorphic 3-5 Hz activity, high amplitude of 20-70 microvolts occurring in a generalized fashion. Limited driving with photic stimulation. EEG variability noted. INTERPRETATION: Moderate encephalopathy. Clinical correlation. MD CHERYL Casey/diana , 05:11 PM , 05:17 PM
--- NOTE | 2018-01-20 18:35 | P.DS ---
Date of admission: 01/10/18 07:33 Primary care physician: Isaak Chacon Attending physician on discharge: Harshad Berg Anticipated date of discharge: 01/20/18 Brief History from admission: 47-year-old female with a medical history significant for childhood leukemia treated with chemotherapy and radiation who has previously had multiple meningiomas which were resected. Patient presented to the ER with complaint of headaches dizziness difficulty walking and"recurrence of 1 of those when she lumps over her forehead". Similar symptoms previously have preceded her meningioma diagnoses. Patient underwent head CT which showed right frontal neoplasm with TIRE SHOP MANAGER shunt in place. She was evaluated by neurosurgery in the ER and taken to the OR for craniotomy and meningioma resection which she tolerated well and was subsequently transferred to the ICU kept orally intubated on mechanical ventilation. I evaluated the patient following her arrival to the ICU after surgery. I discussed the case in detail with Dr. Cha her neurosurgeon. History is obtained by reviewing records and discussion with neurosurgery. Patient update on day of discharge: PATIENT REMAINS APHASIC MADE A DNR BY MOTHER PALLIATIVE CARE IS INVOLVED DW RN AND PT(NON-VERBAL) AND FAMILY AT BEDSIDE FAMILY WANTS HER TO GO TO HOSPICE IN AT [facility] TODAY DS: Diagnosis - Discharge Diagnosis (1) Aphasia Status: Acute (2) Brain tumor Status: Acute DS: Summary Hospital Course: 01/10: 47-year-old female with a medical history significant for childhood leukemia treated with chemotherapy and radiation who has previously had multiple meningiomas which were resected. Patient presented to the ER with complaint of headaches dizziness difficulty walking and"recurrence of 1 of those when she lumps over her forehead". Similar symptoms previously have preceded her meningioma diagnoses. Patient underwent head CT which showed right frontal neoplasm with TIRE SHOP MANAGER shunt in place. She was evaluated by neurosurgery in the ER and taken to the OR for craniotomy and meningioma resection which she tolerated well and was subsequently transferred to the ICU kept orally intubated on mechanical ventilation. I evaluated the patient following her arrival to the ICU after surgery. I discussed the case in detail with Dr. Cha her neurosurgeon. History is obtained by reviewing records and discussion with neurosurgery. 01/11:, Easily arousable, moving all 4 extremities. Orally intubated on mechanical ventilation at the time of my evaluation this morning. Off sedation. Initiated CPAP trials. 01/12: Extubated yesterday, tolerating well. Awake and alert. Following commands. Moves all 4 extremities. Knows she is in the hospital. PATIENT REMAINS APHASIC MADE A DNR BY MOTHER PALLIATIVE CARE IS INVOLVED DW RN AND PT(NON-VERBAL) AND FAMILY AT BEDSIDE FAMILY WANTS PATIENT TO GO TO INPATIENT HOSPICE TODAY DC TO [facility] - Time Spent with Patient Total time spent providing and/or coordinating discharge services: Greater than 30 minutes - Quality: VTE Deep Vein Thrombosis/Pulmonary Embolism Present on Admission: No Exam Vital signs: Vital Signs 01/19/18 19:43 01/19/18 20:00 01/20/18 00:00 Temperature 98.3 F 98.1 F Pulse Rate 86 96 H Respiratory Rate 22 18 Blood Pressure 125/63 129/60 Pulse Oximetry 97 98 95 01/20/18 04:00 01/20/18 08:00 01/20/18 10:00 Temperature 98.8 F 98.4 F Pulse Rate 80 76 70 Respiratory Rate 22 22 Blood Pressure 122/78 112/57 L Pulse Oximetry 93 L 100 01/20/18 12:00 01/20/18 14:00 01/20/18 16:00 Temperature 98.6 F 98.4 F Pulse Rate 60 69 66 Respiratory Rate 21 22 Blood Pressure 97/54 L 106/57 L Pulse Oximetry 98 94 L Intake & Output 01/19/18 01/20/18 01/20/18 18:59 06:59 18:59 Intake Total 105 / 105 1105 / 1105 905 / 905 Output Total 1001 / 1001 1400 / 1400 Balance -896 / -896 -295 / -295 905 / 905 Weight 72.3 kg Intake: IV 105 / 105 1105 / 1105 905 / 905 NS Inj 1,000 ML @ 75 mls/hr IV. 1000 / 1000 800 / 800 SIG .[id number] LAQUITA Rx#:[id number] Keppra Inj 500 MG In NS Inj 100 105 / 105 105 / 105 105 / 105 ML @ 400 mls/hr IV.SIG Q12H LAQUITA Rx#:[id number] Oral 0 / 0 Output: Urine 1000 / 1000 1100 / 1100 Stool 1 / 1 Estimated Blood Loss 300 / 300 Other: # Incontinent Voids 2 Date of Last Bowel Movement 01/19/18 01/20/18 01/20/18 # Bowel Movements 1 # Incontinent Bowel Movements 1 2 Narrative: GENERAL: Awake and alert, aphasic HEENT: Postsurgical dressing appear intact. CARDIOVASCULAR: Normal rate and regular rhythm without murmurs, gallops, or rubs. RESPIRATORY: Breath sounds equal and clear to auscultation bilaterally. GASTROINTESTINAL: Abdomen soft, non-tender, non-distended. Normal active bowel sounds MUSCULOSKELETAL: Extremities without cyanosis, or edema. NEURO: Aphasic. Follow some commands. Results Procedures completed during hospitalization: Date of procedure: 01/10/18 Procedure: Right frontal craniotomy and re-resection of meningioma Anesthesia: GENE Surgeon: Jun Cha MD High Pressure Cleaner: Junior Arteaga Estimated blood loss (mL): 100 Operation and Findings: Indications: This is a 47 year old woman with recurrent right frontal meningioma (last operation 04/[address] Leonard, with right frontal VPS placement ). She has had recurrence of grade II meningioma in the frontal region with headaches, edema, midline shift. Re-resection is indicated. Description of Procedure: Patient was brought to [facility] and the procedure was done under general anesthesia. Carlos catheter and appropriate lines were placed. Head was placed on a donut and the right frontal region was clipped, then prepped and draped in the usual sterile fashion. Old incision was marked, the infiltrated with local , then incised sharply. Care was taken to protect the old shunt in the middle of the flap. The flap was thin and two areas of small dehiscence were noted in the middle. The flap was elevated and adryan clips were applied to the wound edges. Old bone flap identified and the shunt within it was preserved. The anterior cranial plating flaps were released and a new trough was cut from Coral's point laterally and medially to open part of the old bone flap, but still preserving the shunt in place. Dura was opened sharply anterior to Coral's point and reflected anteriorly. Tumor was noted in scalp and sent as a separate sample but the bone did not look obviously involved. Dura was resected with tumor and dissection carried deep and anteriorly to separate plane of the brain with tumor, which was not always obvious. Tumor extended deep to falx and this was resected. It did not appear obviously arising from the falx and the general nature of the dura was thick even behind our resection. Adequate hemostasis was assured with bipolar cautery, surgiflo and thrombin soaked gelfoam. Dural substitue was replaced and bone flap replaced with the [place] plating. Wound closed carefully in layers with interrupted 2- 0 Vicryl for galea and jorge for skin. In places where the skin looked tenuous, vertical mattress nylon suture was used. Plan to remain intubated postop in ICU for extubation later vs. next morning. Neuro checks q1. Keppra 500mg BID Decadron 4mg IV q6 Imaging pending results of neuro exam. Wound sutures/jorge to remain for 3 weeks. Documented By: TOMAS LOVETT MD 01/10/18 1344 INTUBATION AND EXTUBATION AND VENT MANAGEMENT Completed studies during hospitalization: Laboratory Results WBC 11.0 th/mm3 (4.0-11.0) 01/20/18 12:27 RBC 4.01 mil/mm3 (4.00-5.30) 01/20/18 12:27 Hgb 11.3 gm/dL (11.6-15.3) L D 01/20/18 12:27 Hct 34.7 % (35.0-46.0) L 01/20/18 12:27 MCV 86.7 fL (80.0-100.0) 01/20/18 12:27 MCH 28.1 pg (27.0-34.0) 01/20/18 12:27 MCHC 32.5 % (32.0-36.0) 01/20/18 12:27 RDW 18.6 % (11.6-17.2) H 01/20/18 12:27 Plt Count 235 th/mm3 (150-450) 01/20/18 12:27 MPV 7.8 fL (7.0-11.0) 01/20/18 12:27 Prelim Diff (Auto) Slide review pending 01/12/18 09:34 Neut % (Auto) 82.8 % (16.0-70.0) H 01/20/18 12:27 Lymph % (Auto) 11.5 % (9.0-44.0) 01/20/18 12:27 [place] % (Auto) 5.5 % (0.0-8.0) 01/20/18 12:27 Eos % (Auto) 0.1 % (0.0-4.0) 01/20/18 12:27 Baso % (Auto) 0.1 % (0.0-2.0) 01/20/18 12:27 Neut # (Auto) 9.1 th/mm3 (1.8-7.7) H 01/20/18 12:27 Lymph # (Auto) 1.3 th/mm3 (1.0-4.8) 01/20/18 12:27 [place] # (Auto) 0.6 th/mm3 (0.0-0.9) 01/20/18 12:27 Eos # (Auto) 0.0 th/mm3 (0.0-0.4) 01/20/18 12:27 Baso # (Auto) 0.0 th/mm3 (0.0-0.2) 01/20/18 12:27 WBC Differential . 01/20/18 12:27 Diff Scan Auto diff confirmed 01/12/18 09:34 Differential Comment Auto diff final 01/20/18 12:27 Platelet Estimate Normal (Normal) 01/12/18 09:34 Platelet Morphology Normal (Normal) 01/12/18 09:34 PT 11.1 sec (9.8-11.6) 01/10/18 04:55 INR 1.1 Ratio 01/10/18 04:55 APTT 25.2 sec (24.3-30.1) 01/10/18 04:55 Puncture Site Art line 01/10/18 18:10 Patient Temperature 98.6 01/10/18 18:10 O2 Saturation 96 % (90-100) 01/10/18 18:10 ABG pH 7.40 (7.380-7.420) 01/10/18 18:10 ABG pCO2 35 mmHg (38-42) L 01/10/18 18:10 ABG pO2 103 mmHg (61-120) 01/10/18 18:10 ABG HCO3 21 mmol/L (22-26) L 01/10/18 18:10 ABG O2 Content 16.0 Vol % (12.0-20.0) 01/10/18 18:10 ABG Base Excess -2.7 mmol/L (-2-2) L 01/10/18 18:10 ABG Methemoglobin 1.3 % (0-2) 01/10/18 18:10 Lei Test Present 01/10/18 18:10 Hemoglobin 11.8 G/DL (12.0-16.0) L 01/10/18 18:10 Carboxyhemoglobin 1.0 % (0-4) 01/10/18 18:10 O2 Delivery Device Ventilator 01/10/18 18:10 Vent Setting Prvc/ac 01/10/18 18:10 Inspired O2 40 % 01/10/18 18:10 Critical Value No 01/10/18 18:10 Sodium 140 meq/L (136-145) 01/20/18 11:24 Potassium 4.2 meq/L (3.5-5.1) 01/20/18 11:24 Chloride 106 meq/L (98-107) 01/20/18 11:24 Carbon Dioxide 23.7 meq/L (21.0-32.0) 01/20/18 11:24 Anion Gap 10 meq/L (5-15) 01/20/18 11:24 BUN 21 mg/dL (7-18) H 01/20/18 11:24 Creatinine 0.65 mg/dL (0.50-1.00) 01/20/18 11:24 Estimated GFR Greater than 89 mL/min (>89) 01/20/18 11:24 POC Glucose 142 mg/dl (68-110) H 01/13/18 06:57 Random Glucose 96 mg/dL (74-106) 01/20/18 11:24 Hemoglobin A1c 5.7 % (4.3-6.0) 01/20/18 11:24 Calcium 8.4 mg/dL (8.5-10.1) L 01/20/18 11:24 Phosphorus 3.4 mg/dL (2.5-4.9) 01/20/18 11:24 Magnesium 2.5 mg/dL (1.5-2.5) 01/20/18 11:24 Total Bilirubin 0.4 mg/dL (0.2-1.0) 01/20/18 11:24 AST 16 U/L (15-37) 01/20/18 11:24 ALT 47 U/L (10-53) 01/20/18 11:24 Alkaline Phosphatase 67 U/L (45-117) 01/20/18 11:24 Total Protein 6.5 g/dL (6.4-8.2) 01/20/18 11:24 Albumin 3.1 g/dL (3.4-5.0) L 01/20/18 11:24 TSH 2.410 uIU/mL (0.358-3.740) 01/20/18 11:24 Free T4 0.82 ng/dL (0.76-1.46) 01/20/18 11:24 Nasal Screen MRSA (PCR) Not detected (Negative) 01/10/18 14:29 Blood Type B Positive 01/10/18 09:23 Antibody Screen Negative 01/10/18 09:23 Impressions Shunt Study 01/10/18 07:58 CONCLUSION: Intact shunt Head CT 01/15/18 15:56 CONCLUSION: 1. Postoperative changes are again noted, with mild interval increase in amount of gas in the frontal lobes. Head MRI 01/18/18 00:00 CONCLUSION: 1. No significant change in the one-week interval from the prior MRI. Again seen is a large heterogeneous mass involving the right frontal lobe with satellite lesion involving the falx more cephalad at the vertex. There is midline shift of 5 to 6 mm and a fair amount of vasogenic edema. No hydrocephaly or acute infarction observed. Chest X-Ray 01/20/18 00:00 CONCLUSION: 1. Symmetric underinflation of the lungs. 2. Hazy opacification bilaterally, likely accentuated by low lung volumes, with probable bibasilar atelectasis. 3. Cardiomediastinal contours are prominent, which is likely at least partially related to low lung volumes. Labs on day of discharge: Labs from last 24 hours 01/20/18 01/20/18 01/20/18 12:27 11:24 11:24 WBC 11.0 RBC 4.01 Hgb 11.3 L D Hct 34.7 L MCV 86.7 MCH 28.1 MCHC 32.5 RDW 18.6 H Plt Count 235 MPV 7.8 Neut % (Auto) 82.8 H Lymph % (Auto) 11.5 [place] % (Auto) 5.5 Eos % (Auto) 0.1 Baso % (Auto) 0.1 Neut # (Auto) 9.1 H Lymph # (Auto) 1.3 [place] # (Auto) 0.6 Eos # (Auto) 0.0 Baso # (Auto) 0.0 WBC Differential . Differential Comment Auto diff final Sodium 140 Potassium 4.2 Chloride 106 Carbon Dioxide 23.7 Anion Gap 10 BUN 21 H Creatinine 0.65 Estimated GFR Greater than 89 Random Glucose 96 Hemoglobin A1c 5.7 Calcium 8.4 L Phosphorus 3.4 Magnesium 2.5 Total Bilirubin 0.4 AST 16 ALT 47 Alkaline Phosphatase 67 Total Protein 6.5 Albumin 3.1 L TSH 2.410 Free T4 0.82 - Impressions ITS Impressions Shunt Study 01/10/18 07:58 CONCLUSION: Intact shunt Head CT 01/15/18 15:56 CONCLUSION: 1. Postoperative changes are again noted, with mild interval increase in amount of gas in the frontal lobes. Head MRI 01/18/18 00:00 CONCLUSION: 1. No significant change in the one-week interval from the prior MRI. Again seen is a large heterogeneous mass involving the right frontal lobe with satellite lesion involving the falx more cephalad at the vertex. There is midline shift of 5 to 6 mm and a fair amount of vasogenic edema. No hydrocephaly or acute infarction observed. Chest X-Ray 01/20/18 00:00 CONCLUSION: 1. Symmetric underinflation of the lungs. 2. Hazy opacification bilaterally, likely accentuated by low lung volumes, with probable bibasilar atelectasis. 3. Cardiomediastinal contours are prominent, which is likely at least partially related to low lung volumes. Discharge Plan - Discharge Disposition Patient Disposition: [facility] Hospice[facility] Facility - Discharge Condition Condition: Fair - Discharge Order Discharge Orders: Discharge Order (Routine); Ordered 01/20/18 Ordered By: Harshad Berg - Discharge Details Anticipated Discharge Date: 01/20/18 Discharge Comment: DC TO INPATIENT HOSPICE TODAY - Physicians Team Primary Care Provider: Isaak Chacon Attending Provider: Harshad Berg Other Providers: Gio Bhatt MD ; Vasyl Chowdary MD ; Leno Kellogg MD
[2018-01-20 21:46] VITALS: BP 123/73; PULSE 84; RESP 23; TEMP 98.7; O2SAT 93
== END 2018-01-20 21:35 | disposition hospice, inpatient (51) ==
LOC: NEPE 02:35 → NEDA 07:33 → N03 13:38
PROVIDERS: ADMIT Hospitalist; ATTEND Hospitalist
DX: R56.9 Unspecified convulsions; G93.6 Cerebral edema; Z88.2 Allergy status to sulfonamides; C71.9 Malignant neoplasm of brain, unspecified; Z51.5 Encounter for palliative care; G93.89 Other specified disorders of brain; Z86.73 Personal history of transient ischemic attack (TIA), and cerebral infarction without residual deficits; Z85.72 Personal history of non-Hodgkin lymphomas; Z66 Do not resuscitate; D32.0 Benign neoplasm of cerebral meninges; R26.2 Difficulty in walking, not elsewhere classified; Z98.2 Presence of cerebrospinal fluid drainage device; Z92.3 Personal history of irradiation; Z86.011 Personal history of benign neoplasm of the brain; R47.01 Aphasia; Z92.21 Personal history of antineoplastic chemotherapy; T81.31XA Disruption of external operation (surgical) wound, not elsewhere classified, initial encounter; Z87.891 Personal history of nicotine dependence; J95.821 Acute postprocedural respiratory failure